=== PATIENT | male | born 1935 | race Caucasian/White ===

== ENCOUNTER 2017-05-31 08:48 | Inpatient (IN) | payer MEDICARE, OTHER ==
[~2017-05-31] VITALS: Ht 182.9 cm; Wt 112.0 kg
[~2017-05-31 08:48] MED LIST: /MOXI40TA; ACET500C OR; ALDA25TA PO; ALLEVE PO; ASPI81TA83; ASPI81TA83 OR; CARV12.5 OR; CARVEDILOL; COLA100C2; CORE6.25; FENT100D25; GLUC1000; GLUC1000 PO; IBUP-1114 PO; IBUP400T OR; LASI40TA PO; LEVO500T PO; LIDODERM; LISI-538 PO; MAGN64TASA PO; MILKSUS; NICO21DI5 TD; OCEA0.65; PERC5TAB8; PRED20TA; PRIN5TAB; SENN8.6T5; SIMV10TA2; SIMV80TA OR; TYLE325T5 PO; VISI0.054 OU; ZANT150T; ZOCO10TA PO; ZOCO40TA; [UNRECOGNIZED DRUG - OTHER]
[2017-05-31] MEDS ORDERED: ASPIRIN 81 MG CHEW TABLET PO ONE (09:45)
[2017-05-31] MEDS ORDERED: methylPREDNISolone INJ 125 MG/2 ML VIAL (J2930) IV ONE (10:00)
[2017-05-31] MEDS: IPRATROPIUM 0.5MG/ALBUTEROL 2.5MG INH SOL UD 3ML (DUONEB)(J7620) NEB PRN ×2 (10:15→10:27)
[2017-05-31 10:19] LABS: ABG BASE EXCESS 0.4 (-2.0-2.0); ABG HCO3 26.2 MEQ/L (22.0-26.0); ABG PARTIAL PRESSURE CO2 46.5 mmHg (35.0-45.0); ABG STANDARD HCO3 24.8 MEQ/L (22.0-26.0); ABG TOTAL CO2 27.6 MEQ/L (23.0-31.0); ABG pH (ARTERIAL) 7.368 UNITS (7.350-7.450)
--- NOTE | 2017-05-31 10:24 | REP ---
Portable chest, single AP view, patient sitting: Comparison is 04/27/2014. There is an infiltrate inferiorly in the left lung. The previous left pleural effusion has resolved. The right lung is clear. Cardiac size upper normal. Anaya, mediastinum, bony thorax unremarkable. Impression: Infiltrate inferiorly in the left lung. Signed by Kishan Holman MD 05/31/2017 10:16 A
[2017-05-31 10:26] LABS: BASO # 0.1 10^3/uL (0.0-0.2); BASO % 0.3 % (0.0-1.0); EOS # 0.1 10^3/uL (0.0-0.50); EOS % 0.3 % (0.0-3.0); IMMATURE GRANULOCYTE % 0.8 % (0-0); LYMPH # 0.9 10^3/uL (1.5-4.5); LYMPH % 4.7 % (24.0-44.0); MEAN CORPUSCULAR HEMOGLOBIN 30.2 pg (27.0-33.0); MEAN CORPUSCULAR HGB CONC 32.4 g/dl (32.0-36.5); MEAN CORPUSCULAR VOLUME 93.2 fl (80.0-96.0); MONO # 1.4 10^3/uL (0.0-0.8); MONO % 7.6 % (0.0-5.0); NEUTROPHILS # 15.7 10^3/uL (1.8-7.7); NEUTROPHILS % 86.3 % (36.0-66.0); PLATELET COUNT, AUTOMATED 220 10^3/uL (150-450); RED CELL DISTRIBUTION WIDTH 14.8 % (11.5-14.5); WHITE BLOOD COUNT 18.2 10^3/uL (4.0-10.0)
[2017-05-31 10:41] LABS: ANION GAP 8 MEQ/L (8-16); BLOOD UREA NITROGEN 12 MG/DL (7-18); CALCIUM LEVEL 8.8 MG/DL (8.8-10.2); CARBON DIOXIDE LEVEL 27 MEQ/L (21-32); CHLORIDE LEVEL 104 MEQ/L (98-107); CREATININE FOR GFR 0.86 MG/DL (0.70-1.30); GLOMERULAR FILTRATION RATE > 60.0 (>35); GLUCOSE, FASTING 100 MG/DL (83-110); POTASSIUM SERUM 3.8 MEQ/L (3.5-5.1); SODIUM LEVEL 139 MEQ/L (136-145)
[2017-05-31 10:48] LABS: ALBUMIN/GLOBULIN RATIO 0.7 (1.00-1.93); BILIRUBIN,DIRECT 0.2 MG/DL (0.0-0.2); BILIRUBIN,TOTAL 0.6 MG/DL (0.2-1.0); TOTAL PROTEIN 7.3 GM/DL (6.4-8.2)
[2017-05-31] MEDS ORDERED: LevoFLOXacin IV 750 MG in APPROPRIATE DILUENT 1 EA IV ONE (11:00)
[2017-05-31] MEDS ORDERED: ASPI325T28 PO (11:05)
[2017-05-31] MEDS ORDERED: ALEV220T26 PO (11:05)
[2017-05-31] MEDS ORDERED: SALI0.6523 (11:05)
[2017-05-31] MEDS ORDERED: ACETAMINOPHEN TAB 650MG DOSE (2X325MG) PO PRN (11:45)
--- NOTE | 2017-05-31 16:16 | HPEPDOC ---
General Date of Admission May 31, 2017 at 11:38 Chief Complaint The patient is a 82-year-old male Presented to the ER with complaints of SOB, productive cough and subjective fever / chills. History of Present Illness Patient is a 82 year old male with a PMHx of COPD (not on oxygen), HTN , DLP, Chronic LE edema, Hx of AAA Peptic ulcer disease - s/p partial gastrectomy, who presented to the ER with complaints of worsening SOB Patient noted he had SOB and productive cough with yellow / green sputum for 1 month duration. He noted that there was no blood in his sputum. He also noted associated chills, denied fevers. Patient has also noted that he has associate left lower chest pain. Rate the pain as a 3/10, sharp, non-radiating, intermittent, possibly worsening with coughing / position. He denied any nausea, vomiting, abdominal pain, diarrhea or dysuria. He did not constipation. He denied any change in his weight or appetite. He has noted that he follows with Dr. Den Abarca 1 year ago, but subsequently didnt follow up with them since then. Since then he has stopped all his medications and has only been on ASA and Alieve. Upon arrival in the ER he had wheezing on physical exam. Imaging was consistent with a left lower lobe pneumonia. He was given a dose of Levaquin 750 IV and Methylprednisolone 125mg. Home Medications Scheduled PRN (Saline Nasal Orwell) 0.65 % Spr, 1 SPRAY NA for NASAL DRYNESS, (Reported) Aspirin (Aspirin) 325 Mg Tab, 325 MG PO for PAIN, (Reported) Naproxen Sodium (Aleve) 220 Mg Tab, 220 MG PO for PAIN, (Reported) Allergies Coded Allergies: Penicillins (Verified Allergy, Intermediate, RASH, 11/08/12) Penicillins Cross Reactors (Verified Allergy, Intermediate, RASH, 11/08/12) Morphine (Verified Adverse Reaction, Mild, N/V, 11/08/12) Past Medical History Medical History COPD (not on oxygen), HTN, DLP, Chronic LE edema, Hx of AAA Peptic ulcer disease - s/p Partial gastrectomy Surgical History Peptic ulcer repair (1961) Cardiac catheterization (15 years prior) Hernia repair Cholecystectomy Family History - Non-contributory given advanced age Social History - Denies the use of illicit drugs; Smoker since life at 1 ppd, Social alcohol use - Denies recent travel or sick contacts - Lives alone - Occupation; Unemployed, worked on [employer] Review of Symptoms Other systems Negative otherwise stated in HPI Vital Signs - Vitals: BP 146/81, HR 86, RR 16, Sat 93%NC2L, Temp 98.1 - General: Lying in bed, No acute distress, Speaking in full sentences, AAOx3 - HEENT: NC, AT, PERRLA, EOMI - CVS: RRR, +S1S2 - Lungs: Fair air entry bilaterally Left lower lung with rhonchi - Abdomen: Soft, Non-distended, Non-tender - Extremities: 2+ pitting edema bilaterally, No calf tenderness - Neuro: No focal motor or sensory deficit - Skin: No visible rashes Laboratory Data Labs 24H Laboratory Tests 2 05/31/17 09:58: Immature Granulocyte % (Auto) 0.8H, White Blood Count 18.2H, Red Blood Count 4.44, Hemoglobin 13.4L, Hematocrit 41.4L, Mean Corpuscular Volume 93.2, Mean Corpuscular Hemoglobin 30.2, Mean Corpuscular Hemoglobin Concent 32.4, Red Cell Distribution Width 14.8H, Platelet Count 220, Neutrophils (%) (Auto) 86.3H, Lymphocytes (%) (Auto) 4.7L, Monocytes (%) (Auto) 7.6H, Eosinophils (%) (Auto) 0.3, Basophils (%) (Auto) 0.3, Neutrophils # (Auto) 15.7H, Lymphocytes # (Auto) 0.9L, Monocytes # (Auto) 1.4H, Eosinophils # (Auto) 0.1, Basophils # (Auto) 0.1 , Immature Granulocyte # (Auto) 0.2H, Nucleated Red Blood Cells % (auto) 0.0, Anion Gap 8, Glomerular Filtration Rate > 60.0, Estimated Mean Plasma Glucose 140H, Hemoglobin A1c 6.5H, Blood Urea Nitrogen 12, Creatinine 0.86, Sodium Level 139, Potassium Level 3.8, Chloride Level 104, Carbon Dioxide Level 27, Calcium Level 8.8, Total Creatine Kinase 162, Creatine Kinase MB 2.0, Creatine Kinase MB Relative Index 1.23, Troponin I < 0.02 05/31/17 09:59: Lactic Acid Level 0.8, Aspartate Amino Transf (AST/SGOT) 14L, Alanine Aminotransferase (ALT/SGPT) 14, Alkaline Phosphatase 87, Total Bilirubin 0.6, Direct Bilirubin 0.2, WF-Aug-W-Type Natriuretic Peptide 737H, Total Protein 7.3 , Albumin 3.0L, Albumin/Globulin Ratio 0.70L, Thyroid Stimulating Hormone (TSH) 3.270 05/31/17 10:02: Blood Gas Bicarbonate Standard 24.8, Arterial Blood pH 7.368, Arterial Blood Partial Pressure CO2 46.5H, Arterial Blood Partial Pressure O2 92.0, Arterial Blood Total CO2 27.6, Arterial Blood HCO3 26.2H, Arterial Blood Base Excess 0.4 , Arterial Blood Oxygen Saturation 97.0 05/31/17 15:48: CBC/BMP Laboratory Tests 05/31/17 09:58 Red Blood Count 4.44, Mean Corpuscular Volume 93.2, Mean Corpuscular Hemoglobin 30.2, Mean Corpuscular Hemoglobin Concent 32.4, Red Cell Distribution Width 14.8 H, Neutrophils (%) (Auto) 86.3 H, Lymphocytes (%) (Auto) 4.7 L, Monocytes ( %) (Auto) 7.6 H, Eosinophils (%) (Auto) 0.3, Basophils (%) (Auto) 0.3, Neutrophils # (Auto) 15.7 H, Lymphocytes # (Auto) 0.9 L, Monocytes # (Auto) 1.4 H, Eosinophils # (Auto) 0.1, Basophils # (Auto) 0.1, Calcium Level 8.8, Total Creatine Kinase 162 Microbiology Microbiology 05/31/17 Blood Culture, Received Pending 05/31/17 Blood Culture, Received Pending 05/31/17 Gram Stain - Final, Resulted 05/31/17 Sputum Culture, Resulted Pending Plan / VTE VTE Prophylaxis Ordered?: Yes Plan Plan SOB, Productive cough and Chills likely 2/2 Community acquired pneumonia - Presented with 1 month history of SOB, productive cough, and chills - Found to require supplemental oxygen - Physical with left lower rhonchi - Labs with leukocytosis at 18 - ABG reveals mild pCO2 retention without any change in pH - CXR 05/31: infiltrate inferiorly in the left lung - c/w Levaquin 750 Acute on Chronic LE edema - possibly 2/2 CHF exacerbation - Notes that he has been having worsening of LE edema in last 2 months - Denies history of CHF - Physical with 2+ pitting edema bilaterally - CXR without evidence of fluid overload - ECHO 03/2014: Diastolic dysfunction, EF of 60% - Will order 2D-ECHO - c/w Strict ins and outs, daily weights - Started Furosemide 40 mg IV q12h COPD - Physical currently did not reveal wheezing - s/p Solumedrol 125mg in ER - c/w Duoneb inhaled therapy HTN - BP remains well controlled - Has not been on any medications as outpatient DLP - Has not been on any medications as outpatient Hx of AAA - Will get US abdomen Peptic ulcer disease - s/p Partial gastrectomy / GERD - Notes he experiences heart burn - Has not been on any medications as outpatient - Will start Protonix DVT prophylaxis - Will start Lovenox TALIA VIDAL MD May 31, 2017 16:15
[2017-05-31 17:15] VITALS: BP 173/117
[2017-05-31] MEDS: SENOKOT S TAB PO SCH ×2 (17:58→20:47)
[2017-05-31] MEDS: FUROSEMIDE 40 MG/4 ML VIAL (J1940) IV SCH ×2 (17:58→18:30)
[2017-05-31 18:08] VITALS: BP 148/88
[2017-05-31] MEDS: ENOXAPARIN 40 MG/0.4 ML SYRINGE (J1650) SC SCH (18:30)
[2017-05-31] MEDS: PANTOPRAZOLE 40MG TAB (PROTONIX) PO SCH (18:31)
[2017-05-31 20:00] VITALS: BP 139/66
--- NOTE | 2017-05-31 21:10 | ECGEPIP ---
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
[2017-06-01] VITALS: BP 137/70
[2017-06-01] MEDS: BENZONATATE 100 MG CAP PO SCH ×4 (00:45→21:39)
[2017-06-01] MEDS ORDERED: SLF 3 ML SYR IV PRN (02:15)
[2017-06-01 04:00] VITALS: BP 128/60
[2017-06-01 05:47] LABS: BASO % 0.2 % (0.0-1.0); IMMATURE GRANULOCYTE % 1.2 % (0-0); LYMPH # 0.8 10^3/uL (1.5-4.5); LYMPH % 4.3 % (24.0-44.0); MEAN CORPUSCULAR HEMOGLOBIN 30.1 pg (27.0-33.0); MEAN CORPUSCULAR HGB CONC 32.6 g/dl (32.0-36.5); MEAN CORPUSCULAR VOLUME 92.3 fl (80.0-96.0); MONO # 0.9 10^3/uL (0.0-0.8); MONO % 5.3 % (0.0-5.0); NEUTROPHILS # 15.8 10^3/uL (1.8-7.7); PLATELET COUNT, AUTOMATED 232 10^3/uL (150-450); RED CELL DISTRIBUTION WIDTH 14.6 % (11.5-14.5); WHITE BLOOD COUNT 17.8 10^3/uL (4.0-10.0)
[2017-06-01 06:18] LABS: ALBUMIN 2.7 GM/DL (3.2-5.2); ALBUMIN/GLOBULIN RATIO 0.61 (1.00-1.93); ALKALINE PHOSPHATASE 84 U/L (45-117); ALT/SGPT 17 U/L (12-78); ANION GAP 7 MEQ/L (8-16); AST/SGOT 14 U/L (15-37); BILIRUBIN,TOTAL 0.2 MG/DL (0.2-1.0); BLOOD UREA NITROGEN 19 MG/DL (7-18); CALCIUM LEVEL 8.9 MG/DL (8.8-10.2); CARBON DIOXIDE LEVEL 29 MEQ/L (21-32); CHLORIDE LEVEL 103 MEQ/L (98-107); CREATININE FOR GFR 1.12 MG/DL (0.70-1.30); GLOMERULAR FILTRATION RATE > 60.0 (>35); GLUCOSE, FASTING 160 MG/DL (83-110); MAGNESIUM LEVEL 1.8 MG/DL (1.8-2.4); POTASSIUM SERUM 4.3 MEQ/L (3.5-5.1); SODIUM LEVEL 139 MEQ/L (136-145); TOTAL PROTEIN 7.1 GM/DL (6.4-8.2)
[2017-06-01] MEDS: SLF 3 ML SYR IV SCH ×3 (07:01→21:43)
[2017-06-01 08:00] VITALS: BP 132/76
[2017-06-01] MEDS: FUROSEMIDE 40 MG/4 ML VIAL (J1940) IV SCH ×2 (09:33→17:53)
[2017-06-01] MEDS: PANTOPRAZOLE 40MG TAB (PROTONIX) PO SCH (09:33)
[2017-06-01] MEDS: SENOKOT S TAB PO SCH ×2 (09:33→21:40)
[2017-06-01] MEDS: ENOXAPARIN 40 MG/0.4 ML SYRINGE (J1650) SC SCH (09:33)
--- NOTE | 2017-06-01 09:41 | IPNPDOC ---
Subjective Date Seen The patient was seen on 06/01/17. Subjective Chief Complaint/HPI The patient is a 82-year-old male admitted with a reason for visit of Left Lower Lobe Pneumonia. Events since last encounter Denies c/o today. s/p US for AAA eval. Planned echo today. Remains oxygen dependent. Constitutional: Denies: Chills, Fever, Night Sweats Pulmonary: Reports: Dyspnea, Cough Cardiovascular: Denies: Chest Pain, Palpitations, Orthopnea, Paroxysmal Noc. Dyspnea, Lt Headedness Gastrointestinal: Denies: Nausea, Vomiting, Abdominal Pain, Diarrhea, Constipation Psych: Reports: Mood Normal, Denies: Depression, Memory Issues Objective Physical Examination General Exam: Positive: Alert, No Acute Distress Eye Exam: Positive: PERRLA, Conjunctiva & lids normal, EOMI, Negative: Sclera icteric ENT Exam: Positive: Atraumatic, Mucous membr. moist/pink, Pharynx Normal Neck Exam: Positive: Supple, Negative: JVD, thyromegaly Chest Exam: Positive: Diminished (throughout) Heart Exam: Positive: Rate Normal, Regular Rhythm, Normal S1, Normal S2, Negative: Murmurs, Rubs Telemetry: Positive: No significant arrhythmia Extremity Exam: Positive: Edema (2+) Assessment /Plan Problems (1) CHF (congestive heart failure) Problem Text: 2 diastolic dysfx-03/2014 TTE LVEF 60% 06/01 -1100 cc on fur 40 IV BID 05/31/17 TTE P 05/31/17 BNP 737 (2) Left lower lobe pneumonia Status: Acute Problem Text: D2 levo 750 IV 06/01 afebrile, WBC down to 17.8, less dyspnea/cough Oxygen dependent with 2LNC 05/31/17 CXR c large LLL opacity repeat CT chest 08/01/14 CT chest LLL posterior basilar consolidation, increased c/w 2008- concern for possible malignancy-patient REFUSED any workup at that time 05/31/17 BCX NG 05/31/17 SCX P (3) COPD exacerbation Status: Acute Problem Text: Duonebs q 6 hrs. Received 1 time dose of Solumedrol in ED. (4) Diabetes Status: Chronic Response to Treatment: Stable Problem Text: Continue diet control hgba1c 6.5 (5) AAA (abdominal aortic aneurysm) Status: Chronic Problem Text: 05/2017 now 47 mm diameter c 77mm length-plan outpatient f/u c Raad 07/2014 max shelton [address] chest (6) Non-compliance Status: Acute Problem Text: has difficulty with transportation for f/u appts. PFS aware. Plan/VTE VTE Prophylaxis Ordered?: Yes VS, I&O, 24H, Fishbone Vital Signs/I&O Vital Signs Date Time Temp Pulse Resp B/P (MAP) Pulse Ox O2 Delivery O2 Flow Rate FiO2 06/01/17 08:00 97.8 72 20 132/76 (94) 94 Nasal Cannula 2.0 I&O- Last 24 Hours up to 6 AM 06/02/17 06:00 Intake Total 0 ml Output Total 0 ml Balance 0 ml Laboratory Data 24H LABS Laboratory Tests 2 05/31/17 09:58: Immature Granulocyte % (Auto) 0.8H, White Blood Count 18.2H, Red Blood Count 4.44, Hemoglobin 13.4L, Hematocrit 41.4L, Mean Corpuscular Volume 93.2, Mean Corpuscular Hemoglobin 30.2, Mean Corpuscular Hemoglobin Concent 32.4, Red Cell Distribution Width 14.8H, Platelet Count 220, Neutrophils (%) (Auto) 86.3H, Lymphocytes (%) (Auto) 4.7L, Monocytes (%) (Auto) 7.6H, Eosinophils (%) (Auto) 0.3, Basophils (%) (Auto) 0.3, Neutrophils # (Auto) 15.7H, Lymphocytes # (Auto) 0.9L, Monocytes # (Auto) 1.4H, Eosinophils # (Auto) 0.1, Basophils # (Auto) 0.1 , Immature Granulocyte # (Auto) 0.2H, Nucleated Red Blood Cells % (auto) 0.0, Anion Gap 8, Glomerular Filtration Rate > 60.0, Estimated Mean Plasma Glucose 140H, Hemoglobin A1c 6.5H, Blood Urea Nitrogen 12, Creatinine 0.86, Sodium Level 139, Potassium Level 3.8, Chloride Level 104, Carbon Dioxide Level 27, Calcium Level 8.8, Total Creatine Kinase 162, Creatine Kinase MB 2.0, Creatine Kinase MB Relative Index 1.23, Troponin I < 0.02 05/31/17 09:59: Lactic Acid Level 0.8, Aspartate Amino Transf (AST/SGOT) 14L, Alanine Aminotransferase (ALT/SGPT) 14, Alkaline Phosphatase 87, Total Bilirubin 0.6, Direct Bilirubin 0.2, FX-Vop-L-Type Natriuretic Peptide 737H, Total Protein 7.3 , Albumin 3.0L, Albumin/Globulin Ratio 0.70L, Thyroid Stimulating Hormone (TSH) 3.270 05/31/17 10:02: Blood Gas Bicarbonate Standard 24.8, Arterial Blood pH 7.368, Arterial Blood Partial Pressure CO2 46.5H, Arterial Blood Partial Pressure O2 92.0, Arterial Blood Total CO2 27.6, Arterial Blood HCO3 26.2H, Arterial Blood Base Excess 0.4 , Arterial Blood Oxygen Saturation 97.0 05/31/17 15:48: Total Creatine Kinase 164, Creatine Kinase MB 2.1, Creatine Kinase MB Relative Index 1.28, Troponin I < 0.02 05/31/17 22:06: Total Creatine Kinase 179, Creatine Kinase MB 2.0, Creatine Kinase MB Relative Index 1.11, Troponin I < 0.02 06/01/17 05:31: Immature Granulocyte % (Auto) 1.2H, White Blood Count 17.8H, Red Blood Count 4.29L, Hemoglobin 12.9L, Hematocrit 39.6L, Mean Corpuscular Volume 92.3, Mean Corpuscular Hemoglobin 30.1, Mean Corpuscular Hemoglobin Concent 32.6, Red Cell Distribution Width 14.6H, Platelet Count 232, Neutrophils (%) (Auto) 89.0H, Lymphocytes (%) (Auto) 4.3L, Monocytes (%) (Auto) 5.3H, Eosinophils (%) (Auto) 0.0, Basophils (%) (Auto) 0.2, Neutrophils # (Auto) 15.8H, Lymphocytes # (Auto) 0.8L, Monocytes # (Auto) 0.9H, Eosinophils # (Auto) 0.0, Basophils # (Auto) 0.0 , Immature Granulocyte # (Auto) 0.2H, Nucleated Red Blood Cells % (auto) 0.0, Anion Gap 7L, Glomerular Filtration Rate > 60.0, Blood Urea Nitrogen 19#H, Creatinine 1.12, Sodium Level 139, Potassium Level 4.3, Chloride Level 103, Carbon Dioxide Level 29, Calcium Level 8.9, Aspartate Amino Transf (AST/SGOT) 14L, Alanine Aminotransferase (ALT/SGPT) 17, Alkaline Phosphatase 84, Total Bilirubin 0.2#, Total Protein 7.1, Albumin 2.7L, Magnesium Level 1.8, Albumin/ Globulin Ratio 0.61L CBC/BMP Laboratory Tests 05/31/17 09:58 Red Blood Count 4.44, Mean Corpuscular Volume 93.2, Mean Corpuscular Hemoglobin 30.2, Mean Corpuscular Hemoglobin Concent 32.4, Red Cell Distribution Width 14.8 H, Neutrophils (%) (Auto) 86.3 H, Lymphocytes (%) (Auto) 4.7 L, Monocytes ( %) (Auto) 7.6 H, Eosinophils (%) (Auto) 0.3, Basophils (%) (Auto) 0.3, Neutrophils # (Auto) 15.7 H, Lymphocytes # (Auto) 0.9 L, Monocytes # (Auto) 1.4 H, Eosinophils # (Auto) 0.1, Basophils # (Auto) 0.1, Calcium Level 8.8, Total Creatine Kinase 162 06/01/17 05:31 Red Blood Count 4.29 L, Mean Corpuscular Volume 92.3, Mean Corpuscular Hemoglobin 30.1, Mean Corpuscular Hemoglobin Concent 32.6, Red Cell Distribution Width 14.6 H, Neutrophils (%) (Auto) 89.0 H, Lymphocytes (%) (Auto ) 4.3 L, Monocytes (%) (Auto) 5.3 H, Eosinophils (%) (Auto) 0.0, Basophils (%) ( Auto) 0.2, Neutrophils # (Auto) 15.8 H, Lymphocytes # (Auto) 0.8 L, Monocytes # (Auto) 0.9 H, Eosinophils # (Auto) 0.0, Basophils # (Auto) 0.0, Calcium Level 8.9, Aspartate Amino Transf (AST/SGOT) 14 L, Alanine Aminotransferase (ALT/SGPT ) 17, Alkaline Phosphatase 84, Total Bilirubin 0.2 #, Total Protein 7.1, Albumin 2.7 L Microbiology Microbiology 05/31/17 Blood Culture, Received Pending 05/31/17 Blood Culture, Received Pending 05/31/17 Gram Stain - Final, Resulted 05/31/17 Sputum Culture, Resulted Pending Rosaura Buck Jun 01, 2017 09:41 Den Abarca M.D. Jun 01, 2017 16:05
--- NOTE | 2017-06-01 10:00 | REP ---
Abdominal aorta ultrasound: Abdominal Aortic Measurements are as follows: Proximal 2.7 cm AP 2.5 cm TRV Renal Artery Level 2.6 cm AP 3.0 cm TRV Mid Aorta 4.7 cm AP 4.4 cm TRV Distal Aorta 4.6 cm AP 4.0 cm TRV R Iliac Artery 1.9 cm AP 1.7 cm TRV L Iliac Artery 1.8 cm AP 1.8 cm TRV The study is technically limited because of bowel gas and patient body habitus. There is a fusiform aneurysm in the mid and distal aorta measuring up to 4.7 cm diameter. The aneurysm spans a craniocaudad length of 7.7 cm. The right and left common iliac arteries are ectatic. Signed by Kishan Holman MD 06/01/2017 09:51 A
[2017-06-01] MEDS: LevoFLOXacin IV 750 MG in APPROPRIATE DILUENT 1 EA IV SCH (11:24)
[2017-06-01 12:00] VITALS: BP 149/70
[2017-06-01 16:00] VITALS: BP 146/95
[2017-06-01] MEDS ORDERED: ISOVUE-370 76% 100ML VIAL (Q9967) As Ordered ONE (17:08)
[2017-06-01 20:00] VITALS: BP 126/90
--- NOTE | 2017-06-01 20:07 | REP ---
CT CHEST WITH CONTRAST: 06/01/2017. Comparison: Portable chest 05/31/2017, CT chest 08/01/2014. Clinical history: Left lower lobe chest radiograph opacity. Technique: The patient received 75 mL of Isovue 370 with scanning through the chest with coronal and sagittal reconstructions. Findings. Lungs are well inflated. The lungs are without definite effusion on the right. Small loculated pleural effusion on the left. Chronic opacity in the left lower lobe. Curvilinear stranding towards the hilum, pleural-based and similar, but not identical appearance in size to the previous CT. There is cylindrical bronchiectatic change in the lower lobe on the left. Areas of patchy fibrotic change in the lingula are also noted and stable. Heart not grossly enlarged. There is no pericardial thickening or effusion. The aorta has calcifications at the root, arch and descending portion without aneurysm or dissection. Central pulmonary arteries are without filling defect. No pathologic sized mediastinal or hilar adenopathy is noted. There is no axillary or supraclavicular mass. Bone windows show the sternum, manubrium, medial clavicle heads, scapulae, small portions of the humeral heads without destructive lesion. There are degenerative changes at the glenohumeral joints. Marginal osteophytes are seen throughout the thoracic spine with vacuum phenomenon at L1-2 at the lower end of the field of view. No compression deformity or paraspinal hematomas. Visualized ribs and scapula intact. In the upper abdomen that portion of liver included was unremarkable. There was no splenic mass seen and the spleen is only seen in part. Gallbladder surgically absent. Visualized pancreas intact. Retained food in the stomach. No hiatal hernia. Impression: 1. Zone of chronic consolidative opacity posterior basal segment of the left lower lobe, stable to slightly smaller compared to 2009 with curvilinear markings extending towards the hilum. I suspect rounded atelectasis or chronic fibrosis. Small loculated pleural effusion again seen. 2. No gross cardiomegaly. 3. COPD. Some underlying fibrotic changes without other acute finding. Signed by Guanaco Bhatt MD 06/01/2017 08:30 P
[2017-06-02] VITALS: BP 162/79
[2017-06-02 04:00] VITALS: BP 132/69
[2017-06-02 05:44] LABS: BASO # 0.1 10^3/uL (0.0-0.2); BASO % 0.4 % (0.0-1.0); EOS # 0.1 10^3/uL (0.0-0.50); EOS % 0.4 % (0.0-3.0); IMMATURE GRANULOCYTE % 1.1 % (0-0); LYMPH # 1.3 10^3/uL (1.5-4.5); LYMPH % 7.9 % (24.0-44.0); MEAN CORPUSCULAR HGB CONC 32.2 g/dl (32.0-36.5); MONO # 1.3 10^3/uL (0.0-0.8); MONO % 8.2 % (0.0-5.0); PLATELET COUNT, AUTOMATED 243 10^3/uL (150-450); RED CELL DISTRIBUTION WIDTH 14.9 % (11.5-14.5); WHITE BLOOD COUNT 15.9 10^3/uL (4.0-10.0)
[2017-06-02 06:08] LABS: ALBUMIN 2.6 GM/DL (3.2-5.2); ALKALINE PHOSPHATASE 88 U/L (45-117); ALT/SGPT 17 U/L (12-78); ANION GAP 4 MEQ/L (8-16); AST/SGOT 15 U/L (15-37); BILIRUBIN,TOTAL 0.2 MG/DL (0.2-1.0); BLOOD UREA NITROGEN 25 MG/DL (7-18); CALCIUM LEVEL 8.5 MG/DL (8.8-10.2); CARBON DIOXIDE LEVEL 34 MEQ/L (21-32); CHLORIDE LEVEL 103 MEQ/L (98-107); CREATININE FOR GFR 1.19 MG/DL (0.70-1.30); GLOMERULAR FILTRATION RATE > 60.0 (>35); GLUCOSE, FASTING 125 MG/DL (83-110); MAGNESIUM LEVEL 1.9 MG/DL (1.8-2.4); POTASSIUM SERUM 3.9 MEQ/L (3.5-5.1); SODIUM LEVEL 141 MEQ/L (136-145); TOTAL PROTEIN 6.9 GM/DL (6.4-8.2)
[2017-06-02] MEDS: SLF 3 ML SYR IV SCH ×3 (06:14→20:07)
[2017-06-02 08:00] VITALS: BP 130/88
[2017-06-02] MEDS: BENZONATATE 100 MG CAP PO SCH ×3 (08:25→20:07)
[2017-06-02] MEDS: PANTOPRAZOLE 40MG TAB (PROTONIX) PO SCH (08:25)
[2017-06-02] MEDS: FUROSEMIDE 40 MG/4 ML VIAL (J1940) IV SCH ×2 (08:25→17:23)
[2017-06-02] MEDS: ENOXAPARIN 40 MG/0.4 ML SYRINGE (J1650) SC SCH (08:26)
[2017-06-02] MEDS: SENOKOT S TAB PO SCH ×2 (08:26→20:07)
--- NOTE | 2017-06-02 09:04 | IPNPDOC ---
Subjective Date Seen The patient was seen on 06/02/17. Subjective Chief Complaint/HPI The patient is a 82-year-old male admitted with a reason for visit of Left Lower Lobe Pneumonia. Events since last encounter Improving symptoms. Denies c/o today. Constitutional: Denies: Chills, Fever, Night Sweats Pulmonary: Reports: Dyspnea, Cough Cardiovascular: Denies: Chest Pain, Palpitations, Orthopnea Gastrointestinal: Denies: Nausea, Vomiting, Abdominal Pain, Diarrhea, Constipation Genitourinary: Denies: Dysuria, Frequency, Incontinence, Retention Objective Physical Examination General Exam: Positive: Alert, No Acute Distress Eye Exam: Positive: PERRLA, Conjunctiva & lids normal, EOMI, Negative: Sclera icteric ENT Exam: Positive: Atraumatic, Mucous membr. moist/pink, Pharynx Normal Neck Exam: Positive: Supple, Negative: JVD, thyromegaly Chest Exam: Positive: Wheezing, Diminished (throughout) Heart Exam: Positive: Rate Normal, Regular Rhythm, Normal S1, Normal S2, Negative: Murmurs, Rubs Telemetry: Positive: No significant arrhythmia Extremity Exam: Positive: Edema (2+) Assessment /Plan Problems (1) Diastolic CHF, acute on chronic Problem Text: 06/02/17: Echo ordered for this admission. H/o diastolic dysfunction: 03/2014 TTE LVEF 60% 06/01: Net -1100 cc on fur 40 IV BID 05/31/17 TTE P 05/31/17 BNP 737 (2) Left lower lobe pneumonia Status: Acute Problem Text: D3 levo 750 IV 06/02/17: add on Solumedrol for wheezing. remains oxygen dependent. may need to go home with oxygen. 06/01 afebrile, WBC down to 17.8, less dyspnea/cough; oxygen dependent with 2LNC Chest CT on 06/01: 1. Zone of chronic consolidative opacity posterior basal segment of the left lower lobe, stable to slightly smaller compared to 2008 with curvilinear markings extending towards the hilum. I suspect rounded atelectasis or chronic fibrosis. Small loculated pleural effusion again seen 05/31/17 CXR c large LLL opacity 08/01/14 CT chest LLL posterior basilar consolidation, increased c/w 2008- concern for possible malignancy-patient REFUSED any workup at that time 05/31/17 BCX NG 05/31/17 SCX P (3) COPD exacerbation Status: Acute Problem Text: 06/02/17: add on Solumedrol for wheezing. remains oxygen dependent. may need to go home with oxygen Duonebs q 6 hrs. Received 1 time dose of Solumedrol in ED. (4) Diabetes Status: Chronic Response to Treatment: Stable Problem Text: Continue diet control Hgb A1c 6.5 (5) AAA (abdominal aortic aneurysm) Status: Chronic Problem Text: 05/2017 now 47 mm diameter with 77mm length - plan outpatient f/ u with Dr. Shankar 07/2014 max diameter [address] chest (6) Non-compliance Status: Acute Problem Text: has difficulty with transportation for f/u appts. PFS aware. Plan/VTE VTE Prophylaxis Ordered?: Yes Plan Family Medicine Attending Note: I saw and examined Mr. Tamayo this afternoon; I discussed his care with RK Hutton and I agree with her note as documented. The patient states he is feeling better but has poor air movement is still requiring O2 - I agree that we may need to arrange for home O2. I discussed with him the importance of following up with Dr. Abarca and seeing vascular surgery; I advised him that his AAA could rupture and cause if not treated. He states he is willing to meet with the surgeon but he is not sure if he is willing to undergo surgery. (KES) VS, I&O, 24H, Fishbone Vital Signs/I&O Vital Signs Date Time Temp Pulse Resp B/P (MAP) Pulse Ox O2 Delivery O2 Flow Rate FiO2 06/02/17 08:28 Nasal Cannula 3.0 06/02/17 08:00 97.4 82 20 130/88 (102) 91 I&O- Last 24 Hours up to 6 AM 06/03/17 06:00 Output Total 100 ml Balance -100 ml Laboratory Data 24H LABS Laboratory Tests 2 06/01/17 21:42: Bedside Glucose (Misc Panel) 143H 06/02/17 05:25: Immature Granulocyte % (Auto) 1.1H, White Blood Count 15.9H, Red Blood Count 4.27L, Hemoglobin 12.8L, Hematocrit 39.7L, Mean Corpuscular Volume 93.0, Mean Corpuscular Hemoglobin 30.0, Mean Corpuscular Hemoglobin Concent 32.2, Red Cell Distribution Width 14.9H, Platelet Count 243, Neutrophils (%) (Auto) 82.0H, Lymphocytes (%) (Auto) 7.9L, Monocytes (%) (Auto) 8.2H, Eosinophils (%) (Auto) 0.4, Basophils (%) (Auto) 0.4, Neutrophils # (Auto) 13.0H, Lymphocytes # (Auto) 1.3L, Monocytes # (Auto) 1.3H, Eosinophils # (Auto) 0.1, Basophils # (Auto) 0.1 , Immature Granulocyte # (Auto) 0.2H, Nucleated Red Blood Cells % (auto) 0.0, Anion Gap 4L, Glomerular Filtration Rate > 60.0, Blood Urea Nitrogen 25H, Creatinine 1.19, Sodium Level 141, Potassium Level 3.9, Chloride Level 103, Carbon Dioxide Level 34H, Calcium Level 8.5L, Aspartate Amino Transf (AST/SGOT) 15, Alanine Aminotransferase (ALT/SGPT) 17, Alkaline Phosphatase 88, Total Bilirubin 0.2, Total Protein 6.9, Albumin 2.6L, Magnesium Level 1.9, Albumin/ Globulin Ratio 0.60L CBC/BMP Laboratory Tests 06/02/17 05:25 Red Blood Count 4.27 L, Mean Corpuscular Volume 93.0, Mean Corpuscular Hemoglobin 30.0, Mean Corpuscular Hemoglobin Concent 32.2, Red Cell Distribution Width 14.9 H, Neutrophils (%) (Auto) 82.0 H, Lymphocytes (%) (Auto ) 7.9 L, Monocytes (%) (Auto) 8.2 H, Eosinophils (%) (Auto) 0.4, Basophils (%) ( Auto) 0.4, Neutrophils # (Auto) 13.0 H, Lymphocytes # (Auto) 1.3 L, Monocytes # (Auto) 1.3 H, Eosinophils # (Auto) 0.1, Basophils # (Auto) 0.1, Calcium Level 8.5 L, Aspartate Amino Transf (AST/SGOT) 15, Alanine Aminotransferase (ALT/SGPT ) 17, Alkaline Phosphatase 88, Total Bilirubin 0.2, Total Protein 6.9, Albumin 2.6 L Microbiology Microbiology 05/31/17 Blood Culture - Preliminary, Resulted No growth after 24 hours . All specim... 05/31/17 Blood Culture - Preliminary, Resulted No growth after 24 hours . All specim... 05/31/17 Gram Stain - Final, Complete 05/31/17 Sputum Culture - Final, Complete Rosaura Buck Jun 02, 2017 09:04 CORIN SINGH MD Jun 02, 2017 14:32
[2017-06-02] MEDS ORDERED: methylPREDNISolone INJ 125 MG/2 ML VIAL (J2930) IV ONE (09:30)
[2017-06-02] MEDS: LevoFLOXacin IV 750 MG in APPROPRIATE DILUENT 1 EA IV SCH (11:37)
[2017-06-02] MEDS ORDERED: INFLUENZA VIRUS VACCINE HIGH DOSE 0.5 ML SYRINGE (90662) IM ONE (12:00)
[2017-06-02] MEDS ORDERED: PREVNAR 13 VACCINE SYRINGE (CPT CODE:90670) IM ONE (12:00)
[2017-06-02 13:50] VITALS: BP 140/81
[2017-06-02] MEDS: methylPREDNISolone INJ 125 MG/2 ML VIAL (J2930) IV SCH (17:23)
[2017-06-02 20:11] VITALS: BP 134/61
[2017-06-03] MEDS: methylPREDNISolone INJ 125 MG/2 ML VIAL (J2930) IV SCH ×2 (00:54→08:57)
[2017-06-03 02:00] VITALS: BP 128/70
[2017-06-03 06:00] VITALS: BP 119/55
[2017-06-03] MEDS: SLF 3 ML SYR IV SCH ×3 (06:09→21:00)
--- NOTE | 2017-06-03 06:27 | ECHO ---
DATE OF PROCEDURE: 06/01/2017 DATE OF : 1935 AGE: 82 GENDER: Male HEIGHT: 72 inches WEIGHT: 264 pounds BODY SURFACE AREA: 2.4 meters squared INPATIENT: PCU Room 3224 REFERRING PHYSICIAN: Dr. Abelardo Mueller INDICATIONS: Chest pain. Edema. MEASUREMENTS: 2-D Measurements: RV: 3.9 cm LV: 4.9 cm Septum: 1.2 cm Posterior wall: 1.2 cm Aortic root: 3.6 cm LA: 4.5 cm LVEF: 60-65% Doppler Measurements: AV: 1.2 m/s LVOT: 0.73 m/s LVOT diameter: 2.5 cm MV - E: 63 A 83 EA ratio: 0.8 Early mitral deceleration time: 148 ms E prime: 6 A prime: 10 E/E prime ratio: 10.4 PV: 0.7 m/s Pulmonary artery acceleration time: 88 ms PASP: 39 mmHg IVC: 1.8 cm COMMENTS: Normal sinus rhythm without intraventricular conduction disturbance. Technically difficult study in light of the patient's body habitus and pulmonary disease, but some diagnostically useful information was still obtained. Mildly dilated left atrium, but normal left ventricular size. Right heart chamber sizes were normal. LV wall thickness was upper limits of normal to slightly hypertrophied. On real-time imaging from the parasternal and projections wall motion was symmetrical and normal. Mild mitral annular thickening, but normal leaflet thickness and excursion with no posterior systolic buckling. Three equal size aortic cusps with mildly thickened cusp edges, but adequate cusp separation. Normal aortic root size. No apparent intracardiac mass. Minuscule posterior pericardial effusion without evidence of cardiac chamber compression. Color flow Doppler study taken from the parasternal and apical projection showed trace mitral, but no aortic or more than trace tricuspid insufficiency. Guided continuous wave Doppler of his aortic valve showed a normal peak systolic velocity against LV outflow tract obstruction. Pulsed and continuous wave Doppler of his LV inflow tract taken from the apical four-chamber projection showed normal diastolic filling velocities against mitral stenosis. It was more prominent late diastolic/atrial dependent filling pattern. A degree of LV diastolic dysfunction was confirmed using tissue Doppler of his mitral annulus, but current estimated mean left atrial pressure was normal. Pulsed and continuous wave Doppler of his pulmonary trunk showed a normal peak systolic velocity against RV outflow tract obstruction. His pulmonary artery acceleration time was abbreviated suggestive of least a mildly elevated pulmonary vascular resistance and mild pulmonary hypertension. We attempted to further estimate his right ventricular systolic pressure using guided continuous wave Doppler of his tricuspid valve, but could not get a clear spectral envelope. His inferior vena cava was of normal size with normal respiratory collapse against an elevated central venous pressure. CONCLUSIONS: Technically difficult study. Borderline concentric left ventricle hypertrophy with preserved systolic function. Mildly dilated left atrium with Doppler evidence of an impairment of LV diastolic function, but currently normal estimated mean left atrial pressure. Normal right heart chamber sizes and wall motion with Doppler evidence of mild pulmonary hypertension. Normal IVC size and collapse against an elevated central venous pressure. Degenerative changes of his mitral and aortic valvular apparatus without functional valvular abnormality. Minuscule posterior pericardial effusion (possibly physiologic) - clearly no signs of cardiac chamber compression.
[2017-06-03 06:49] LABS: BASO % 0.2 % (0.0-1.0); IMMATURE GRANULOCYTE % 1.9 % (0-0); LYMPH # 0.7 10^3/uL (1.5-4.5); LYMPH % 5.8 % (24.0-44.0); MEAN CORPUSCULAR HEMOGLOBIN 30.3 pg (27.0-33.0); MEAN CORPUSCULAR HGB CONC 32.9 g/dl (32.0-36.5); MEAN CORPUSCULAR VOLUME 92.1 fl (80.0-96.0); MONO # 0.3 10^3/uL (0.0-0.8); MONO % 2.3 % (0.0-5.0); NEUTROPHILS # 10.8 10^3/uL (1.8-7.7); NEUTROPHILS % 89.8 % (36.0-66.0); PLATELET COUNT, AUTOMATED 270 10^3/uL (150-450); RED CELL DISTRIBUTION WIDTH 14.8 % (11.5-14.5)
[2017-06-03 07:14] LABS: ALBUMIN 2.7 GM/DL (3.2-5.2); ALBUMIN/GLOBULIN RATIO 0.63 (1.00-1.93); ALKALINE PHOSPHATASE 85 U/L (45-117); ALT/SGPT 17 U/L (12-78); ANION GAP 4 MEQ/L (8-16); AST/SGOT 12 U/L (15-37); BILIRUBIN,TOTAL 0.2 MG/DL (0.2-1.0); BLOOD UREA NITROGEN 30 MG/DL (7-18); CALCIUM LEVEL 8.6 MG/DL (8.8-10.2); CARBON DIOXIDE LEVEL 34 MEQ/L (21-32); CHLORIDE LEVEL 100 MEQ/L (98-107); GLOMERULAR FILTRATION RATE > 60.0 (>35); GLUCOSE, FASTING 185 MG/DL (83-110); MAGNESIUM LEVEL 1.9 MG/DL (1.8-2.4); SODIUM LEVEL 138 MEQ/L (136-145)
[2017-06-03] MEDS: ENOXAPARIN 40 MG/0.4 ML SYRINGE (J1650) SC SCH (08:57)
[2017-06-03] MEDS: PANTOPRAZOLE 40MG TAB (PROTONIX) PO SCH (08:57)
[2017-06-03] MEDS: BENZONATATE 100 MG CAP PO SCH ×3 (08:57→20:47)
[2017-06-03] MEDS: FUROSEMIDE 40 MG/4 ML VIAL (J1940) IV SCH ×2 (08:57→16:53)
[2017-06-03] MEDS: SENOKOT S TAB PO SCH ×2 (09:04→20:47)
[2017-06-03 10:00] VITALS: BP 121/61
--- NOTE | 2017-06-03 10:26 | IPNPDOC ---
Subjective Date Seen The patient was seen on 06/03/17. Subjective Chief Complaint/HPI The patient is a 82-year-old male admitted with a reason for visit of Left Lower Lobe Pneumonia. Events since last encounter States breathing symptoms at baseline. Remains oxygen dependent. Does not want to go home with oxygen. Constitutional: Denies: Chills, Fever, Night Sweats Pulmonary: Reports: Dyspnea (baseline) Cardiovascular: Denies: Chest Pain, Palpitations, Orthopnea, Paroxysmal Noc. Dyspnea, Lt Headedness Gastrointestinal: Denies: Nausea, Vomiting, Abdominal Pain, Diarrhea, Constipation Objective Physical Examination General Exam: Positive: Alert, No Acute Distress Eye Exam: Positive: PERRLA, Conjunctiva & lids normal, EOMI, Negative: Sclera icteric ENT Exam: Positive: Atraumatic, Mucous membr. moist/pink, Pharynx Normal Neck Exam: Positive: Supple, Negative: JVD, thyromegaly Chest Exam: Positive: Diminished (throughout), Negative: Wheezing Heart Exam: Positive: Rate Normal, Regular Rhythm, Normal S1, Normal S2, Negative: Murmurs, Rubs Telemetry: Positive: No significant arrhythmia Extremity Exam: Positive: Edema (2+) Assessment /Plan Problems (1) Diastolic CHF, acute on chronic Problem Text: CONCLUSIONS: Technically difficult study. Borderline concentric left ventricle hypertrophy with preserved systolic function. Mildly dilated left atrium with Doppler evidence of an impairment of LV diastolic function, but currently normal estimated mean left atrial pressure. Normal right heart chamber sizes and wall motion with Doppler evidence of mild pulmonary hypertension. Normal IVC size and collapse against an elevated central venous pressure. Degenerative changes of his mitral and aortic valvular apparatus without functional valvular abnormality. Minuscule posterior pericardial effusion (possibly physiologic) - clearly no signs of cardiac chamber compression. 06/02/17: Echo ordered for this admission. H/o diastolic dysfunction: 03/2014 TTE LVEF 60% 06/01: Net -1100 cc on fur 40 IV BID 05/31/17 TTE P 05/31/17 BNP 737 (2) Left lower lobe pneumonia Status: Acute Problem Text: D4 levo 750 IV 06/02/17: add on Solumedrol for wheezing. remains oxygen dependent. may need to go home with oxygen. 06/01 afebrile, WBC down to 17.8, less dyspnea/cough; oxygen dependent with 2LNC Chest CT on 10/24: 1. Zone of chronic consolidative opacity posterior basal segment of the left lower lobe, stable to slightly smaller compared to 2008 with curvilinear markings extending towards the hilum. I suspect rounded atelectasis or chronic fibrosis. Small loculated pleural effusion again seen 05/31/17 CXR c large LLL opacity 08/01/14 CT chest LLL posterior basilar consolidation, increased c/w 2008- concern for possible malignancy-patient REFUSED any workup at that time 05/31/17 BCX NG 05/31/17 SCX P (3) COPD exacerbation Status: Acute Problem Text: 06/03/17: start prednisone 40 mg po daily. 06/02/17: add on Solumedrol for wheezing. remains oxygen dependent. may need to go home with oxygen Duonebs q 6 hrs. Received 1 time dose of Solumedrol in ED. (4) Diabetes Status: Chronic Response to Treatment: Stable Problem Text: Continue diet control Hgb A1c 6.5 (5) AAA (abdominal aortic aneurysm) Status: Chronic Problem Text: 05/2017 now 47 mm diameter with 77mm length - plan outpatient f/ u with Dr. Shankar 07/2014 max diameter [address] chest (6) Non-compliance Status: Acute Problem Text: has difficulty with transportation for f/u appts. PFS aware. Plan/VTE VTE Prophylaxis Ordered?: Yes Plan Family Medicine Attending Note: I saw and examined Mr. Tamayo this morning; I discussed his care with RK Hutton and I agree with her note as documented. Will trial patient on room air today to determine if he needs O2; he is likely a long-standing CO2 retainer, so goal O2 sat is 88-92%. We can likely discharge him home tomorrow, perhaps with home O2 if needed. (KES) VS, I&O, 24H, Fishbone Vital Signs/I&O Vital Signs Date Time Temp Pulse Resp B/P (MAP) Pulse Ox O2 Delivery O2 Flow Rate FiO2 06/03/17 06:00 98.2 72 18 119/55 (76) 91 Nasal Cannula 2.0 Laboratory Data 24H LABS Laboratory Tests 2 06/03/17 06:16: Immature Granulocyte % (Auto) 1.9H, White Blood Count 12.0H, Red Blood Count 4.29L, Hemoglobin 13.0L, Hematocrit 39.5L, Mean Corpuscular Volume 92.1, Mean Corpuscular Hemoglobin 30.3, Mean Corpuscular Hemoglobin Concent 32.9, Red Cell Distribution Width 14.8H, Platelet Count 270, Neutrophils (%) (Auto) 89.8H, Lymphocytes (%) (Auto) 5.8L, Monocytes (%) (Auto) 2.3, Eosinophils (%) (Auto) 0.0, Basophils (%) (Auto) 0.2, Neutrophils # (Auto) 10.8H, Lymphocytes # (Auto) 0.7L, Monocytes # (Auto) 0.3, Eosinophils # (Auto) 0.0, Basophils # (Auto) 0.0, Immature Granulocyte # (Auto) 0.2H, Nucleated Red Blood Cells % (auto) 0.0, Anion Gap 4L, Glomerular Filtration Rate > 60.0, Blood Urea Nitrogen 30H, Creatinine 1.20, Sodium Level 138, Potassium Level 4.0, Chloride Level 100, Carbon Dioxide Level 34H, Calcium Level 8.6L, Aspartate Amino Transf (AST/SGOT) 12L, Alanine Aminotransferase (ALT/SGPT) 17, Alkaline Phosphatase 85, Total Bilirubin 0.2, Total Protein 7.0, Albumin 2.7L, Magnesium Level 1.9, Albumin/ Globulin Ratio 0.63L CBC/BMP Laboratory Tests 06/03/17 06:16 Red Blood Count 4.29 L, Mean Corpuscular Volume 92.1, Mean Corpuscular Hemoglobin 30.3, Mean Corpuscular Hemoglobin Concent 32.9, Red Cell Distribution Width 14.8 H, Neutrophils (%) (Auto) 89.8 H, Lymphocytes (%) (Auto ) 5.8 L, Monocytes (%) (Auto) 2.3, Eosinophils (%) (Auto) 0.0, Basophils (%) ( Auto) 0.2, Neutrophils # (Auto) 10.8 H, Lymphocytes # (Auto) 0.7 L, Monocytes # (Auto) 0.3, Eosinophils # (Auto) 0.0, Basophils # (Auto) 0.0, Calcium Level 8.6 L, Aspartate Amino Transf (AST/SGOT) 12 L, Alanine Aminotransferase (ALT/SGPT) 17, Alkaline Phosphatase 85, Total Bilirubin 0.2, Total Protein 7.0, Albumin 2.7 L Microbiology Microbiology 05/31/17 Blood Culture - Preliminary, Resulted No Growth after 48 hours. All Specime... 05/31/17 Blood Culture - Preliminary, Resulted No Growth after 72 hours. All specime... 05/31/17 Gram Stain - Final, Complete 05/31/17 Sputum Culture - Final, Complete Rosaura Buck Jun 03, 2017 10:26 CORIN SINGH MD Jun 03, 2017 15:20
[2017-06-03] MEDS: predniSONE 20 MG TAB PO SCH (11:18)
[2017-06-03] MEDS: LevoFLOXacin IV 750 MG in APPROPRIATE DILUENT 1 EA IV SCH (11:18)
[2017-06-03 14:00] VITALS: BP 110/70
[2017-06-03 20:00] VITALS: BP 151/81
[2017-06-04] VITALS: BP 136/62
[2017-06-04 04:00] VITALS: BP 148/62
[2017-06-04] MEDS ORDERED: LevoFLOXacin 750 MG TABLET PO SCH (06:00)
[2017-06-04] MEDS: SLF 3 ML SYR IV SCH (06:00)
[2017-06-04 07:05] LABS: BASO # 0.1 10^3/uL (0.0-0.2); BASO % 0.4 % (0.0-1.0); IMMATURE GRANULOCYTE % 2.4 % (0-0); LYMPH # 1.6 10^3/uL (1.5-4.5); LYMPH % 10.3 % (24.0-44.0); MEAN CORPUSCULAR HEMOGLOBIN 30.3 pg (27.0-33.0); MEAN CORPUSCULAR HGB CONC 33.3 g/dl (32.0-36.5); MEAN CORPUSCULAR VOLUME 90.9 fl (80.0-96.0); MONO # 1.1 10^3/uL (0.0-0.8); MONO % 7.2 % (0.0-5.0); NEUTROPHILS # 12.4 10^3/uL (1.8-7.7); NEUTROPHILS % 79.7 % (36.0-66.0); PLATELET COUNT, AUTOMATED 289 10^3/uL (150-450); RED CELL DISTRIBUTION WIDTH 14.6 % (11.5-14.5); WHITE BLOOD COUNT 15.6 10^3/uL (4.0-10.0)
[2017-06-04 07:24] LABS: ALBUMIN 2.8 GM/DL (3.2-5.2); ALBUMIN/GLOBULIN RATIO 0.64 (1.00-1.93); BILIRUBIN,TOTAL 0.2 MG/DL (0.2-1.0); CALCIUM LEVEL 8.7 MG/DL (8.8-10.2); CREATININE FOR GFR 1.5 MG/DL (0.70-1.30); GLOMERULAR FILTRATION RATE 47.7 (>35); POTASSIUM SERUM 3.7 MEQ/L (3.5-5.1); TOTAL PROTEIN 7.2 GM/DL (6.4-8.2)
[2017-06-04] MEDS ORDERED: LEVA750T7 PO (08:43)
[2017-06-04] MEDS ORDERED: LASI20TA PO (08:43)
[2017-06-04] MEDS ORDERED: BENZ100C5 PO (08:43)
[2017-06-04] MEDS ORDERED: PRED20TA PO (08:43)
[2017-06-04] MEDS: FUROSEMIDE 40 MG/4 ML VIAL (J1940) IV SCH (09:00)
[2017-06-04] MEDS: predniSONE 20 MG TAB PO SCH (09:04)
[2017-06-04] MEDS: SENOKOT S TAB PO SCH (09:04)
[2017-06-04] MEDS: PANTOPRAZOLE 40MG TAB (PROTONIX) PO SCH (09:04)
[2017-06-04] MEDS: ENOXAPARIN 40 MG/0.4 ML SYRINGE (J1650) SC SCH (09:04)
[2017-06-04] MEDS: BENZONATATE 100 MG CAP PO SCH (09:04)
[2017-06-04 09:06] VITALS: BP 103/70
[2017-06-04 10:00] VITALS: BP 107/68
--- NOTE | 2017-06-07 16:01 | DSES ---
DATE OF ADMISSION: 05/31/2017 DATE OF DISCHARGE: 06/04/2017 PRIMARY CARE PROVIDER: Dr. Den Abarca ATTENDING PHYSICIAN: Dr. Essie Fragoso HISTORY: This is an 82-year-old male patient with chronic obstructive pulmonary disease (COPD), hypertension, history of abdominal aortic aneurysm (AAA), peptic ulcer disease, partial gastrectomy who presented to [facility] Emergency Room complaining of worsening shortness of breath as well as productive cough, generally not feeling well, denied any associated fever or chills. He had not been in to see Dr. Abarca in over a year. He was admitted to the hospital with left lower lobe pneumonia, acute on chronic diastolic congestive heart failure. He was started on IV Solu-Medrol and Levaquin. The IV Solu-Medrol has been transitioned to prednisone. We will send him home on oral Levaquin. He has been receiving IV Lasix during his hospitalization. We will change him to oral 20 mg daily. He will need close followup for dose adjustment. His pressures have remained stable. He did receive an echocardiogram during his hospitalization which was suggestive of impairment of left ventricular diastolic function with mildly dilated left atrium, borderline concentric left ventricular hypertrophy (LVH) with preserved systolic function, normal right heart chamber and wall motion, mild pulmonary hypertension. His abdominal ultrasound was performed with a mid and distal aorta measuring 4.7 cm in diameter. Cranial caudal length is 7.7 cm. DISCHARGE DIAGNOSES: Include: 1. Left lower lobe pneumonia. 2. Acute on chronic diastolic congestive heart failure. 3. Chronic obstructive pulmonary disease (COPD) exacerbation. 4. Diabetes mellitus type 2. 5. History of abdominal aortic aneurysm. 6. Medical noncompliance. DISCHARGE MEDICATIONS: Include: - benzonatate 100 mg by mouth three times a day - Lasix 20 mg daily - Levaquin 750 mg by mouth daily times seven days - prednisone 20 mg daily times three additional days and then he can discontinue - aspirin 325 mg daily - saline nasal spray as needed - naproxen 220 mg as needed for pain DISCHARGE PLAN: Will be to followup with Dr. Abarca in one week. Activity should be as tolerated. Diet should be no-added salt. He received a high-dose flu and Prevnar-13 on 06/02/2017.
== END 2017-06-04 12:20 | disposition home or self-care (01) | DRG 193 ==
LOC: M ED 08:48 → M ED INP 11:38 → M PCU 17:14 → M MS4PR 06-02 13:40
PROVIDERS: ADMIT Internal Medicine; ATTEND Family Medicine
DX: J18.9 Pneumonia, unspecified organism (principal); I50.33 Acute on chronic diastolic (congestive) heart failure; J44.1 Chronic obstructive pulmonary disease with (acute) exacerbation; I11.0 Hypertensive heart disease with heart failure; I71.4 Abdominal aortic aneurysm, without rupture; E11.9 Type 2 diabetes mellitus without complications; Z91.19 Patient's noncompliance with other medical treatment and regimen; Z79.82 Long term (current) use of aspirin; Z79.899 Other long term (current) drug therapy; Z88.0 Allergy status to penicillin; Z88.5 Allergy status to narcotic agent; F17.200 Nicotine dependence, unspecified, uncomplicated; K27.9 Peptic ulcer, site unspecified, unspecified as acute or chronic, without hemorrhage or perforation

== ENCOUNTER → 2017-06-09 | Outpatient (REF) | payer MEDICARE, OTHER ==
[~2017-06-09] MED LIST changes: +ALEV220T26 PO; +ASPI325T28 PO; +BENZ100C5 PO; +LASI20TA PO; +LEVA750T7 PO; +PRED20TA PO; +SALI0.6523
[2017-06-09 10:12] LABS: BASO % 0.3 % (0.0-1.0); EOS # 0.1 10^3/uL (0.0-0.50); EOS % 0.7 % (0.0-3.0); IMMATURE GRANULOCYTE % 1.9 % (0-0); LYMPH # 1.3 10^3/uL (1.5-4.5); LYMPH % 9.7 % (24.0-44.0); MEAN CORPUSCULAR HEMOGLOBIN 29.7 pg (27.0-33.0); MEAN CORPUSCULAR HGB CONC 32.9 g/dl (32.0-36.5); MEAN CORPUSCULAR VOLUME 90.2 fl (80.0-96.0); MONO # 1.2 10^3/uL (0.0-0.8); MONO % 9.7 % (0.0-5.0); NEUTROPHILS % 77.7 % (36.0-66.0); PLATELET COUNT, AUTOMATED 181 10^3/uL (150-450); RED CELL DISTRIBUTION WIDTH 14.8 % (11.5-14.5); WHITE BLOOD COUNT 12.8 10^3/uL (4.0-10.0)
[2017-06-09 10:26] LABS: ALBUMIN 2.8 GM/DL (3.2-5.2); ALBUMIN/GLOBULIN RATIO 0.88 (1.00-1.93); ALKALINE PHOSPHATASE 71 U/L (45-117); ALT/SGPT 20 U/L (12-78); ANION GAP 5 MEQ/L (8-16); AST/SGOT 15 U/L (7-37); BILIRUBIN,TOTAL 0.7 MG/DL (0.2-1.0); BLOOD UREA NITROGEN 22 MG/DL (7-18); CALCIUM LEVEL 8.5 MG/DL (8.8-10.2); CARBON DIOXIDE LEVEL 32 MEQ/L (21-32); CHLORIDE LEVEL 102 MEQ/L (98-107); CHOLESTEROL LEVEL 114 MG/DL (<200); CREATININE FOR GFR 1.02 MG/DL (0.70-1.30); FERRITIN 131 NG/ML (26-388); GLOMERULAR FILTRATION RATE > 60.0 (>35); GLUCOSE, FASTING 115 MG/DL (83-110); MAGNESIUM LEVEL 1.8 MG/DL (1.8-2.4); PERCENT SATURATION 47.9 % (19.7-50.0); POTASSIUM SERUM 4.2 MEQ/L (3.5-5.1); SODIUM LEVEL 139 MEQ/L (136-145); TOTAL IRON BINDING CAPACITY 236 UG/DL (250-450); TRIGLYCERIDES LEVEL 84 MG/DL (<150); VITAMIN B12 LEVEL 412 PG/ML (247-911)
[2017-06-11 11:33] LABS: PRETREATED FOLATE FOR RBCFOL 11.2 NG/ML
== END ==
LOC: M SFHCPLAZ 07:45
PROVIDERS: ATTEND Family Medicine
DX: D64.9 Anemia, unspecified (principal); E78.5 Hyperlipidemia, unspecified; I50.30 Unspecified diastolic (congestive) heart failure
CPT/HCPCS: 36415; 80053; 80061; 82607; 82728; 82747; 83550; 83735; 83880; 85025; G0103

== ENCOUNTER → 2017-07-26 | Outpatient (CLI) | payer MEDICARE, OTHER ==
--- NOTE | 2017-07-26 13:19 | REP ---
CT ABDOMEN AND PELVIS WITHOUT IV CONTRAST: CT abdomen and pelvis performed without oral or IV contrast with sagittal and coronal reconstruction images performed. Comparison made with prior CT of the chest 06/01/[address] of the abdomen 05/27/2007. In the visualized lung bases there is chronic consolidative opacity peripherally in the left base, unchanged since prior exams. Adjacent pleural fluid is also unchanged. Abdominal aorta demonstrates mild scattered atherosclerotic calcifications. There is fusiform aneurysmal dilatation of the distal abdominal aortic below the level of the renal arteries. Maximum AP diameter is 4.5 cm. No periaortic soft tissue abnormalities are seen. The liver is grossly unremarkable. Patient has had a cholecystectomy. Sliver of fluid is seen lateral to the spleen, unchanged since recent CT. Adrenals are somewhat thickened without evidence of mass. Pancreas is grossly unremarkable. Kidneys demonstrate no hydronephrosis. A tiny fidel like calcification is seen in the mid left renal pelvis. There is no hydroureter bilaterally. There is no adenopathy. There is no free air. There is anterior abdominal wall mesh superiorly. No pelvic mass is seen. Urinary bladder is mildly distended and grossly unremarkable. No bowel wall thickening is seen. There are degenerative changes of the spine. IMPRESSION: Fusiform aneurysmal dilatation of the distal abdominal aorta, maximum AP diameter is 4.5 cm. This is located between the level of the renal arteries and aortic bifurcation. Chronic consolidation left lung base with adjacent pleural fluid unchanged since prior studies. Tiny fidel like calcification in the left renal pelvis without hydronephrosis. No adenopathy. Status post cholecystectomy. Signed by Kishan Torres MD 07/26/2017 05:58 P
== END ==
LOC: M RAD 10:43
PROVIDERS: ATTEND Surgery Vascular Surgery
DX: I71.4 Abdominal aortic aneurysm, without rupture (principal)

== ENCOUNTER 2017-09-28 09:10 | Emergency (ER) | payer MEDICARE, OTHER ==
[2017-09-28] MEDS: NS 1,000 ML IV (09:41)
[2017-09-28] MEDS: fentaNYL 100 MCG/2 ML INJECTION (J3010) IV ×2 (09:45→15:14)
[2017-09-28] MEDS: GASTROGRAFIN SOLUTION 30ML PO ×2 (10:13→10:45)
[2017-09-28 10:15] LABS: BASO # 0.1 10^3/uL (0.0-0.2); BASO % 0.6 % (0.0-1.0); EOS # 0.1 10^3/uL (0.0-0.50); HEMATOCRIT 40.9 % (42.0-52.0); HEMOGLOBIN 13.7 g/dl (14.0-18.0); IMMATURE GRANULOCYTE % 0.5 % (0-3.0); LYMPH % 11.5 % (24.0-44.0); MEAN CORPUSCULAR HEMOGLOBIN 30.6 pg (27.0-33.0); MEAN CORPUSCULAR HGB CONC 33.5 g/dl (32.0-36.5); MEAN CORPUSCULAR VOLUME 91.3 fl (80.0-96.0); MONO # 0.4 10^3/uL (0.0-0.8); NEUTROPHILS % 81.4 % (36.0-66.0); PLATELET COUNT, AUTOMATED 211 10^3/uL (150-450); RED BLOOD COUNT 4.48 10^6/uL (4.30-6.10); RED CELL DISTRIBUTION WIDTH 15.1 % (11.5-14.5); WHITE BLOOD COUNT 8.6 10^3/uL (4.0-10.0)
[2017-09-28 10:34] LABS: ALBUMIN 3.5 GM/DL (3.2-5.2); ALBUMIN/GLOBULIN RATIO 1.03 (1.00-1.93); ALKALINE PHOSPHATASE 75 U/L (45-117); ALT/SGPT 13 U/L (12-78); ANION GAP 5 MEQ/L (8-16); AST/SGOT 15 U/L (7-37); BILIRUBIN,DIRECT 0.1 MG/DL (0.0-0.2); BILIRUBIN,TOTAL 0.5 MG/DL (0.2-1.0); BLOOD UREA NITROGEN 14 MG/DL (7-18); CALCIUM LEVEL 8.6 MG/DL (8.8-10.2); CARBON DIOXIDE LEVEL 27 MEQ/L (21-32); CHLORIDE LEVEL 110 MEQ/L (98-107); CREATININE FOR GFR 0.82 MG/DL (0.70-1.30); GLOMERULAR FILTRATION RATE > 60.0 (>35); GLUCOSE, FASTING 108 MG/DL (70-100); LIPASE 76 U/L (73-393); POTASSIUM SERUM 4.3 MEQ/L (3.5-5.1); SODIUM LEVEL 142 MEQ/L (136-145); TOTAL PROTEIN 6.9 GM/DL (6.4-8.2)
[2017-09-28] MEDS ORDERED: ISOVUE-370 76% 100ML VIAL (Q9967) As Ordered (11:34)
[2017-09-28 13:52] LABS: KETONE, URINE AUTO RFX NEGATIVE (NEGATIVE); LEUKOCYTE ESTERASE UR AUTO RFX NEGATIVE (NEGATIVE); MUCUS, URINE RFX SMALL (NEGATIVE); NITRITE, URINE AUTO RFX NEGATIVE (NEGATIVE); RBC, URINE AUTO RFX 2 /HPF (0-3); SPECIFIC GRAVITY UR AUTO RFX 1.053 (1.002-1.035); SQUAM EPITHELIAL CELL UR AURFX 0 /HPF (0-6); WBC, URINE AUTO RFX 0 /HPF (0-3)
== END 2017-09-28 16:07 | disposition home or self-care (01) ==
LOC: M ED 09:10
DX: R10.9 Unspecified abdominal pain (principal); K57.30 Diverticulosis of large intestine without perforation or abscess without bleeding; I10 Essential (primary) hypertension; J44.9 Chronic obstructive pulmonary disease, unspecified; E78.5 Hyperlipidemia, unspecified; R60.0 Localized edema; I73.9 Peripheral vascular disease, unspecified; I71.4 Abdominal aortic aneurysm, without rupture; Z98.61 Coronary angioplasty status; F17.200 Nicotine dependence, unspecified, uncomplicated; Z90.3 Acquired absence of stomach [part of]; Z79.82 Long term (current) use of aspirin; Z88.5 Allergy status to narcotic agent; Z88.0 Allergy status to penicillin
CPT/HCPCS: Q9963

== ENCOUNTER 2019-12-01 02:02 | Inpatient (IN) | payer MEDICARE, OTHER ==
[2019-12-01] VITALS (7 sets, daily range): BP systolic 86–145; BP diastolic 51–78
[~2019-12-01] VITALS: Ht 180.3 cm; Wt 98.1 kg
[~2019-12-01 02:02] MED LIST changes: -/MOXI40TA; -ALDA25TA PO; +ASPI-527 PO; -ASPI325T28 PO; +ASPI81TA26 PO; +AVEL1TAB2; +BENZ-18 PO; -BENZ100C5 PO; -LASI20TA PO; +LASI20TA3 PO; -LASI40TA PO; +LASI40TA9 PO; -NICO21DI5 TD; +NICO21DI6 TD; -SALI0.6523; +SALI0.6528; +SPIR1TAB34 PO
[2019-12-01] MEDS ORDERED: NS 1,000 ML IV ONE (02:15)
[2019-12-01 02:27] LABS: VENOUS BASE EXCESS -7.4 (-2.0-2.0); VENOUS HCO3 17.8 MEQ/L (23.0-27.0); VENOUS O2 SATURATION 82.2 % (60.0-80.0); VENOUS PARTIAL PRESSURE CO2 35.2 mmHg (38.0-50.0); VENOUS PARTIAL PRESSURE O2 53.3 mmHg (30.0-50.0); VENOUS PH 7.322 UNITS (7.330-7.430); VENOUS STANDARD HCO3 18.2 MEQ/L; VENOUS TOTAL CO2 18.9 MEQ/L (24.0-28.0)
[2019-12-01 02:28] LABS: HEMATOCRIT 34.2 % (42.0-52.0); HEMOGLOBIN 11.7 g/dl (13.5-17.5); MEAN CORPUSCULAR HEMOGLOBIN 30.5 pg (27.0-33.0); MEAN CORPUSCULAR HGB CONC 34.2 g/dl (32.0-36.5); MEAN CORPUSCULAR VOLUME 89.1 fl (80.0-96.0); RED BLOOD COUNT 3.84 10^6/uL (4.30-6.10); WHITE BLOOD COUNT 13.4 10^3/uL (4.0-10.0)
[2019-12-01] MEDS: COMBIVENT RESPIMAT 100-20MCG INHALER 4GM INH PRN ×3 (02:34→03:11)
[2019-12-01 02:39] LABS: PLATELET COUNT, AUTOMATED 80 10^3/uL (150-450)
[2019-12-01] MEDS ORDERED: NAPR220C PO (02:40)
[2019-12-01 02:44] LABS: BASOPHILS 1 % (0-1); LYMPHOCYTES 2 % (16-44); METAMYELOCYTES 1 % (0-0); NEUTROPHILS 91 % (28-66)
[2019-12-01 02:45] LABS: ANISOCYTOSIS 1+
[2019-12-01 02:46] LABS: DOHLE BODIES 1+; HYPOCHROMASIA 1+; PLATELET ESTIMATE NORMAL (NORMAL); TOXIC GRANULATION 1+; TOXIC VACUOLATION 1+
[2019-12-01 02:48] LABS: BURR CELLS 1+; TEAR DROP CELLS 1+
--- NOTE | 2019-12-01 02:55 | REP ---
Clinical: Cough and dyspnea. Comparison: 05/31/2017. Findings: Examination is limited by portable technique, underpenetration, and positioning. Acute versus chronic bibasilar fibroatelectatic changes (left greater than right) are suggested and require clinical/physical correlation and confirmation with auscultation. No definite effusion. No pneumothorax. The cardiac silhouette is within normal limits. The skeletal structures demonstrate stable age-related changes. Impression: Bibasilar acute versus chronic fibroatelectatic changes (left greater than right). Electronically Signed by Param Chakraborty MD 12/01/2019 02:46 A
[2019-12-01 02:56] LABS: BILIRUBIN,DIRECT 0.8 MG/DL (0.0-0.2); BILIRUBIN,TOTAL 1.3 MG/DL (0.2-1.0); CALCIUM LEVEL 7.8 MG/DL (8.8-10.2); CK-MB VALUE MASS 1.4 NG/ML (<3.6); CREATININE FOR GFR 1.39 MG/DL (0.70-1.30); GLOMERULAR FILTRATION RATE 51.8 (>35); MB/CK RELATIVE INDEX 0.66 (< OR =4); POTASSIUM SERUM 2.9 MEQ/L (3.5-5.1); TOTAL PROTEIN 5.7 GM/DL (6.4-8.2); TROPONIN I 0.13 NG/ML (< 0.10)
[2019-12-01] MEDS: NOREPINEPHRINE BITARTRATE 8 MG in D5W 492 ML IV SCH ×2 (03:00→03:29)
[2019-12-01] MEDS ORDERED: POTASSIUM CHLORIDE 10 MEQ SR TABLET PO ONE ×3 (03:00→14:15)
[2019-12-01] MEDS ORDERED: NS 1,010 ML in IV 1 EA IV ONE (03:00)
[2019-12-01] MEDS ORDERED: IMIPENEM/CILASTATIN 500 MG in D5W MINI-BAG PLUS 100 ML IV ONE (03:00)
[2019-12-01 03:17] LABS: MAGNESIUM LEVEL 1.2 MG/DL (1.8-2.4)
[2019-12-01] MEDS ORDERED: MAGNESIUM OXIDE 400 MG TAB (MAG-OX) PO ONE (03:30)
[2019-12-01] MEDS ORDERED: MAG SULF 1GM/100ML (MAG RUN) 1 GM in IV 1 EA IV ONE ×2 (03:30→08:15)
[2019-12-01] MEDS ORDERED: VANCOMYCIN HCL 750 MG, VIAL MATE ADAPTER 1 EACH in D5W 250 ML IV SCH (03:45)
[2019-12-01] MEDS ORDERED: MOM 30ML SUSPENSION UDC PO PRN (04:45)
[2019-12-01] MEDS ORDERED: KCL 40MEQ in NS 1000ML 1,000 ML IV SCH (04:45)
--- NOTE | 2019-12-01 05:05 | REPVR ---
PROCEDURE INFORMATION: Exam: CT Chest Without Contrast Exam date and time: 12/01/2019 4:28 AM Age: 84 years old Clinical indication: Condition or disease; Lung condition and disease; Respiratory failure; Status not specified; Additional info: Resp failure, septic TECHNIQUE: Imaging protocol: Computed tomography of the chest without contrast. Radiation optimization: All CT scans at this facility use at least one of these dose optimization techniques: automated exposure control; mA and/or kV adjustment per patient size (includes targeted exams where dose is matched to clinical indication); or iterative reconstruction. COMPARISON: CT Chest with contrast 06/01/2017 5:33 PM FINDINGS: Limitations: Examination is limited by motion artifact. Tracheobronchial tree: Bronchial mucous plugging in the left lower lobe. Lungs: Consolidations in the lingula and left lower lobe. Pleural space: Unremarkable. No pneumothorax. No pleural effusion. Heart: Unremarkable. No cardiomegaly. No pericardial effusion. Coronary arteries: Moderate coronary artery calcification. Aorta: Unremarkable. No aortic aneurysm. Lymph nodes: Unremarkable. No enlarged lymph nodes. Diaphragm: Elevated right hemidiaphragm. Intraperitoneal space: Moderate ascites. Bones/joints: Mild degenerative spine. No acute fracture. Soft tissues: Unremarkable. IMPRESSION: 1. Consolidations in the lingula and left lower lobe. Consistent with pneumonia. 2. Moderate ascites. See CT abdomen pelvis r the eport. Electronically signed by: Nakia Booth On 12/01/2019 05:04:35 AM
--- NOTE | 2019-12-01 05:21 | REPVR ---
PROCEDURE INFORMATION: Exam: CT Abdomen And Pelvis Without Contrast Exam date and time: 12/01/2019 4:28 AM Age: 84 years old Clinical indication: Sepsis; Additional info: Septic, HX aaa TECHNIQUE: Imaging protocol: Computed tomography of the abdomen and pelvis without contrast. Radiation optimization: All CT scans at this facility use at least one of these dose optimization techniques: automated exposure control; mA and/or kV adjustment per patient size (includes targeted exams where dose is matched to clinical indication); or iterative reconstruction. COMPARISON: CT ABD PELVIS W/O CONTRAST 07/26/2017 11:02 AM FINDINGS: Limitations: Examination is limited by motion artifact. Examination is limited without IV contrast. Lungs: See CT chest report. Liver: Normal. No mass. Gallbladder and bile ducts: Status post cholecystectomy. Status post cholecystectomy. No biliary ductal dilatation. Pancreas: Normal. No ductal dilation. Spleen: Normal. No splenomegaly. Adrenals: Normal. No mass. Kidneys and ureters: Punctate nonobstructive stone in the lower pole of left kidney. No hydronephrosis bilaterally. Stomach and bowel: Limited evaluation of the bowel. No abnormal bowel dilatation. Negative for colonic diverticulitis. Right colon appears thickened but evaluation is limited. Appendix: The appendix is not seen. However, there is no evidence of appendicitis. Intraperitoneal space: Moderate ascites. No free air. Vasculature: Fusiform infrarenal abdominal aortic aneurysm measuring 4.8 x 4.6 cm. Moderate calcified atherosclerotic disease. Lymph nodes: Unremarkable. No enlarged lymph nodes. Bladder: Unremarkable as visualized. Reproductive: Prostate is normal in size. Bones/joints: Degenerative changes in the hips. Severe degenerative spine. No acute fracture. Soft tissues: There is dependent subcutaneous edema. Status post ventral abdominal hernia repair with mesh. IMPRESSION: 1. Right colon appears thickened but evaluation is limited. Possible colitis. 2. Moderate ascites. Unknown etiology. 3. Fusiform infrarenal abdominal aortic aneurysm. No change from prior. Electronically signed by: Nakia Booth On 12/01/2019 05:21:25 AM
[2019-12-01] MEDS ORDERED: VANCOMYCIN HCL 1,000 MG, VIAL MATE ADAPTER 1 EACH in D5W 250 ML IV SCH ×2 (05:30→08:00)
[2019-12-01] MEDS ORDERED: VANCOMYCIN HCL 1,000 MG, VIAL MATE ADAPTER 1 EACH in D5W 250 ML IV ONE (05:45)
[2019-12-01] MEDS ORDERED: NOREPINEPHRINE BITARTRATE 8 MG in D5W 492 ML IV SCH (05:45)
[2019-12-01] MEDS ORDERED: PREVNAR 13 VACCINE SYRINGE (CPT CODE:90670) IM SCH (06:00)
[2019-12-01 06:27] LABS: HEMATOCRIT 32.6 % (42.0-52.0); HEMOGLOBIN 11.3 g/dl (13.5-17.5); MEAN CORPUSCULAR HEMOGLOBIN 30.9 pg (27.0-33.0); MEAN CORPUSCULAR HGB CONC 34.7 g/dl (32.0-36.5); MEAN CORPUSCULAR VOLUME 89.1 fl (80.0-96.0); RED BLOOD COUNT 3.66 10^6/uL (4.30-6.10)
[2019-12-01 06:33] LABS: PLATELET COUNT, AUTOMATED 89 10^3/uL (150-450)
[2019-12-01 06:49] LABS: LYMPHOCYTES 4 % (16-44); METAMYELOCYTES 2 % (0-0); MONOCYTES 1 % (0-5); NEUTROPHILS 79 % (28-66)
--- NOTE | 2019-12-01 06:49 | REPVR ---
PROCEDURE INFORMATION: Exam: US Duplex Lower Extremity Veins Exam date and time: 12/01/2019 6:33 AM Age: 84 years old Clinical indication: Edema, localized; Lower extremity, bilateral; Additional info: Edema, dyspnea TECHNIQUE: Imaging protocol: Real-time duplex ultrasound of the Lower Extremities with 2-D nicole scale, color Doppler flow and spectral waveform analysis with image documentation. Complete exam focused on the bilateral lower extremity veins. COMPARISON: No relevant prior studies available. FINDINGS: Right deep veins: Unremarkable. The common femoral, femoral, proximal profunda femoral and popliteal veins are patent without thrombus. Normal Doppler waveforms. Normal compressibility and/or augmentation response. Right superficial veins: Saphenofemoral junction is patent without thrombus. Left deep veins: Unremarkable. The common femoral, femoral, proximal profunda femoral and popliteal veins are patent without thrombus. Normal Doppler waveforms. Normal compressibility and/or augmentation response. Left superficial veins: Saphenofemoral junction is patent without thrombus. Soft tissues: Avascular popliteal cyst on the right measuring 1.7 x 1.2 x 1.6 cm. IMPRESSION: 1. No evidence of DVT. 2. Avascular popliteal cyst on the right. Electronically signed by: Nakia Booth On 12/01/2019 06:49:44 AM
[2019-12-01 06:50] LABS: ANISOCYTOSIS 1+; PLATELET ESTIMATE DECREASED (NORMAL)
--- NOTE | 2019-12-01 06:52 | HPEPDOC ---
General Date of Admission Dec 01, 2019 at 04:20 Date of Service: Dec 01, 2019 Attending Physician: DORA MUELLER MD Chief Complaint The patient is a 84-year-old male admitted with a reason for visit of Afib W Rvr/Sepsis. History of Present Illness HPI: This is a 84-year-old male limited historian due to poor medical insight & mild dementia, with extensive medical conditions per his chart, noncompliant with medical care & stopped all prescribed meds years ago, and has not seen a doctor in 2 years. He is now brought in by EMS due to gradually worsening shortness of breath with dry cough over the past 2 weeks. He endorses orthopnea, PND, inc reased lower extremity edema over this time as well. Also notes 15lb unintentional weight loss in past 1 year. He was brought in on a nonrebreather and hypotensive, requiring initiation of Levophed after not much improvement with 2L normal saline. He was ultimately weaned down on oxygen to 2 L nasal cannula. Was also found to be in what appears to be a new onset of A. fib in RVR with heart rate in the 140s to 50s. He was found to have a WBC of 13, platelets 80, metabolic acidosis on VBG, lactic acid 7.9, troponin 0.13, BNP 3223, potassium 2.9 and magnesium 1.2. He will be admitted directly to ICU for further workup of his sepsis. PMH: Pericardial effusion S/P pericardial window Cervical spinal stenosis, degenerative disc disease Chronic diastolic heart failure Hypertension DM2 with diabetic retinopathy Peptic ulcer disease COPD, not on supplemental oxygen Mild dementia CKD III baseline Cr 1.1-1.2 AAA without rupture Past Surgical Hx: Pericardial window with pericardiostomy with partial distal sternectomy with xiphoidectomy 2013 Partial gastric resection in 1962 for PUD Hernia repair Cholecystectomy Family Hx: Father at age 107 from natural cause Mother at 90 from CAD Social Hx: Prison active smoker 1ppd since age 12 Lives alone at home Worked on the [employer] ROS: Constitutional: Denies night sweats. Admits fevers & chills & unintentional wt loss over the year HEENT: Denies headache, dysphagia, visual/auditory disturbances Skin: Denies any rashes or lesions Pulmonary: Admits dyspnea at rest & exertion, dry cough. Denies hemoptysis Cardiac: Denies chest pain, palpitations. Admits orthopnea, PND, edema, lightheadedness GI: Denies nausea, vomiting, abdominal pain, diarrhea, constipation, melena, hematochezia MSK: Denies new pains or weakness or joint swelling Neurologic: Denies new numbness/tingling PHYSICAL: General exam: A&O x3, NAD, mild distress HEENT: NCAT, EOMI, neck supple, dry mucous membranes Cardiac: irregular rhythm, tachycardic, muffled heart sounds, difficult to assess further due to loud breathing & tachycardia. 2+ edema b/l LE Respiratory: bibasilar crackles, clear in upper vila, accessory muscle use with abdominal breathing, tachypnic, speaking in short full sentences, coughing intermittently through exam without any phlegm production Abdomen: irregular contour from prior surgeries, soft, NT, mildly distended, hypoactive bowel sounds, benign Extremity: 2+ radial pulses, no calf tenderness Skin: [place], warm, dry, no visible rash Msk: strength 5/5 x4, normal tone Neuro: normal speech, no focal deficits, poor medical insight, follows commands LABORATORY DATA, MICROBIOLOGY: Please see below. ASSESSMENT AND PLAN: This is a 84-year-old male brought in by EMS for respiratory failure requiring nonrebreather. On admission was found to be septic, requiring levophed after aggressive fluid hydration. Septic shock likely 2/2 LLL PNA - Lactate 7.9, WBC 13.4, tachypneic, tachycardic, hypotensive requiring 2L NS and Levophed started in ER - Patient reports worsening shortness of breath over the past 1 week with subjective fever and chills, cough, edema, PND, orthopnea, lower extremity edema - Likely multifactorial, remaining workup pending - Chest CT reveals consolidations in the lingula and left lower lobe consistent with pneumonia - CT abdomen and pelvis reveals thickening of right colon possible colitis - S/P imipenem/cilastatin X1 in ER - Will start on empiric Vanc and meropenem given his penicillin allergy; MRSA screen pending - Respiratory panel and COVID testing negative - Blood cultures and procal pending - Levophed was started in ER on a peripheral IV, if he continues to require pressors, will need central line placement - Although hypervolemic on exam and received 2 L IV fluids in ER, continue conservative standing fluids at 100cc/hr for sepsis treatment and goal of w eaning off pressors - Titrate off Levophed as tolerated, maintain MAP greater than 65. Closely josé miguel tor vol status - Pulm/Crit Dr. Zuñiga consulted, appreciate input Left lower lobe community-acquired pneumonia - See above Possible colitis - Patient has no abdominal or GI complaints - Malignancy remains on differential especially given patients noncompliance and clinical picture - Antibiotics as above Acute hypoxic respiratory failure - Came in on NRB, titrated down to 2 L nasal cannula - Likely multifactorial: Decompensated CHF, pneumonia, sepsis - Has a history of pericardial effusion s/p pericardial window. Muffled heart sounds currently on exam. Stat echo is pending - Also has multiple comorbidities increasing his risk of thromboembolic events. Unable to obtain CTA to rule out PE due to renal function. Stat Doppler of bilateral lower extremities ordered - Titrate off O2 as tolerated. No oxygen at baseline Troponin leak - No cardiac complaints or ST-T wave changes on EKG - Likely demand ischemia 2/2 is critically ill state with multiple acute active issues as noted - Trend cardiac markers and monitor telemetry Decompensated diastolic CHF - Saturating relatively well on NC2L - As per echo 05/2017 with EF 65% and mild pulmonary hypertension - 2+ bilateral lower extremity edema, JVD, bibasilar rales, BNP 3000+ orthopnea and PND per patient - Unable to diuresis given his hypotensive state - Strict Is and Os, daily weights, elevate head of bed, close vol status - Stat echo ordered as above New onset A. fib with RVR - No prior documented history of A. fib - Heart rate and in 140s to 150s on admission likely 2/2 acute septic state - Hold off anticoagulation currently for possible procedures during this hospitalization and platelets are 80 - Will hold off on heart rate control meds at this point given that his heart rate is already improving with sepsis treatment - Echo and A. fib workup pending Moderate ascites, possible new cirrhosis - Transaminitis with low albumin 2.0 & low platelets, moderate ascites noted on imaging - Source unclear. Hepatitis panel and alcohol/drug screen pending - PT/INR pending - Consider diagnostic paracentesis when stable. Cannot rule out malignancy GRACIELA site on CKD3 - Baseline creatinine 1.1-1.2, 1.39 on admission - Likely prerenal versus hypervolemic state - Hold nephrotoxins and monitor for improvement as blood pressure improves Hypomagnesemia, hypokalemia - Supplemented in ER, by mouth and IV - Continue IV fluids with supplementation Thrombocytopenia - Source unclear. Prior labs dating back from 1999 through 2017 reveal normal platelet count - May be dilutional. Monitor for bleed. Peripheral smear pending For the remainder of his chronic medical conditions as listed above, patient is not compliant with any medications. Will require medication regimen on discharge. DVT prophylaxis: mechanical CODE STATUS: discussed in depth with pt, requesting DNR/DNI. He would like son & nephew to make decisions on his behalf if needed. DISPOSITION: admit to ICU with remaining w/u pending. Central line placement if he continues to require pressors. Pulm/Crit consulted to be evaluated by Dr. Zuñiga. Home Medications Scheduled PRN Naproxen Sodium (Naproxen Sodium) 220 Mg Capsule, 220 MG PO BID PRN for PAIN, (Reported) Allergies Coded Allergies: Penicillins (Verified Allergy, Intermediate, RASH, 12/01/19) morphine (Verified Adverse Reaction, Mild, N/V, 12/01/19) A-FIB/CHADSVASC A-FIB History Current/History of A-Fib/PAF?: Yes Current PO Anticoag Therapy: No Age/Risk Factor Scoring CHADSVASC: CHADSVASC Response (Comments) Value Age Risk Factor Age >/= 75 years old 2 Gender Risk Factor Male 0 Hx of CHF Yes 1 Hx of HTN Yes 1 Hx of Stroke/TIA/or VTE No 0 Hx of Diabetes Yes 1 Hx of Vascular Disease No 0 Total 5 Treatment Treatment ordered: NONE Reason Anticoagulant not given: Other Other reason anticoagulant not: low platlets Vital Signs Vital Signs Date Time Temp Pulse Resp B/P (MAP) Pulse Ox O2 Delivery O2 Flow Rate FiO2 12/01/19 05:45 101/56 12/01/19 05:20 2.0 12/01/19 05:20 97.2 106 22 96 Nasal Cannula Laboratory Data Labs 24H Laboratory Tests 2 12/01/19 02:06: Neutrophils (%) (Auto) , Nucleated Red Blood Cells % (auto) 0.0, Neutrophils 91H, Band Neutrophils 5, Lymphocytes (Manual) 2L, Basophils (Manual) 1, Metamyelocytes 1H, Hypochromasia 1+, Anisocytosis 1+, Tear Drop Cells 1+, Toxic Granulation 1+, Dohle Bodies 1+, [place] Cells 1+, Toxic Vacuolation 1+, Platelet Estimate NORMAL, Immature Platelet Fraction 3.9, Blood Gas Bicarbonate Standard 18.2, Venous Blood pH 7.322L, Venous Blood Partial Pressure CO2 35.2L, Venous Blood Partial Pressure O2 53.3H, Venous Blood Total Carbon Dioxide 18.9L, Venous Blood HCO3 17.8L, Venous Blood Oxygen Saturation 82.2H, Venous Blood Base Excess -7.4L, Anion Gap 12, Glomerular Filtration Rate 51.8, Lactic Acid Level 7.9*H, Calcium Level 7.8L, Magnesium Level 1.2L, Total Bilirubin 1.3H, Direct Bilirubin 0.8H, Aspartate Amino Transf (AST/SGOT) 72H, Alanine Aminotransferase (ALT/SGPT) 35, Alkaline Phosphatase 187H, Total Creatine Kinase 212, Creatine Kinase MB 1.4, Creatine Kinase MB Relative Index 0.66, Troponin I 0.13H, UG-Ckc-Z-Type Natriuretic Peptide 3223H, Total Protein 5.7L, Albumin 2.0L, Albumin/Globulin Ratio 0.54L, Coronavirus (COVID-19)(PCR) NEGATIVE 12/01/19 06:07: Neutrophils (%) (Auto) , Nucleated Red Blood Cells % (auto) 0.0, Differential Slide Review Report, Peripheral Blood Smear Path Consult PERIPHERAL SMEAR CBC/BMP Laboratory Tests 12/01/19 02:06 12/01/19 06:07 Microbiology Microbiology 12/01/19 Respiratory Virus Panel (PCR) (COLE) - Final, Complete 12/01/19 Blood Culture, Received Pending 12/01/19 Blood Culture, Received Pending Plan / VTE VTE Prophylaxis Ordered?: Yes GME ATTESTATION GME ATTESTATION My faculty preceptor for this patient encounter was physically present during the encounter and was fully available. All aspects of the patient interview, examination, medical decision making process, and medical care plan development were reviewed and approved by the faculty preceptor. The faculty preceptor is aware and concurs with the plan as stated in the body of this note and will attest to such by his/her cosignature. ATTENDING NOTE I, Dora Mueller, have independently examined this patient and performed my own physical exam, as well as reviewed the documentation and edited where necessary. I have discussed in detail with the resident / student the findings and plan of treatment as documented by the resident / student and edited their note. I agree with their findings and treatment plan and have edited their documentation. I will continue to follow the patient during this hospital stay. RAMBO WATKINS DO Dec 01, 2019 06:52 DORA MUELLER MD Dec 02, 2019 04:58
[2019-12-01 06:54] LABS: ABG HCO3 16.2 MEQ/L (22.0-26.0); ABG O2 SATURATION 97.4 % (95.0-99.0); ABG PARTIAL PRESSURE CO2 29.5 mmHg (35.0-45.0); ABG PARTIAL PRESSURE O2 98.8 mmHg (75.0-100.0); ABG TOTAL CO2 17.1 MEQ/L (23.0-31.0); ABG pH (ARTERIAL) 7.358 UNITS (7.350-7.450)
[2019-12-01 07:25] LABS: INR 1.52
[2019-12-01 07:47] LABS: ALBUMIN 1.9 GM/DL (3.2-5.2); ALT/SGPT 49 U/L (12-78); BILIRUBIN,TOTAL 1.9 MG/DL (0.2-1.0); BLOOD UREA NITROGEN 15 MG/DL (7-18); CALCIUM LEVEL 7.4 MG/DL (8.8-10.2); CARBON DIOXIDE LEVEL 19 MEQ/L (21-32); CHLORIDE LEVEL 109 MEQ/L (98-107); CK-MB VALUE MASS 3.7 NG/ML (<3.6); CPK CREATINE PHOSPHOKINASE 344 U/L (39-308); CREATININE FOR GFR 1.45 MG/DL (0.70-1.30); ETHYL ALCOHOL (ETHANOL) < 0.003 % (0.000-0.010); GLOMERULAR FILTRATION RATE 49.4 (>35); GLUCOSE, FASTING 132 MG/DL (70-100); MAGNESIUM LEVEL 1.5 MG/DL (1.8-2.4); MB/CK RELATIVE INDEX 1.08 (< OR =4); POTASSIUM SERUM 2.8 MEQ/L (3.5-5.1); SODIUM LEVEL 141 MEQ/L (136-145); TOTAL PROTEIN 5.5 GM/DL (6.4-8.2); TROPONIN I 0.33 NG/ML (< 0.10)
[2019-12-01 08:28] LABS: PHOSPHORUS LEVEL 1.7 MG/DL (2.5-4.9)
[2019-12-01] MEDS: DOXYCYCLINE HYCLATE 100 MG in D5W MINI-BAG PLUS 100 ML IV SCH ×2 (08:34→21:27)
[2019-12-01] MEDS ORDERED: FUROSEMIDE 40MG/4ML VIAL (J1940) IV SCH (09:00)
[2019-12-01] MEDS ORDERED: LIDOCAINE 2% 5ML JELLY UROJET TOP ONE (09:00)
[2019-12-01] MEDS ORDERED: KCL 10MEQ/100ML SWI (KRUN) 10 MEQ in IV 1 EA IV SCH (09:00)
[2019-12-01] MEDS: THIAMINE 100 MG TAB PO SCH ×2 (09:15→21:37)
[2019-12-01] MEDS: MULTIVITAMINS/MINERALS THERAP 1 TAB PO SCH (09:16)
[2019-12-01] MEDS: FOLIC ACID 1 MG TAB PO SCH (09:16)
[2019-12-01] MEDS: KCL 10MEQ/100ML SWI (KRUN) 10 MEQ in IV 1 EA IV SCH ×2 (09:16→10:21)
[2019-12-01] MEDS: PANTOPRAZOLE 40MG VIAL (C9113 PER 1) IV SCH (09:40)
[2019-12-01] MEDS: MEROPENEM INJ 1 GM in IV 1 EA IV SCH ×2 (09:40→22:34)
[2019-12-01 10:17] LABS: AMPHETAMINES LEVEL URINE NEGATIVE (NEGATIVE); BARBITURATES URINE NEGATIVE (NEGATIVE); BENZODIAZEPINES URINE NEGATIVE (NEGATIVE); CANNABINOIDS URINE NEGATIVE (NEGATIVE); COCAINE METABOLITE URINE NEGATIVE (NEGATIVE); METHADONE URINE NEGATIVE (NEGATIVE); OPIATES URINE NEGATIVE (NEGATIVE); PHENCYCLIDINE URINE NEGATIVE (NEGATIVE)
[2019-12-01 10:56] LABS: HEPATITIS B SURFACE ANTIGEN NEGATIVE (NEGATIVE)
[2019-12-01 11:22] LABS: HEPATITIS C VIRUS ABY INDEX 0.1 INDEX (<0.8)
[2019-12-01 11:23] LABS: HEPATITIS B CORE ANTIBODY IGM NEGATIVE (NEGATIVE)
[2019-12-01 13:00] LABS: ALBUMIN 1.9 GM/DL (3.2-5.2); BILIRUBIN,TOTAL 1.3 MG/DL (0.2-1.0); CALCIUM LEVEL 7.5 MG/DL (8.8-10.2); CREATININE FOR GFR 1.49 MG/DL (0.70-1.30); GLOMERULAR FILTRATION RATE 47.8 (>35); POTASSIUM SERUM 3.3 MEQ/L (3.5-5.1); TOTAL PROTEIN 5.5 GM/DL (6.4-8.2)
[2019-12-01 13:03] LABS: CK-MB VALUE MASS 5.5 NG/ML (<3.6); MB/CK RELATIVE INDEX 1.56 (< OR =4); TROPONIN I 0.81 NG/ML (< 0.10)
[2019-12-01 13:22] LABS: MAGNESIUM LEVEL 1.9 MG/DL (1.8-2.4)
--- NOTE | 2019-12-01 13:55 | IPNPDOC ---
Text Note Date of Service The patient was seen on 12/01/19. NOTE Subjective: Patient continues to have shortness of breath and palpitations. P atient denies any pain. Objective: VITAL SIGNS: Please see below. GENERAL: Obese male HEENT: NCAT, anicteric sclera, LIDIA NECK: supple, plus JVD CARDIOVASCULAR EXAMINATION: NS1S2, irregularly irregular RESPIRATORY EXAMINATION: Diminished lung sounds bilaterally, rales at the base ABDOMINAL EXAMINATION: Moderately distended, nontender, no rebound EXTREMITIES: no cyanosis, clubbing, edema SKIN: warm, no rashes. NEUROLOGICAL EXAMINATION: AAO x 3, no motor/sensory deficits, follows commands Patient is 84 years old male with past medical history of diastolic CHF, hypertension, type 2 diabetes, COPD, dementia presented hospital with increased shortness of breath. Patient was found to have sepsis due to left lower lobe pneumonia. Also patient developed atrial fibrillation with rapid ventricular rate and acute on chronic CHF exacerbation. Septic shock Secondary to LLL pneumonia Patient had hypotension, leukocytosis, lactic acidosis on admission Patient received treatment with pressure support, blood pressure was stabilized Await blood culture Continue antibiotics meropenem and doxycycline DC vancomycin, patient is MRSA negative Left lobe pneumonia CT chest showed consolidations in the lingula and left lower lobe. Consistent with pneumonia. Incentive spirometry Continue antibiotics Acute hypoxemic respiratory failure Secondary to community acquired pneumonia superimposed with acute CHF Continue oxygen Doppler ultrasound of lower extremities negative Elevated troponin No acute ischemic changes on EKG, patient denied chest pain Most likely secondary to demand ischemia Acute diastolic CHF Patient has elevated BNP, plus JVD We will initiate diuresis on patient after stabilization of blood pressure Echo New-onset of atrial fibrillation with rapid ventricular rate Most likely secondary to CHF exacerbation and sepsis Heart rate is under control Patient is in the sinus rhythm I will start therapeutic dose of Lovenox Moderate ascites There is concern for cirrhosis, patient has transaminitis with thrombocytopenia Abdomen nontender on palpation We'll proceed with diagnostic paracentesis after initial stabilization Acute kidney injury Secondary to volume contraction secondary to sepsis Continue to monitor Electrolyte imbalance Replaced Thrombocytopenia Most likely secondary to cirrhosis or Trevino or underlying malignancy or infection Continue to monitor No any signs of bleeding VS,Fishbone, I+O VS, Fishbone, I+O Laboratory Tests 12/01/19 02:06 12/01/19 06:07 Vital Signs Date Time Temp Pulse Resp B/P (MAP) Pulse Ox O2 Delivery O2 Flow Rate FiO2 12/01/19 12:00 2.0 12/01/19 12:00 97.6 92 18 145/78 (100) 96 Room Air I&O- Last 24 Hours up to 6 AM 12/01/19 06:00 Intake Total 2110 ml Balance 2110 ml LISSY PADRON DO Dec 01, 2019 13:55
[2019-12-01] MEDS ORDERED: HEPARIN SOD (PORCINE) 5000UNITS/ML VIAL (J1644 PER 1000UNITS) SQ SCH (14:00)
--- NOTE | 2019-12-01 14:04 | ECGEPIP ---
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
[2019-12-01] MEDS ORDERED: E-Z-PAQUE 96% w/w SUSP 176GM BTL As Ordered ONE (16:00)
[2019-12-01] MEDS ORDERED: VARIBAR NECTAR 40% w/v 240ML SUSP BTL As Ordered ONE (16:00)
[2019-12-01] MEDS ORDERED: VARIBAR PUDDING 40% w/v 230ML TUBE As Ordered ONE (16:00)
[2019-12-01] MEDS: ENOXAPARIN 80MG/0.8ML SYRINGE (J1650 PER 10MG) SC SCH (17:03)
--- NOTE | 2019-12-01 17:07 | CR ---
DATE OF CONSULTATION: 12/01/2019 CRITICAL CARE CONSULTATION NOTE HISTORY OF PRESENT ILLNESS: Mr. Tamayo is an 84-year-old male with an extensive medical history, as well as medical noncompliance, who originally presented to the [facility] Emergency Department with a complaint of weakness and shortness of breath. He stated that he was at home and has been gradually developing shortness of breath and a dry cough for approximately 2 weeks, as well as difficulty lying flat and increased swelling in his lower extremities. He stated that yesterday he was walking about and got short of breath and weak. He was able to call emergency medical services (EMS), and at the time he was brought to the emergency room where he was found to be hypotensive and hypoxic. He was placed on a nonrebreather and received fluid resuscitation, including three liters sodium chloride. Due to persistent hypotension, the patient was started on norepinephrine peripherally. He was found to be in atrial fibrillation with rapid ventricular response (RVR). He was started on antibiotics empirically for possible sepsis. Additionally, he had received a chest x-ray, which demonstrated bibasilar and fibroatelectatic changes. Chest CT was performed as well, which demonstrated consolidation in the lingula of the left lower lobe consistent with possible pneumonia, as well as moderate ascites. This was followed up with an abdominal CT, which also demonstrated moderate ascites, as well as some possible colitis. The patient was transferred to the intensive care unit where he was continued on peripheral Levophed. Pulmonary critical care medicine was consulted due to the patient's persistent hypotension. PAST MEDICAL HISTORY: 1. History of pericardial effusion and status post pericardial window, and partial distal sternectomy and xiphoidectomy in 2013. 2. Cervical spinal stenosis and degenerative disc disease. 3. Chronic diastolic congestive heart failure. Last echo in 2017 with a left ventricular ejection fraction 65% and mild pulmonary hypertension. 4. Hypertension. 5. 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 6. History of peptic ulcer disease. 7. History of chronic obstructive pulmonary disease. 8. History of mild dementia. 9. Chronic kidney disease stage III with a baseline creatinine of 1.1 to 1.2. 10. History of abdominal aortic aneurysm without rupture. PAST SURGICAL HISTORY: 1. Pericardial window with pericardiostomy and partial distal sternectomy and xiphoidectomy in 2013. 2. Partial gastric resection in 1962 for peptic ulcer disease. 3. Hernia repair. 4. Cholecystectomy. FAMILY HISTORY: Patient's father had lived to be 107 and of natural causes. His mother at the age of 90 from coronary artery disease. He does not have any brothers or sisters. SOCIAL HISTORY: Patient is a long-term smoker. He smokes approximately one pack per day since he was 12 years old. 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 He is an alcoholic. He states that he was a heavy drinker; however, he states that he stopped drinking heavily about a week ago and now only drinks occasionally, however, this is unlikely to be the case. REVIEW OF SYSTEMS: CONSTITUTIONAL: Patient denies any night sweats. He does admit to some fevers and chills. He denies any unintentional weight loss or weight gain. HEENT: Patient denies any headache. He does admit to dysphagia and some choking with coughing when drinking his water. CARDIOVASCULAR: Patient denies any chest pain, palpitations or pressure. PULMONARY: Patient admits to shortness of breath at rest and with exertion. He admits to a dry cough; however, he states that recently he has had increased sputum production. He denies any hemoptysis. GASTROINTESTINAL: The patient denies any nausea, vomiting, abdominal pain, diarrhea, constipation. GENITOURINARY: Patient denies any dysuria. He denies any increased frequency or urgency. MUSCULOSKELETAL: Patient admits to overall feeling of weakness but denies any joint swelling or joint pain. NEUROLOGIC: Patient denies any changes in his gait from baseline. He denies any changes in speech. He denies any numbness or tingling. SKIN: Patient denies any rashes or lesions. PSYCHIATRIC: Patient denies any depression or anxiety. PHYSICAL EXAMINATION: Vital Signs: Temperature 97.6, pulse 92, respiratory rate 18, blood pressure 145/78, pulse oximetry 96% on room air. HEENT: Atraumatic, normocephalic. Eyes are not icteric. Trachea is midline. There is no palpable cervical, axillary or supraclavicular lymphadenopathy. His mucous membranes appear somewhat dry. CARDIOVASCULAR: Patient has an irregular rhythm with a normal rate. Somewhat distant heart sounds. RESPIRATORY: Patient has bibasilar crackles, otherwise good respiratory effort. Symmetric chest expansion. No conversational dyspnea. There is no wheezes or rhonchi. ABDOMEN: Patient has soft nondistended abdomen. There is a scar from his pericardial window and pericardiostomy. He has an incisional hernia present as well. There is no tenderness. No rebound tenderness or guarding. There are normoactive bowel sounds throughout. EXTREMITIES: Patient has 2+ pitting edema in bilateral lower extremities. There is full and equal pulses bilateral upper and lower extremities. There is no calf tenderness. SKIN: Patient's skin is warm, dry. No visual rashes present. NEUROLOGICAL: No focal neurological deficits. LABORATORY DATA: Hematology: White blood cells 28.0, hemoglobin 11.3, hematocrit 32.6, platelet count 89. Chemistries: Sodium 141, potassium 2.8, chloride 109, carbon dioxide 19, BUN 15, creatinine 1.45, glucose 132, lactic acid 5.6, calcium 7.4, phosphorus 1.7, magnesium 1.5, total bilirubin 1.9, AST 121, ALT 49, alkaline phosphatase 165, total creatinine kinase 344, troponin 0.33, C-reactive protein 15.9, total protein 5.5, albumin 1.9, TSH 1.940. Serology: Hepatitis B surface antigen negative. Hepatitis B core IgM antibody negative. Hepatitis C antibody negative. Strep pneumoniae antigen currently pending. Ethyl alcohol less than 0.003. Urine toxicology negative. Urine lytes: Urine random osmolality 518, urine random creatinine 278, urine random sodium 28, urine random urea 593. Coagulation: PT 18, INR 1.52. Arterial blood gas - pH 7.35, pCO2 of 29.5, pO2 of 98.8. Microbiology: Urine culture pending. Blood cultures times two pending. Respiratory panel negative. IMAGING: Chest x-ray demonstrating bibasilar acute versus chronic fibroatelectatic changes on the left greater than right. Chest CT demonstrating consolidation in the lingula and the left lower lobe consistent with pneumonia. Moderate ascites demonstrated. Abdominal/pelvis CT demonstrating right colon appearing thickened consistent with possible colitis. Moderate ascites, as stated previously. Fusiform infrarenal abdominal aortic aneurysm, not changed from prior examination. Vascular ultrasound demonstrating no evidence of deep vein thrombosis (DVT) and avascular popliteal cyst on the right. INPATIENT MEDICATIONS: - heparin 5000 units every 8 hours subcutaneous - meropenem 1 gram every 12 hours IV day 1 - doxycycline 100 mg every 12 hours IV day 1 - thiamine 100 mg twice a day by mouth - folic acid 1 mg daily by mouth - multivitamins one tablet daily by mouth - Protonix 40 mg daily IV - Tylenol 650 mg every 4 hours as needed by mouth - Milk of Magnesia 30 mL daily as needed by mouth ASSESSMENT AND PLAN: Mr. Tamayo is an 84-year-old male who presented to the [facility] Emergency department with hypotension, and was found to be in atrial fibrillation with rapid ventricular response (RVR), likely secondary to septic shock secondary to a left lower lobe pneumonia versus spontaneous bacterial peritonitis given his ascites. Patient is currently status post three liters of volume resuscitation and peripheral Levophed. 1. Septic shock secondary to left lower lobe pneumonia versus spontaneous bacterial peritonitis (SBP). Patient was previously on peripheral Levophed; this has been titrated down. He is currently off. He has received three liters of sodium chloride for volume resuscitation. Regarding his left lower lobe pneumonia, it appears that back in 2013, he had developed pericardial effusion and left pleural effusion around this same area that caused compressive atelectasis. Since that time, in 2013, he had a chest CT as well, which also demonstrated an area in the left lower lobe, which is likely round atelectasis. Today his imaging is somewhat consistent with his previous imaging demonstrating round atelectasis as well. Cannot completely rule out pneumonia; however, this region is likely chronic rather than acute. Currently he has responded well to fluids and pressors. His current blood pressure is 145/78 off of Levophed. His blood cultures are currently pending. His respiratory panel has been negative. He is continued on meropenem 1 gram IV every 12 hours as well as doxycycline. He received vancomycin in the emergency department (ED), as well as imipenem. Will continue his antibiotics currently and monitor for improvement. 2. Acute hypoxic respiratory failure. When patient presented to the emergency department, he was on a nonrebreather. His acute hypoxic respiratory failure is likely multifactorial. He has diastolic congestive heart failure. He may have been decompensated when he presented. He also has sepsis and possible pneumonia; however, he has presented with atrial fibrillation with RVR, which has likely contributed to his shortness of breath. STAT echo was obtained; the results are currently pending. The patient is currently on room air, and his acute hypoxic episode seems to have resolved. 3. Decompensated Diastolic Congestive Heart Failure vs Decompensated Liver Cirrhosis. Patients hypotension is likely multifactorial to a combination of sepsis, decompensated congestive heart failure and decompensated liver cirrhosis. There is no CT evidence of cirrhosis with exception to ascites. He will likely benefit from lasix however will hold off for now as the patient appear to be in septic shock and has just come off of pressors. 4. Elevated troponin. Patient presented with elevated troponin, which is likely secondary demand ischemia from his acute hypotensive episode. Will continue to trend. 5. Ascites and thrombocytopenia and transaminitis. Patient has transaminitis with thrombocytopenia as well as ascites. It is likely secondary to liver etiology. He is an alcoholic. His AST is elevated at 121, ALT is not elevated. Patient does endorse drinking. He has been started on a multivitamin, folate and thiamine. Will continue. Regarding his ascites, his sepsis could be secondary to SBP. A paracentesis was not performed when he arrived in the ER before antibiotics were started. He is currently on meropenem and doxycycline. Will continue for now. Once the patient's hypotensive episode resolves, he will likely benefit from diuresis, which will help his ascites. 6. New onset atrial fibrillation. Patient presented with atrial fibrillation and RVR. He is currently rate controlled, although still in atrial fibrillation. This likely contributed to his hypotension as well as has decreased his cardiac output even further. An echocardiogram is currently pending. 7. Acute kidney injury, likely secondary to hypotension. Patient had presented with acute kidney injury. He has chronic kidney disease with a baseline creatinine of about 1 to 1.1. Currently creatinine is 1.45. Urine electrolytes obtained demonstrating likely prerenal seen at 0.1%. At the current time, patient has received IV fluid hydration. Will continue to monitor. 8. Hypokalemia, hypomagnesemia. Patient has electrolyte abnormalities, potassium, possibly secondary to metabolic acidosis from his sepsis with elevated lactic acid of 5.6. However, he is also hypomagnesemic. He has received IV supplementation of magnesium. He has also received potassium supplementation as well. Repeat BMP from around noon today. Additionally the patient's phosphorus is low. Will supplement that. 9. Alcoholism. As stated previously, patient is an alcoholic. Will continue with multivitamin, folic acid and thiamine. 10. Gastroesophageal reflux disease. Patient states he has some acid reflux. He is currently on Protonix 40 mg IV. 11. Dysphagia. Patient has complained of some dysphagia. Stated that it has gone on for some time, and he has some difficulty when he drinks liquids. He states it makes him cough. He is surely at risk for aspiration. Given his pneumonia, he may have episodes of aspiration pneumonia as well. Speech therapy has been ordered for evaluation of his dysphagia. Gastrointestinal (GI) prophylaxis: Patient is currently on Protonix 40 mg IV. Deep vein thrombosis (DVT) prophylaxis: Patient is currently on heparin 5000 units every 8 hours subcutaneous. Will hold for platelet count of less than 50,000. Code status DNR/DNI Total critical care time spent not including procedures approx 1 hr and 55 mins IAiyana, conducted an independent examination and history of the patient and agree with the plan as detailed above by the resident and discussed during rounds. NAFISA
--- NOTE | 2019-12-01 19:33 | REP ---
COOKIE SWALLOW The procedure was performed under the direct supervision of Dr. Torres. The procedure was performed with Candida Cotter from speech pathology present. 5 ml aliquots of honey, pudding and nectar consistency barium was administered. With honey and nectar consistency barium there is laryngeal penetration. A detailed report of this examination will be provided by speech pathology. 0.8 minutes of fluoroscopy time was utilized for this procedure. Electronically Signed by ELIOT Le 12/01/2019 04:23 P Electronically Signed by Kishan Torres MD 12/01/2019 07:24 P
--- NOTE | 2019-12-01 22:14 | ECHO ---
DATE OF PROCEDURE: 12/01/2019 DATE OF : 1935 AGE: 84 PATIENT LOCATION: Room 2238 REFERRING PROVIDER: Dr. Dora Mueller REASON FOR THE STUDY: Shortness of breath. 2D MEASUREMENTS; IVS: 1.2 cm LV: 5.3 cm LVPW: 1.2 cm LA: 3.5 cm Aorta: 3.6 cm RV: 3.6 cm IVC: 2.1 cm DOPPLER MEASUREMENTS: Peak velocity across the aortic valve: 1.1 meters per second Peak velocity across the LVOT: 0.62 meters per second Mitral E: 0.85, Mitral A: 0.58 with a ratio of 1.5 2D COMMENTS: 1. Normal left ventricular size, wall thickness, but with a mildly depressed global left ventricular systolic function. There appears to be mild global hypokinesis in limited view with an estimated left ventricular ejection fraction (LVEF) of 40-45%. 2. Subjectively, the left atrium appeared to be mildly enlarged. The right atrium and the right ventricle also appeared to be mildly enlarged in limited views but right ventricular free wall seemed to be bc. 3. Normal aortic root. 4. A small pericardial effusion was noted, no evidence of cardiac tamponade. 5. Mildly calcified aortic valve with normal leaflet excursion. Mildly calcified mitral annulus with normal anterior mitral valve leaflet motion. Normal tricuspid valve. The pulmonic valve appeared to be normal in limited views. The proximal pulmonary artery branches were not well visualized. 6. The inferior vena cava was dilated, central venous pressure is probably elevated. DOPPLER: It detects trace aortic regurgitation, mild tricuspid regurgitation. The calculated pulmonary artery systolic pressure varies between 30-40 mmHg. The peak velocity across the tricuspid valve was 2.4 meters per second. Abnormal relaxation pattern was noted across the mitral valve annulus consistent with features of grade 2 left ventricular diastolic dysfunction. IMPRESSION: 1. Technically limited study due to poor acoustic window. 2. Probably mildly depressed global left ventricular systolic function with mild global hypokinesis. There are some features of grade 2 left ventricular diastolic dysfunction, left ventricular end-diastolic pressure might be elevated. 3. Aortic valve sclerosis without stenosis or aortic regurgitation. 4. Mitral annulus calcification with trace mitral regurgitation. Subjectively, the left atrium appeared to be enlarged. 5. Mild tricuspid regurgitation with probably mild pulmonary hypertension. 6. A small pericardial effusion was noted, no evidence of cardiac tamponade. [facility]
[2019-12-02] VITALS (7 sets, daily range): BP systolic 110–125; BP diastolic 56–89
[2019-12-02] MEDS: ENOXAPARIN 80MG/0.8ML SYRINGE (J1650 PER 10MG) SC SCH ×2 (03:57→15:29)
[2019-12-02 04:38] LABS: HEMATOCRIT 31.5 % (42.0-52.0); MEAN CORPUSCULAR HEMOGLOBIN 30.4 pg (27.0-33.0); MEAN CORPUSCULAR HGB CONC 34.9 g/dl (32.0-36.5); PLATELET COUNT, AUTOMATED 85 10^3/uL (150-450); RED BLOOD COUNT 3.62 10^6/uL (4.30-6.10)
[2019-12-02 04:50] LABS: INR 1.38; PROTHROMBIN TIME 16.7 SECONDS (11.8-14.0)
[2019-12-02] MEDS ORDERED: VANCOMYCIN HCL 1,000 MG, VIAL MATE ADAPTER 1 EACH in D5W 250 ML IV ONE (05:00)
[2019-12-02 05:10] LABS: ALBUMIN 1.8 GM/DL (3.2-5.2); BILIRUBIN,TOTAL 0.7 MG/DL (0.2-1.0); CALCIUM LEVEL 7.5 MG/DL (8.8-10.2); CREATININE FOR GFR 1.38 MG/DL (0.70-1.30); GLOMERULAR FILTRATION RATE 52.3 (>35); POTASSIUM SERUM 4.4 MEQ/L (3.5-5.1); TOTAL PROTEIN 5.5 GM/DL (6.4-8.2)
[2019-12-02 05:13] LABS: LYMPHOCYTES 4 % (16-44); MONOCYTES 7 % (0-5); NEUTROPHILS 89 % (28-66)
[2019-12-02 05:14] LABS: PLATELET ESTIMATE DECREASED (NORMAL)
[2019-12-02 05:16] LABS: ANISOCYTOSIS 1+; POIKILOCYTOSIS 1+
[2019-12-02 05:38] LABS: C REACTIVE PROTEIN QUANTITATIV 17.3 MG/DL (0.00-0.30)
[2019-12-02 05:59] LABS: ABG HCO3 21.1 MEQ/L (22.0-26.0); ABG O2 SATURATION 99.5 % (95.0-99.0); ABG PARTIAL PRESSURE CO2 38.6 mmHg (35.0-45.0); ABG PARTIAL PRESSURE O2 179.1 mmHg (75.0-100.0); ABG STANDARD HCO3 21.2 MEQ/L (22.0-26.0); ABG TOTAL CO2 22.3 MEQ/L (23.0-31.0); ABG pH (ARTERIAL) 7.356 UNITS (7.350-7.450)
[2019-12-02 06:07] LABS: CK-MB VALUE MASS 4.1 NG/ML (<3.6); MB/CK RELATIVE INDEX 1.94 (< OR =4); TROPONIN I 0.58 NG/ML (< 0.10)
[2019-12-02] MEDS ORDERED: FUROSEMIDE 40MG/4ML VIAL (J1940) IV ONE (06:30)
[2019-12-02] MEDS: guaiFENesin DM LIQ 10ML UD PO SCH ×3 (08:52→17:41)
[2019-12-02] MEDS: FUROSEMIDE 40MG/4ML VIAL (J1940) IV SCH ×2 (09:08→16:41)
[2019-12-02] MEDS: FOLIC ACID 1 MG TAB PO SCH (09:08)
[2019-12-02] MEDS: PANTOPRAZOLE 40MG VIAL (C9113 PER 1) IV SCH (09:08)
[2019-12-02] MEDS: DOXYCYCLINE HYCLATE 100 MG in D5W MINI-BAG PLUS 100 ML IV SCH ×2 (09:08→20:31)
[2019-12-02] MEDS: MULTIVITAMINS/MINERALS THERAP 1 TAB PO SCH (09:09)
[2019-12-02] MEDS: THIAMINE 100 MG TAB PO SCH ×2 (09:09→20:30)
--- NOTE | 2019-12-02 10:14 | REP ---
CHEST, SINGLE VIEW: Single view of the chest is performed. COMPARISON: 12/01/2019. Left basilar infiltrate is unchanged. Right lung remains clear. Heart and mediastinum are unchanged. IMPRESSION: Stable exam. Electronically Signed by Kishan Torres MD 12/02/2019 10:52 A
[2019-12-02] MEDS: MEROPENEM INJ 1 GM in IV 1 EA IV SCH ×2 (11:29→22:52)
[2019-12-02 12:23] LABS: BASO # 0.1 10^3/uL (0.0-0.2); BASO % 0.3 % (0.0-1.0); EOS % 0.1 % (0.0-3.0); HEMATOCRIT 34.8 % (42.0-52.0); HEMOGLOBIN 12.5 g/dl (13.5-17.5); LYMPH # 0.8 10^3/uL (1.5-5.0); LYMPH % 2.3 % (24.0-44.0); MEAN CORPUSCULAR HEMOGLOBIN 30.6 pg (27.0-33.0); MEAN CORPUSCULAR HGB CONC 35.9 g/dl (32.0-36.5); MEAN CORPUSCULAR VOLUME 85.3 fl (80.0-96.0); MONO # 2.2 10^3/uL (0.0-0.8); MONO % 6.3 % (0.0-5.0); NEUTROPHILS # 30.1 10^3/uL (1.5-8.5); NEUTROPHILS % 86.4 % (36.0-66.0); PLATELET COUNT, AUTOMATED 104 10^3/uL (150-450); RED BLOOD COUNT 4.08 10^6/uL (4.30-6.10)
[2019-12-02 12:25] LABS: WHITE BLOOD COUNT 34.8 10^3/uL (4.0-10.0)
[2019-12-02 13:03] LABS: BILIRUBIN,TOTAL 0.7 MG/DL (0.2-1.0); CALCIUM LEVEL 7.9 MG/DL (8.8-10.2); CREATININE FOR GFR 1.39 MG/DL (0.70-1.30); GLOMERULAR FILTRATION RATE 51.8 (>35); POTASSIUM SERUM 4.2 MEQ/L (3.5-5.1); TOTAL PROTEIN 5.9 GM/DL (6.4-8.2)
[2019-12-02 13:19] LABS: MAGNESIUM LEVEL 1.7 MG/DL (1.8-2.4)
--- NOTE | 2019-12-02 13:22 | ECGEPIP ---
[facility] Test Date: 2019-12-02 Pat Name: ERASTO BRO Department: Room: [place] [address] Gender: Male Carpenter Inspector: : 1935 Requested By: TALIA VIDAL Order Number: [id number] Reading MD: Neftali Watkins Measurements Intervals Bradley Rate: 75 P: 43 UT: 198 QRS: 123 QRSD: 97 T: 38 QT: 386 QTc: 433 Interpretive Statements SINUS RHYTHM INDETERMINATE AXIS LOW QRS VOLTAGE throughout ANTEROSEPTAL MYOCARDIAL INFARCTION, OF INDETERMINATE AGE Rate decreased and rhythm normalized from tracing done 12-01-19 Electronically Signed on 12-02-2019 13:22:24 EDT by Neftali Watkins
--- NOTE | 2019-12-02 13:40 | IPNPDOC ---
Text Note Date of Service The patient was seen on 12/02/19. NOTE Subjective: Patient complains of generalized weakness. No any acute events ov ernight. He had 1 large bowel movement in the morning Objective: VITAL SIGNS: Please see below. GENERAL: Obese male HEENT: NCAT, anicteric sclera, LIDIA NECK: supple, plus JVD CARDIOVASCULAR EXAMINATION: NS1S2, irregularly irregular RESPIRATORY EXAMINATION: Diminished lung sounds bilaterally, rales at the base ABDOMINAL EXAMINATION: Moderately distended, nontender, no rebound EXTREMITIES: no cyanosis, clubbing, edema SKIN: warm, no rashes. NEUROLOGICAL EXAMINATION: AAO x 3, no motor/sensory deficits, follows commands Patient is 84 years old male with past medical history of diastolic CHF, h ypertension, type 2 diabetes, COPD, dementia presented hospital with increased shortness of breath. Patient was found to have sepsis due to left lower lobe pneumonia. Also patient developed atrial fibrillation with rapid ventricular rate and acute on chronic CHF exacerbation. Septic shock Secondary to LLL pneumonia superimposed with possible aspiration. There is also concern for SBP, given moderate ascites however his abdomen soft, nontender on palpation Patient had hypotension, leukocytosis, lactic acidosis on admission Patient received treatment with pressure support, blood pressure was stabilized 2 sets of blood culture shows gram-positive rods Continue antibiotics meropenem and doxycycline. We added metronidazole IV DC vancomycin, patient is MRSA negative Left lobe pneumonia CT chest showed consolidations in the lingula and left lower lobe. Consistent with pneumonia. Incentive spirometry Continue antibiotics Acute hypoxemic respiratory failure Secondary to community acquired pneumonia superimposed with acute CHF Continue oxygen Doppler ultrasound of lower extremities negative Elevated troponin No acute ischemic changes on EKG, patient denied chest pain Most likely secondary to demand ischemia Acute diastolic CHF Patient has elevated BNP, plus JVD We initiated diuresis on patient, blood pressure stable Echo New-onset of atrial fibrillation with rapid ventricular rate Most likely secondary to CHF exacerbation and sepsis Heart rate is under control Patient is in the sinus rhythm I will start therapeutic dose of Lovenox Moderate ascites There is concern for cirrhosis, patient has transaminitis with thrombocytopenia Abdomen nontender on palpation We'll proceed with diagnostic paracentesis after initial stabilization Acute kidney injury Secondary to volume contraction secondary to sepsis Continue to monitor Electrolyte imbalance Replaced Thrombocytopenia Most likely secondary to cirrhosis or Trevino or underlying malignancy or infection Continue to monitor No any signs of bleeding VS,Fishbone, I+O VS, Fishbone, I+O Laboratory Tests 12/02/19 04:24 12/02/19 12:02 Vital Signs Date Time Temp Pulse Resp B/P (MAP) Pulse Ox O2 Delivery O2 Flow Rate FiO2 12/02/19 12:10 97.8 89 18 118/89 (99) 93 Room Air 12/02/19 04:10 2.0 I&O- Last 24 Hours up to 6 AM 12/02/19 06:00 Intake Total 1490 ml Output Total 340 ml Balance 1150 ml LISSY PADRON DO Dec 02, 2019 13:40
--- NOTE | 2019-12-02 13:47 | CCN ---
DATE: 12/02/2019 The patient was seen and examined this morning during bedside rounds. Overnight, the patient had episodes of increased shortness of breath and some respiratory distress. He was satting well on just nasal cannula oxygen supplementation. However given the respiratory distress, he was placed on a Venti mask for oxygenation. This morning, he does continue to report some shortness of breath as well as continued cough occasionally productive of mucus. He has not had any fevers or chills and he continues to have lower extremity edema. The patient did have a Morales catheter placed yesterday and initially did not have much urine output, however, this morning appears to have had some increased urine output in his Morales bag. He does continue have some occasional abdominal discomfort, but denies having any nausea or vomiting. He did have a bowel movement overnight which was not reported as diarrhea. The patient did also have a speech and swallow examination and was noted to have some evidence of aspiration and so he was changed to a pureed and nectar-thick diet. The patient's blood pressure has remained stable off of pressors. PHYSICAL EXAMINATION: Temperature 97.7, pulse 75, respirations 20, blood pressure 112/56, O2 sat 97% on 2 liters nasal cannula, 91-92% on room air. Ins 3.6 liters, out yesterday 230 mL, with an additional this morning noted 1 liter in the Morales bag. General: The patient is sitting in bed and appears to be in some slight respiratory distress, using some occasional accessory muscles for respiration. He is able to talk in short sentences, however. HEENT: Normocephalic, atraumatic. Moist mucous membranes. Neck is supple and trachea is midline. No palpable cervical adenopathy. Cardiovascular: Somewhat distant heart sounds with irregular rhythm and normal rate. Respiratory: There are decreased breath sounds at the left base with a few crackles at the bases. No significant wheezing or rhonchi noted. Abdomen is soft, mildly distended. There is some mild tenderness in the upper quadrants bilaterally. There is an incisional hernia present. There is a scar from previous pericardiostomy. Lower Extremities: There is +2 pitting edema in the bilateral lower extremities. There is no calf tenderness bilaterally. LABORATORY DATA: WBC 33, hemoglobin 11.0, platelets 85. Chemistry: Sodium is 139, potassium 4.4, chloride is 110, bicarb 21, BUN 22, creatinine is 1.38, glucose 119, lactic acid trended down to 1.4, AST 91, ALT 35, alkaline phosphatase 155. Troponin had peaked at 0.91, trending down to 0.58. Albumin 1.8. INR is 1.38. ABG: pH 7.356, pCO2 of 38.6 and pO2 of 179.1. IMAGING STUDIES: Chest x-ray showed persistent left lower lobe atelectasis/consolidation. MICROBIOLOGY: Blood cultures showed gram positive rods. ASSESSMENT AND PLAN: Mr. Tamayo is an 84-year-old male with a past medical history of diastolic congestive heart failure (CHF), hypertension, diabetes, peptic ulcer disease, chronic obstructive pulmonary disease (COPD), chronic kidney disease (CKD), abdominal aortic aneurysm, previous history of pericardial effusion and pericardial window, who has been noncompliant with medications and medical followup and who presented now with complaints of weakness, increased cough and shortness of breath. On admission, the patient was found to be hypotensive thought to be secondary to septic shock as he also had evidence of leukocytosis on admission. The patient's sepsis was thought to be secondary to possible pneumonia initially, although on review of his CT much of the finding in the left lower lobe is chronic appearing and likely due a component of some chronic rounded atelectasis. The patient also had ascites and increased lower extremity edema with concern for possible decompensated heart failure versus a component of some chronic liver disease given his history of alcoholism. The patient's sepsis may also have been due to subacute bacterial peritonitis (SBP) or also from possible colitis which was seen on his initial CT abdomen and pelvis. The patient was given IV fluid boluses and initially had required Levophed for his blood pressure. He was able to be quickly weaned off of the Levophed and his blood pressures have remained stable since yesterday morning without pressors. 1. Sepsis with septic shock possibly secondary to pneumonia versus SBP versus colitis. - The patient was started on broad-spectrum antibiotics with imipenem and vancomycin as well as doxycycline for atypical coverage. His methicillin-resistant Staphylococcus aureus (MRSA) screen was negative and his vancomycin was discontinued and he is continued on imipenem and doxycycline. - The patient has had increased leukocytosis today and his blood cultures preliminarily came back positive for gram-positive rods. This may potentially be a contaminant from skin marianela. However, will followup with his repeat blood cultures today. Clinically, although he did have increased leukocytosis, he appears improved in terms of his lactic acidosis and blood pressure. He has remained off of pressors since yesterday morning. - Given some evidence of colitis on his CT of abdomen, if the patient were to have diarrhea, would check for Clostridium difficile and start empiric treatment - The patient's procalcitonin was significantly elevated at 8 on admission. Will continue to trend procalcitonin to construction helper in de-escalation of his antibiotics. If his procalcitonin is increasing, then would indicate that he needs adjustment in terms of his antibiotic coverage. 2. Acute hypoxemic respiratory failure in the setting of his shock as well as possible decompensated CHF with new onset atrial fibrillation and rapid ventricular response (RVR). The patient also has a history of COPD and was currently smoking prior to his admission. He likely has a component of chronic mild hypoxia at baseline. He has been able to be weaned off of nasal cannula oxygen supplementation. He does intermittently desaturate however and so will continue with nasal cannula as needed to maintain an O2 sat above 90%. - Will start the patient on DuoNeb q.6 h given his history of COPD and smoking and also given his increased shortness of breath. 3. Decompensated CHF with echo showing evidence of mildly reduced ejection fraction (EF) as well as a dilated left atrium, right atrium and right ventricle (RV), with grade 2 diastolic dysfunction and a dilated inferior vena cava (IVC) indicative of elevated central venous pressures. His RV systolic pressure is also mildly elevated at 30-40 mmHg. There is a small pericardial effusion noted, but no evidence of pericardial tamponade. - As the patient's lactic acidosis and blood pressures have improved, will start him on diuretics with Lasix 40 mg IV twice a day and monitor his ins and outs. - The patient had a Morales placed yesterday to monitor his urine output and he appears to be having increased urine output. - The patient had some elevated troponins, likely secondary to demand ischemia which appear to trending down. - The patient also with new onset atrial fibrillation with RVR. He currently appears to be rate controlled. He has a history of noncompliance in the past and so anticoagulation would likely be difficult for him on an outpatient basis. 4. Ascites with evidence of some transaminitis and thrombocytopenia. The patient has thrombocytopenia which may be in the setting of his infection, but may also be chronic secondary to a potential liver etiology. The patient could have abnormal LFTs if he has a history of chronic right heart failure, although he does also have a significant alcohol abuse history and so some of this may also be due to chronic liver disease as well. The patient did not have a paracentesis performed when he arrived in the emergency department (ED) and he has already been on antibiotics. He may have had possible SBP initially contributing to his sepsis. The patient will need diuresis with Lasix and now possibly Aldactone as well given his ascites. 5. Acute kidney injury (GRACIELA), likely prerenal. The patient's urine electrolytes are consistent with a prerenal etiology. With IV fluid hydration and pressors, his renal function has improved. - Will continue with diuresis and will monitor his renal function. - Will monitor his electrolytes and replete as needed. He did have hypokalemia and hypomagnesemia on admission. - Given his history of alcohol abuse, will continue with multivitamin, folic acid and thiamine supplementation. 6. Gastroesophageal reflux disease with history of dysphagia. The patient's barium swallow did show evidence of aspiration. He was ordered for modified diet with pureed and nectar thickened liquids. Will continue with the proton pump inhibitor (PPI) as well for reflux. Deep vein thrombosis (DVT) prophylaxis. Heparin. Will hold if platelets count less than 50,000. CODE STATUS: DO NOT RESUSCITATE/DO NOT INTUBATE (DNR/DNI). Total critical care time spent not including procedures approximately 40 minutes. MTDD
[2019-12-02] MEDS: metroNIDAZOLE 500 MG in IV 1 EA IV SCH ×2 (13:55→22:03)
[2019-12-02] MEDS: IPRATROPIUM 0.5MG/ALBUTEROL 2.5MG INH SOL UD 3ML (DUONEB)(J7620) NEB SCH ×2 (14:07→19:41)
[2019-12-02] MEDS ORDERED: MAG SULF 1GM/100ML (MAG RUN) 1 GM in IV 1 EA IV ONE (15:00)
[2019-12-02] MEDS ORDERED: ONDANSETRON 4MG/2ML VIAL IV PRN (15:00)
[2019-12-02 16:20] LABS: CALCIUM LEVEL 8.2 MG/DL (8.8-10.2); CREATININE FOR GFR 1.4 MG/DL (0.70-1.30); GLOMERULAR FILTRATION RATE 51.4 (>35); POTASSIUM SERUM 4.3 MEQ/L (3.5-5.1)
[2019-12-03] VITALS (8 sets, daily range): BP systolic 98–143; BP diastolic 52–79
[2019-12-03] MEDS: guaiFENesin DM LIQ 10ML UD PO SCH ×5 (00:08→23:34)
[2019-12-03] MEDS: IPRATROPIUM 0.5MG/ALBUTEROL 2.5MG INH SOL UD 3ML (DUONEB)(J7620) NEB SCH ×4 (02:00→19:35)
[2019-12-03] MEDS: ENOXAPARIN 80MG/0.8ML SYRINGE (J1650 PER 10MG) SC SCH ×2 (03:54→14:37)
[2019-12-03 04:36] LABS: BASO # 0.1 10^3/uL (0.0-0.2); BASO % 0.3 % (0.0-1.0); EOS # 0.1 10^3/uL (0.0-0.5); EOS % 0.2 % (0.0-3.0); HEMATOCRIT 34.2 % (42.0-52.0); HEMOGLOBIN 12.2 g/dl (13.5-17.5); LYMPH # 1.1 10^3/uL (1.5-5.0); LYMPH % 4.2 % (24.0-44.0); MEAN CORPUSCULAR HEMOGLOBIN 31.3 pg (27.0-33.0); MEAN CORPUSCULAR HGB CONC 35.7 g/dl (32.0-36.5); MEAN CORPUSCULAR VOLUME 87.7 fl (80.0-96.0); MONO # 1.8 10^3/uL (0.0-0.8); MONO % 7.1 % (0.0-5.0); NEUTROPHILS # 22.4 10^3/uL (1.5-8.5); NEUTROPHILS % 86.4 % (36.0-66.0); PLATELET COUNT, AUTOMATED 101 10^3/uL (150-450); WHITE BLOOD COUNT 25.9 10^3/uL (4.0-10.0)
[2019-12-03 04:57] LABS: ALBUMIN 1.8 GM/DL (3.2-5.2); BILIRUBIN,TOTAL 0.7 MG/DL (0.2-1.0); C REACTIVE PROTEIN QUANTITATIV 10.9 MG/DL (0.00-0.30); CALCIUM LEVEL 8.1 MG/DL (8.8-10.2); CREATININE FOR GFR 1.3 MG/DL (0.70-1.30); MAGNESIUM LEVEL 1.8 MG/DL (1.8-2.4); POTASSIUM SERUM 3.6 MEQ/L (3.5-5.1); TOTAL PROTEIN 5.9 GM/DL (6.4-8.2)
[2019-12-03] MEDS: metroNIDAZOLE 500 MG in IV 1 EA IV SCH ×3 (06:22→22:28)
[2019-12-03] MEDS: DOXYCYCLINE HYCLATE 100 MG in D5W MINI-BAG PLUS 100 ML IV SCH ×2 (09:47→20:23)
[2019-12-03] MEDS: PANTOPRAZOLE 40MG VIAL (C9113 PER 1) IV SCH (09:47)
[2019-12-03] MEDS: FOLIC ACID 1 MG TAB PO SCH (09:48)
[2019-12-03] MEDS: FUROSEMIDE 20 MG TAB PO SCH (09:48)
[2019-12-03] MEDS: MULTIVITAMINS/MINERALS THERAP 1 TAB PO SCH (10:04)
[2019-12-03] MEDS: THIAMINE 100 MG TAB PO SCH ×2 (10:04→20:23)
--- NOTE | 2019-12-03 10:42 | IPNPDOC ---
Text Note Date of Service The patient was seen on 12/03/19. NOTE Subjective: No any acute events overnight. Patient denied to eat puree diet. He requested regular food. I explained to him all negative consequences of this decision but patient insisted that he wants a regular diet Objective: VITAL SIGNS: Please see below. GENERAL: Obese male HEENT: NCAT, anicteric sclera, LIDIA NECK: supple, plus JVD CARDIOVASCULAR EXAMINATION: NS1S2, irregularly irregular RESPIRATORY EXAMINATION: Diminished lung sounds bilaterally, rales at the base ABDOMINAL EXAMINATION: Moderately distended, nontender, no rebound EXTREMITIES: no cyanosis, clubbing, edema SKIN: warm, no rashes. NEUROLOGICAL EXAMINATION: AAO x 3, no motor/sensory deficits, follows commands Patient is 84 years old male with past medical history of diastolic CHF, hypertension, type 2 diabetes, COPD, dementia presented hospital with increased shortness of breath. Patient was found to have sepsis due to left lower lobe pneumonia. Also patient developed atrial fibrillation with rapid ventricular rate and acute on chronic CHF exacerbation. Septic shock Secondary to LLL pneumonia superimposed with possible aspiration. There is also concern for SBP, given moderate ascites however his abdomen soft, nontender on palpation Patient had hypotension, leukocytosis, lactic acidosis on admission Patient received treatment with pressure support, blood pressure was stabilized 2 sets of blood culture shows gram-positive rods Continue antibiotics meropenem and doxycycline. We added metronidazole IV. On 12/03/19 leukocytosis improved DC vancomycin, patient is MRSA negative Left lobe pneumonia CT chest showed consolidations in the lingula and left lower lobe. Consistent with pneumonia. Incentive spirometry Continue antibiotics Acute hypoxemic respiratory failure Secondary to community acquired pneumonia superimposed with acute CHF Continue oxygen Doppler ultrasound of lower extremities negative Elevated troponin Troponin trended down No acute ischemic changes on EKG, patient denied chest pain Most likely secondary to demand ischemia Acute diastolic CHF Patient has elevated BNP, plus JVD We initiated diuresis on patient, blood pressure stable Echo showed mildly depressed global left ventricular systolic function with mild global hypokinesis. There are some features of grade 2 left ventricular diastolic dysfunction, left ventricular end-diastolic pressure might be elevated. New-onset of atrial fibrillation with rapid ventricular rate Most likely secondary to CHF exacerbation and sepsis Heart rate is under control Patient is in the sinus rhythm I started therapeutic dose of Lovenox Moderate ascites There is concern for cirrhosis, patient has transaminitis with thrombocytopenia Abdomen nontender on palpation We'll proceed with diagnostic paracentesis after initial stabilization Lasix, Aldactone Acute kidney injury Secondary to volume contraction secondary to sepsis Continue to monitor Electrolyte imbalance Replaced Thrombocytopenia Most likely secondary to cirrhosis or Trevino or underlying malignancy or infection Continue to monitor No any signs of bleeding VS,Fishbone, I+O VS, Fishbone, I+O Laboratory Tests 12/02/19 12:02 12/02/19 15:27 12/03/19 04:19 Vital Signs Date Time Temp Pulse Resp B/P (MAP) Pulse Ox O2 Delivery O2 Flow Rate FiO2 12/03/19 08:31 76 113/65 12/03/19 08:31 20 93 Room Air 12/03/19 04:00 97.4 12/02/19 20:45 15.0 50 I&O- Last 24 Hours up to 6 AM 12/03/19 06:00 Intake Total 645 ml Output Total 4790 ml Balance -4145 ml LISSY PADRON DO Dec 03, 2019 10:42
[2019-12-03] MEDS: SPIRONOLACTONE 25 MG TAB PO SCH (11:03)
[2019-12-03] MEDS: MEROPENEM INJ 1 GM in IV 1 EA IV SCH ×2 (11:05→21:42)
--- NOTE | 2019-12-03 11:25 | CCN ---
DATE: 12/03/2019 The patient was seen, examined this morning during bedside rounds. This morning the patient appears to be more comfortable in terms of his breathing. He is on room air oxygen. He does continue to have some difficulty, he states, in taking a deep breath and he does continue to have occasional cough productive of mucus although he states it is improving slightly. He has not had any fevers or chills. He has had improvement in his lower extremity edema. The patient does continue to note when he drinks water that he starts coughing and choking and he states everything "starts coming up". He was recommended for pureed nectar- thick diet. However, the patient refuses the pureed diet and wants a regular diet. We did discuss that he has evidence of aspiration and there is concern for continued aspiration and possible aspiration pneumonia with a regular diet which he understands. The patient further has refused placement of feeding tube based on his goals of care. PHYSICAL EXAMINATION: Temperature 97.4, pulse 70, respirations 20, blood pressure 143/65, O2 sat 93% on room air. Input 645, output 4 liters, net negative 3.5 liters. GENERAL: Patient is sitting in bed and appears to be somewhat improved in terms of respiratory distress. He is able to speak in short sentences and does occasionally use some accessory muscles for respiration. HEENT: Normocephalic, atraumatic. Moist mucous membranes. NECK: Neck is supple. Trachea is midline. No palpable cervical adenopathy. CARDIOVASCULAR: Somewhat distant heart sounds with irregular rhythm. Normal rate. RESPIRATORY: There are decreased breath sounds at the left base with crackles at the bases. There is no significant wheezing or rhonchi noted. ABDOMEN: Abdomen is soft, mildly distended. There is some tenderness diffusely in the abdomen. There is an incisional hernia present and scar from previous pericardiostomy LOWER EXTREMITIES: There is improvement in the pitting edema in the bilateral lower extremities. There is trace edema present currently. There is no calf tenderness bilaterally. LABS: WBC 25.9, hemoglobin 12.2, platelets 101. Chemistry: Sodium is 137, potassium 3.6, chloride is 107, bicarb 25, BUN 24, creatinine 1.30, glucose is 130, mag is 1.8, CRP trending down to 10.9, albumin is 1.8. Microbiology: Repeat blood cultures are no growth to date. Blood cultures on admission: Prelim shows gram-positive rods. ASSESSMENT/PLAN: Mr. Tamayo is an 84 old male with a history of diastolic congestive heart failure (CHF), hypertension, diabetes, peptic ulcer disease, chronic obstructive pulmonary disease (COPD), chronic kidney disease (CKD), abdominal aortic aneurysm, previous history pericardial effusion status post window with a history of noncompliance with medications and medical followup who presented initially with complaints of weakness, increased shortness of breath and cough. The patient was hypotensive on admission thought to be secondary to septic shock as he also had evidence of significant leukocytosis. The patient's sepsis was thought to be secondary to possible pneumonia initially although on review of his CT imaging much of the findings in the left lower lobe is chronic appearing likely due to a component of some chronic rounded atelectasis. He did also have ascites and his sepsis may also have been due to spontaneous bacterial peritonitis (SBP). His CT also showed possible colitis and this may also been contributing to his sepsis. The patient was also found to have increased lower extremity edema and ascites consistent with decompensated heart failure. He does also have a history of alcoholism and so there may also be a component of some chronic liver disease as well. The patient was treated with broad-spectrum antibiotics and IV fluids. He was also initially on Levophed for blood pressure support however he was able to be quickly weaned off of Levophed and his blood pressures has since remained stable without pressors. 1. Sepsis with septic shock possibly secondary to pneumonia versus SBP versus colitis. - The patient was started initially on broad-spectrum antibiotics with imipenem and vancomycin as well as doxycycline. His vancomycin was discontinued as a methicillin resistant Staphylococcus aureus (MRSA) screen was negative and is continued on imipenem and doxycycline. The patient had increased leukocytosis yesterday and given the evidence of some colitis on the CT of his abdomen, he was started empirically on Flagyl. - The patient's leukocytosis has been improving. Will continue with imipenem, doxycycline and Flagyl for now and will follow up a repeat procalcitonin tomorrow to continued to trend and for de-escalation of antibiotics. - Will followup results of his initial blood cultures which showed gram positive rods. This may potentially be contaminant from skin marianela. His repeat blood cultures are negative. - The patient's blood pressure remained stable off of pressors and his lactic acid has normalized. 2. Acute hypoxemic respiratory failure in setting of shock as well as from decompensated CHF with new onset atrial fibrillation with rapid ventricular rate (RVR). The patient also has history of COPD and was smoking one pack a day prior to his admission. He likely has a component of some borderline hypoxia at baseline due to his smoking and history of COPD. - The patient has been weaned off nasal cannula oxygen. Will continue to monitor and continue nasal cannula as needed to maintain O2 sat above 90% - will continue DuoNebs every 6 hours. 3. Decompensated CHF with evidence of ascites and increased lower extremity edema. - The patient was started on Lasix 40 mg IV twice a day yesterday and had significant urine output noted. - His Lasix IV was discontinued and will change him to Lasix by mouth 60 mg daily and will add aldactone 25 mg. - Will continue Morales catheter for monitoring ins and outs. The patient can likely have a trial of void in the next few days. - The patient with new onset atrial fibrillation with RVR. He appears to currently be rate controlled. He has a history of noncompliance in the past and anticoagulation would likely be difficult for him on an outpatient basis. 4. Ascites with evidence of some transaminitis and thrombocytopenia. The patient's thrombocytopenia may have been in the setting of infection as well as some chronic component secondary to potential liver etiology. The patient's abnormal LFTs may also been due to chronic right heart failure although he does have significant alcohol abuse history and so some of it may also been due to chronic liver disease. His thrombocytopenia appears to be improving. - The patient does continue have some tenderness in the abdomen and he did have moderate ascites initially. He is on antibiotics already for potential SBP. - The patient will be continue with Lasix and aldactone for diuresis. If he continues to be symptomatic from his ascites, he may benefit from a paracentesis at some point. 5. Acute kidney injury (GRACIELA) likely prerenal improving. History of chronic kidney disease (CKD) - will continue to monitor his electrolytes and replete as needed - will continue monitor his renal function with diuresis. - Given his history of alcohol abuse, will continue multivitamin, folic acid, thiamine supplementation. 6. Gastroesophageal reflux disease with a history of dysphagia. - The patient was ordered for pureed and nectar thickened liquids given evidence of aspiration with a speech evaluation. The patient has refused the pureed diet however and is adamant on regular diet. We did discuss risk of aspiration with the patient as well as risk for recurrent aspiration pneumonia which he understands. Based on his goals of care, he would like to continue with a regular diet and he has also refused feeding tubes. - Continue proton pump inhibitor (PPI). Deep venous thrombosis (DVT) prophylax heparin. CODE STATUS: DO NOT RESUSCITATE /DO NOT INTUBATE. Total critical care time spent not including procedures approximately 45 minutes. NAFISA
[2019-12-03] MEDS ORDERED: METOCLOPRAMIDE INJ 10MG/2ML VIAL (J2765 PER 1) IV PRN (11:30)
[2019-12-03] MEDS ORDERED: POTASSIUM CHLORIDE 10 MEQ SR TABLET PO ONE (12:00)
[2019-12-03] MEDS ORDERED: KCL 10MEQ/100ML SWI (KRUN) 10 MEQ in IV 1 EA IV ONE (12:00)
[2019-12-04] VITALS (8 sets, daily range): BP systolic 100–146; BP diastolic 55–80
[2019-12-04] MEDS: IPRATROPIUM 0.5MG/ALBUTEROL 2.5MG INH SOL UD 3ML (DUONEB)(J7620) NEB SCH ×4 (01:37→19:06)
[2019-12-04] MEDS: guaiFENesin DM LIQ 10ML UD PO SCH ×4 (05:03→23:03)
[2019-12-04 05:14] LABS: BASO % 0.2 % (0.0-1.0); EOS # 0.1 10^3/uL (0.0-0.5); EOS % 0.3 % (0.0-3.0); HEMOGLOBIN 11.2 g/dl (13.5-17.5); LYMPH # 0.9 10^3/uL (1.5-5.0); LYMPH % 5.8 % (24.0-44.0); MEAN CORPUSCULAR HEMOGLOBIN 30.7 pg (27.0-33.0); MEAN CORPUSCULAR HGB CONC 36.1 g/dl (32.0-36.5); MEAN CORPUSCULAR VOLUME 84.9 fl (80.0-96.0); MONO # 1.5 10^3/uL (0.0-0.8); MONO % 9.5 % (0.0-5.0); NEUTROPHILS # 13.2 10^3/uL (1.5-8.5); NEUTROPHILS % 83.4 % (36.0-66.0); PLATELET COUNT, AUTOMATED 116 10^3/uL (150-450); RED BLOOD COUNT 3.65 10^6/uL (4.30-6.10); WHITE BLOOD COUNT 15.8 10^3/uL (4.0-10.0)
[2019-12-04 05:34] LABS: ALBUMIN 1.9 GM/DL (3.2-5.2); BILIRUBIN,TOTAL 0.7 MG/DL (0.2-1.0); CALCIUM LEVEL 7.7 MG/DL (8.8-10.2); CREATININE FOR GFR 1.28 MG/DL (0.70-1.30); MAGNESIUM LEVEL 1.9 MG/DL (1.8-2.4); POTASSIUM SERUM 3.7 MEQ/L (3.5-5.1); TOTAL PROTEIN 5.5 GM/DL (6.4-8.2)
[2019-12-04] MEDS: ENOXAPARIN 80MG/0.8ML SYRINGE (J1650 PER 10MG) SC SCH ×2 (05:41→15:00)
[2019-12-04] MEDS: metroNIDAZOLE 500 MG in IV 1 EA IV SCH ×3 (05:41→22:17)
[2019-12-04] MEDS: FOLIC ACID 1 MG TAB PO SCH (09:11)
[2019-12-04] MEDS: PANTOPRAZOLE 40MG VIAL (C9113 PER 1) IV SCH (09:11)
[2019-12-04] MEDS: MULTIVITAMINS/MINERALS THERAP 1 TAB PO SCH (09:11)
[2019-12-04] MEDS: DOXYCYCLINE HYCLATE 100 MG in D5W MINI-BAG PLUS 100 ML IV SCH ×2 (09:11→20:09)
[2019-12-04] MEDS: FUROSEMIDE 20 MG TAB PO SCH (09:11)
[2019-12-04] MEDS: SPIRONOLACTONE 25 MG TAB PO SCH (09:27)
--- NOTE | 2019-12-04 10:04 | IPNPDOC ---
Text Note Date of Service The patient was seen on 12/04/19. NOTE Subjective: No any acute events overnight. Patient complains of abdominal ful lness. Patient denied fever, chills, chest pain or palpitations, diarrhea Objective: VITAL SIGNS: Please see below. GENERAL: Obese male HEENT: NCAT, anicteric sclera, LIDIA NECK: supple, plus JVD CARDIOVASCULAR EXAMINATION: NS1S2, irregularly irregular RESPIRATORY EXAMINATION: Diminished lung sounds bilaterally, rales at the base ABDOMINAL EXAMINATION: Moderately distended, nontender, no rebound EXTREMITIES: no cyanosis, clubbing, edema SKIN: warm, no rashes. NEUROLOGICAL EXAMINATION: AAO x 3, no motor/sensory deficits, follows commands Patient is 84 years old male with past medical history of diastolic CHF, hypertension, type 2 diabetes, COPD, dementia presented hospital with increased shortness of breath. Patient was found to have sepsis due to left lower lobe pneumonia. Also patient developed atrial fibrillation with rapid ventricular rate and acute on chronic CHF exacerbation. Septic shock Secondary to LLL pneumonia superimposed with possible aspiration. There is also concern for SBP, given moderate ascites however his abdomen soft, nontender on palpation Patient had hypotension, leukocytosis, lactic acidosis on admission Patient received treatment with pressure support, blood pressure was stabilized 2 sets of blood culture shows gram-positive rods Continue antibiotics meropenem and doxycycline. We added metronidazole IV. On 12/03/19 leukocytosis improved DC vancomycin, patient is MRSA negative Left lobe pneumonia CT chest showed consolidations in the lingula and left lower lobe. Consistent with pneumonia. Incentive spirometry Continue antibiotics Acute hypoxemic respiratory failure Secondary to community acquired pneumonia superimposed with acute CHF Continue oxygen Doppler ultrasound of lower extremities negative Elevated troponin Troponin trended down No acute ischemic changes on EKG, patient denied chest pain Most likely secondary to demand ischemia Acute diastolic CHF Patient has elevated BNP, plus JVD We initiated diuresis on patient, blood pressure stable Echo showed mildly depressed global left ventricular systolic function with mild global hypokinesis. There are some features of grade 2 left ventricular diastolic dysfunction, left ventricular end-diastolic pressure might be elevated. New-onset of atrial fibrillation with rapid ventricular rate Most likely secondary to CHF exacerbation and sepsis Heart rate is under control Patient is in the sinus rhythm I started therapeutic dose of Lovenox Moderate ascites There is concern for cirrhosis, patient has transaminitis with thrombocytopenia Abdomen nontender on palpation We'll proceed with diagnostic and therapeutic paracentesis after initial stabilization Lasix, Aldactone Acute kidney injury Improved Secondary to volume contraction secondary to sepsis Continue to monitor Electrolyte imbalance Replaced Thrombocytopenia Improved Most likely secondary to cirrhosis or Trevino or underlying malignancy or infection Continue to monitor No any signs of bleeding PT/OT VS,Fishbone, I+O VS, Fishbone, I+O Laboratory Tests 12/04/19 04:57 Vital Signs Date Time Temp Pulse Resp B/P (MAP) Pulse Ox O2 Delivery O2 Flow Rate FiO2 12/04/19 08:00 97.9 85 18 118/56 (76) 96 Room Air 12/02/19 20:45 15.0 50 I&O- Last 24 Hours up to 6 AM 12/04/19 05:59 Intake Total 1040 ml Output Total 1035 ml Balance 5 ml LISSY PADRON DO Dec 04, 2019 10:04
[2019-12-04] MEDS: MEROPENEM INJ 1 GM in IV 1 EA IV SCH ×2 (10:20→21:32)
--- NOTE | 2019-12-04 13:18 | IPN ---
DATE OF SERVICE: 12/04/2019 SUBJECTIVE: Mr. Tamayo was seen this morning and examined. There have been no adverse events reported overnight. He has remained normotensive, afebrile with a maximum temperature (Tmax) of 97.8. Regarding his breathing, he has been on room air with oxygen saturations between 90% and 96%. He does complain of some pressure when taking a deep breath. He otherwise denies any chest pain or increased shortness of breath. He is currently continued on by mouth Lasix and Aldactone. OBJECTIVE: VITAL SIGNS: Temperature 97.9, pulse 85, respiratory rate 18, blood pressure 118/56, pulse oximetry 96% on room air. GENERAL: The patient is awake, alert, oriented. He does not appear in any acute distress. He is lying comfortably in bed. Currently receiving nebulized treatment. CARDIOVASCULAR: Normal S1, S2. Irregular rhythm with a normal rate. No clicks, rubs, or murmurs. PULMONARY: The patient has clear vesicular breath sounds with some bibasilar crackles. There are symmetric chest excursions, good respiratory effort. There are no wheezes or rhonchi. There is no accessory muscle use. ABDOMINAL: The patient's abdomen is soft. It is nondistended, nontender. He has a midline in incisional hernia. Normoactive bowel sounds throughout. EXTREMITIES: There is improvement in edema, approximately 1+ pitting edema in the bilateral lower extremities. There is no calf tenderness. He has full and equal pulses in bilateral upper and lower extremities. NEUROLOGIC: No focal neurological deficits. PSYCHIATRIC: Mood and affect appear appropriate. LABORATORY DATA: Hematology: White blood cell 15.8, hemoglobin 11.2, hematocrit 31.0, platelet count 116. Chemistries: Sodium 141, potassium 3.7, chloride 107, carbon dioxide 27, BUN 24, creatinine 1.28, fasting glucose 141, calcium 7.7, magnesium 1.9, total bilirubin 0.7, AST 33, ALT 31, alkaline phosphatase 136, total protein 5.5, albumin 1.9. Procalcitonin currently pending. MICROBIOLOGY: Blood cultures 12/02/2019 negative times two. Blood cultures from 12/01/2019 positive for gram-positive rods, final pending. INPATIENT MEDICATIONS: - Zofran 4 mg every 4 hours as needed - metoclopramide 10 mg every 6 hours as needed - Lasix 60 mg daily by mouth - Aldactone 25 mg daily by mouth - DuoNebs required every 6 hours - Flagyl 500 mg intravenous (IV) every 8 hours, day #3 - meropenem 1 gram IV every 12 hours, day #4 - doxycycline 100 mg every 12 hours IV, day #4 - guaifenesin 5 mL every 6 hours by mouth - Lovenox 80 mg every 12 hours subcutaneous - folic acid 1 mg daily by mouth - multivitamins one tablet daily by mouth - Protonix 40 mg daily IV - Prevnar 13 0.5 mL intramuscular (IM) - Tylenol 650 mg every 4 hours as needed - milk of magnesia 30 mL daily as needed by mouth ASSESSMENT AND PLAN: Mr. Tamayo is an 84-year-old male who presented to [facility] Emergency Department originally found to be in septic shock likely secondary to combination of pneumonia versus spontaneous bacterial peritonitis (SBP) versus colitis. Consequently, developed new-onset atrial fibrillation, likely decompensated congestive heart failure. The patient was transiently on Levophed in the intensive care unit. He has received broad-spectrum antibiotics. Currently remains on Flagyl, meropenem, and doxycycline. He has responded well. The patient is currently on diuretics, and diuresing well. 1. Status post septic shock secondary to pneumonia versus spontaneous bacterial peritonitis versus colitis. The patient is currently on broad-spectrum antibiotics, including meropenem, doxycycline, and Flagyl. He has remained afebrile. A white blood cell count continues to trend down. He has a procalcitonin, on presentation was 8. Repeat was ordered today and is currently pending. Blood cultures have remained negative. Blood culture preliminary from 12/01/2019 demonstrated gram-positive rods times two cultures. Currently awaiting identification and sensitivities. Follow-up procalcitonin, can trend to aid in de-escalation and discontinuing antibiotics. Will likely need 2 weeks given bacteremia. 2. Acute hypoxic respiratory failure likely secondary to combination of decompensated congestive heart failure and new-onset atrial fibrillation in the setting of septic shock. The patient is currently stable. He continues to be in atrial fibrillation. However, he is rate controlled. He is receiving anticoagulation via Lovenox. His shortness of breath relatively resolved. He is currently on room air. He states his only difficulty is that when he has some feeling of pressure when taking a deep breath. However, this likely is secondary to his ascites. Currently, the patient is continued on furosemide 60 mg daily by mouth and Aldactone with fluid restriction. 3. Decompensated congestive heart failure (CHF) with ascites. As stated previously, the patient likely had decompensated congestive heart failure. He does have ascites, as well. The ascites may be secondary to decompensated right heart failure. He is currently on by mouth lasix and Aldactone. Will continue for now. However, the patient's ascites may be secondary to liver etiology and may warrant a further workup. Although his transaminitis seems to be improving and was likely secondary to septic shock 4. New-onset atrial fibrillation. The patient had presented with new-onset atrial fibrillation likely contributing to decompensated congestive heart failure. He is currently on Lovenox for anticoagulation at therapeutic dosing. He is currently rate controlled. However, not on any rate-controlling medication. He will likely need to continue on anticoagulation and possible addition of a rate-controlling medication. However, the patient has a history of being fairly noncompliant with medication. 5. Ascites with transaminitis and thrombocytopenia. The patient does have ascites that was demonstrated on CT imaging of the abdomen and pelvis. Additionally, he had presented with transaminitis likely secondary and multifactorial to a combination of chronic alcohol use, as well as septic shock and hypotension. Currently, his AST has normalized with only mild elevation in alkaline phosphatase. This is possibly secondary to liver etiology, given the patient's current heavy feeling when taking a deep breath. This may be secondary to his ascites. He may benefit from a therapeutic paracentesis to drain some of the fluid off his abdomen. Either way, we will continue the patient's Lasix and Aldactone, which should help him improve. 6. Acute kidney injury. The patient presented with acute kidney injury. This appears to be prerenal from previous chemistry and likely secondary to his episodes of hypotension when he first presented. Currently, his creatinine is 1.28, which appears to be close to his baseline. Will continue to monitor. 7. Gastrointestinal (GI) prophylaxis. The patient is currently on Protonix daily IV. Will continue. 8. Dysphagia. The patient had presented with dysphagia and had stated that he sometimes coughs when eating or drinking. This likely contributes to aspiration and likely potentially cause recurrent aspiration pneumonitis. The patient has been seen by speech therapy with recommendations. However, the patient states that he does not want to follow a pureed diet and likely to be noncompliant with this upon discharge. 9. Deep venous thrombosis (DVT) prophylaxis. As stated previously, the patient is on therapeutic Lovenox for new-onset atrial fibrillation. Will continue while in the hospital. Code status DNR/DNI Total critical care time spent not including procedures approximately 40mins Please do not hesitate to call if any further questions or concerns. I, Aiyana Zuñiga, have conducted an independent history and examination of the patient and agree with the plan as detailed by resident above and discussed during rounds. NAFISA
--- NOTE | 2019-12-04 15:25 | IPNPDOC ---
Text Note Date of Service The patient was seen on 12/04/19. NOTE Paracentesis INDICATION: Ascites PROCEDURE AUTO SERVICE WRITER: Dr Padron, Transition Lead Dr. Goodman_ Ultrasound used to sally location: Y CONSENT: Consent was obtained from Roni Little prior to the procedure. Indications, risks, and benefits were explained at length. PROCEDURE SUMMARY: A time-out was performed. My hands were washed immediately prior to the procedure. I wore a surgical cap, mask with protective eyewear, sterile gown and sterile gloves throughout the procedure. The area was cleansed and draped in usual sterile fashion using chlorhexidine scrub. Anesthesia was achieved with 1% lidocaine. The skin of the abdomen was prepped and draped in a sterile fashion using chlorhexidine scrub. 1% lidocaine was used to numb the skin, soft tissue and peritoneum. The paracentesis catheter was inserted and advanced with negative pressure until yellow colored fluid was aspirated. Approximately 20 mL of ascitic fluid was collected and sent for laboratory analysis. The catheter was then connected to the vaccutainer and 1.7 liters of additional ascitic fluid were drained. The catheter was removed and no leaking was noted. A bandaid was placed over the puncture wound. The patient tolerated the procedure well without any immediate complications. Estimated blood loss was 5 ml VS,Joeybone, I+O VS, Fishbone, I+O Laboratory Tests 12/04/19 04:57 Vital Signs Date Time Temp Pulse Resp B/P (MAP) Pulse Ox O2 Delivery O2 Flow Rate FiO2 12/04/19 12:00 96.8 80 18 120/56 (77) 98 Room Air 12/02/19 20:45 15.0 50 I&O- Last 24 Hours up to 6 AM 12/04/19 06:00 Intake Total 1040 ml Output Total 1035 ml Balance 5 ml LISSY PADRON DO Dec 04, 2019 15:25
[2019-12-04 15:45] LABS: APPEARANCE, BODY FLUID CLEAR (CLEAR); ASCITES FL COLOR PALE YELLOW (COLORLESS); SOURCE, BODY FLUID ASCITES
[2019-12-04] MEDS: ONDANSETRON 4MG/2ML VIAL IV PRN (20:09)
[2019-12-05] VITALS: BP_SYST 136; BP_SYST 96; BP_DIAS 53; BP_DIAS 80
[2019-12-05 00:10] LABS: BODY FLUID CULTURE Not indicated. (.); LEGIONELLA ANTIGEN URINE Negative (Negative); ORGANISM ID Not indicated. (.); SPECIMEN SOURCE Urine (.); URINE STREP PNEUMONIAE ANTIGEN Negative (Negative)
[2019-12-05] MEDS: IPRATROPIUM 0.5MG/ALBUTEROL 2.5MG INH SOL UD 3ML (DUONEB)(J7620) NEB SCH ×4 (01:35→19:12)
[2019-12-05 04:00] VITALS: BP 135/84
[2019-12-05] MEDS: ONDANSETRON 4MG/2ML VIAL IV PRN ×2 (05:19→12:39)
[2019-12-05] MEDS: metroNIDAZOLE 500 MG in IV 1 EA IV SCH ×3 (05:19→20:49)
[2019-12-05] MEDS: guaiFENesin DM LIQ 10ML UD PO SCH ×2 (05:19→12:00)
[2019-12-05 06:13] LABS: BASO # 0.1 10^3/uL (0.0-0.2); BASO % 0.4 % (0.0-1.0); EOS # 0.1 10^3/uL (0.0-0.5); EOS % 0.6 % (0.0-3.0); HEMATOCRIT 30.9 % (42.0-52.0); HEMOGLOBIN 10.9 g/dl (13.5-17.5); LYMPH # 0.8 10^3/uL (1.5-5.0); LYMPH % 6.3 % (24.0-44.0); MEAN CORPUSCULAR HEMOGLOBIN 29.9 pg (27.0-33.0); MEAN CORPUSCULAR HGB CONC 35.3 g/dl (32.0-36.5); MEAN CORPUSCULAR VOLUME 84.9 fl (80.0-96.0); MONO # 1.6 10^3/uL (0.0-0.8); NEUTROPHILS # 9.6 10^3/uL (1.5-8.5); NEUTROPHILS % 78.2 % (36.0-66.0); PLATELET COUNT, AUTOMATED 117 10^3/uL (150-450); RED BLOOD COUNT 3.64 10^6/uL (4.30-6.10); WHITE BLOOD COUNT 12.3 10^3/uL (4.0-10.0)
[2019-12-05 06:30] LABS: ALBUMIN 1.9 GM/DL (3.2-5.2); BILIRUBIN,TOTAL 0.7 MG/DL (0.2-1.0); CALCIUM LEVEL 7.7 MG/DL (8.8-10.2); CREATININE FOR GFR 1.26 MG/DL (0.70-1.30); MAGNESIUM LEVEL 1.8 MG/DL (1.8-2.4); POTASSIUM SERUM 3.7 MEQ/L (3.5-5.1); TOTAL PROTEIN 5.3 GM/DL (6.4-8.2)
[2019-12-05 07:27] VITALS: BP 117/58
[2019-12-05] MEDS: cefTRIAXone SOD 2 GM in D5W MINI-BAG PLUS 50 ML IV SCH (08:08)
[2019-12-05] MEDS: PANTOPRAZOLE 40MG VIAL (C9113 PER 1) IV SCH (08:08)
[2019-12-05] MEDS: FOLIC ACID 1 MG TAB PO SCH (08:09)
[2019-12-05] MEDS: MULTIVITAMINS/MINERALS THERAP 1 TAB PO SCH (08:09)
[2019-12-05] MEDS: SPIRONOLACTONE 25 MG TAB PO SCH (08:09)
[2019-12-05] MEDS: FUROSEMIDE 20 MG TAB PO SCH (08:09)
--- NOTE | 2019-12-05 11:03 | IPNPDOC ---
Text Note Date of Service The patient was seen on 12/05/19. NOTE Subjective: Patient continues to have feeling of abdominal fullness. No any a cute events overnight. Objective: VITAL SIGNS: Please see below. GENERAL: Obese male HEENT: NCAT, anicteric sclera, LIDIA NECK: supple, plus JVD CARDIOVASCULAR EXAMINATION: NS1S2, irregularly irregular RESPIRATORY EXAMINATION: Diminished lung sounds bilaterally, rales at the base ABDOMINAL EXAMINATION: Mildly distended, nontender, no rebound EXTREMITIES: no cyanosis, clubbing, +1 mild edema SKIN: warm, no rashes. NEUROLOGICAL EXAMINATION: AAO x 3, no motor/sensory deficits, follows commands Patient is 84 years old male with past medical history of diastolic CHF, hypertension, type 2 diabetes, COPD, dementia presented hospital with increased shortness of breath. Patient was found to have sepsis due to left lower lobe pneumonia. Also patient developed atrial fibrillation with rapid ventricular rate and acute on chronic CHF exacerbation. Septic shock Resolved for now Secondary to LLL pneumonia superimposed with possible aspiration. There is also concern for SBP, given moderate ascites however his abdomen soft, nontender on palpation Patient had hypotension, leukocytosis, lactic acidosis on admission Patient received treatment with pressure support, blood pressure was stabilized 2 sets of blood culture shows Escherichia coli, pansensitive Patient received antibiotics meropenem and doxycycline. We added metronidazole IV. On 12/03/19 leukocytosis improved. On 12/04/19 paracentesis was done, ascitic fluid showed 1300 leukocytes. Await Gram stain. On 12/05/19 due to possible SBP we changed antibiotics to ceftriaxone 2 g in a day, continue metronidazole. 12/04/19 Procalcitonin of 5 DC vancomycin, patient is MRSA negative Left lobe pneumonia CT chest showed consolidations in the lingula and left lower lobe. Consistent with pneumonia. Incentive spirometry Continue antibiotics Acute hypoxemic respiratory failure Secondary to community acquired pneumonia superimposed with acute CHF Continue oxygen Doppler ultrasound of lower extremities negative Elevated troponin Troponin trended down No acute ischemic changes on EKG, patient denied chest pain Most likely secondary to demand ischemia Acute diastolic CHF Patient had elevated BNP, plus JVD We initiated diuresis on patient, blood pressure stable Echo showed mildly depressed global left ventricular systolic function with mild global hypokinesis. There are some features of grade 2 left ventricular diastolic dysfunction, left ventricular end-diastolic pressure might be elevated. Will check BNP pt developed good urine output New-onset of atrial fibrillation with rapid ventricular rate Most likely secondary to CHF exacerbation and sepsis Heart rate is under control Patient is in the sinus rhythm I started therapeutic dose of Lovenox Moderate ascites most likely 2/2 acute diastolic CHF superimposed with possible liver cirrhosis, patient had transaminitis with thrombocytopenia. However, CT abdomen showed normal liver. Abdomen nontender on palpation continue Lasix, Aldactone Acute kidney injury Improved Secondary to volume contraction secondary to sepsis Continue to monitor Electrolyte imbalance Replaced Thrombocytopenia Improved Most likely secondary to cirrhosis or Trevino or underlying malignancy or infection Continue to monitor No any signs of bleeding VS,Fishbone, I+O VS, Fishbone, I+O Laboratory Tests 12/05/19 05:41 Vital Signs Date Time Temp Pulse Resp B/P (MAP) Pulse Ox O2 Delivery O2 Flow Rate FiO2 12/05/19 07:27 97.1 83 20 117/58 (77) 90 Room Air 12/02/19 20:45 15.0 50 I&O- Last 24 Hours up to 6 AM 12/05/19 05:59 Intake Total 610 ml Output Total 2960 ml Balance -2350 ml LISSY PADRON DO Dec 05, 2019 11:03
[2019-12-05 12:00] VITALS: BP 119/76
[2019-12-05] MEDS: DOXYCYCLINE HYCLATE 100MG TABLET PO SCH ×2 (12:36→20:49)
[2019-12-05 14:07] LABS: CHLAMYDIA PNEUMONIAE IgM <1:10 (Neg:<1:10); MYCOPLASMA PNEUMONIAE IgG 745 U/mL (0-99); MYCOPLASMA PNEUMONIAE IgM <770 U/mL (0-769)
[2019-12-05 16:00] VITALS: BP 134/60
[2019-12-05] MEDS: NYSTATIN 500,000 U/5 ML SUSP UDC SS SCH ×2 (16:25→20:49)
[2019-12-05] MEDS: METOCLOPRAMIDE INJ 10MG/2ML VIAL (J2765 PER 1) IV SCH (16:25)
[2019-12-05] MEDS: RIVAROXABAN 20 MG TAB (XARELTO) PO SCH (17:41)
[2019-12-05 20:00] VITALS: BP 131/56
[2019-12-06] VITALS: BP 132/60
[2019-12-06] MEDS: METOCLOPRAMIDE INJ 10MG/2ML VIAL (J2765 PER 1) IV SCH ×4 (00:20→23:07)
[2019-12-06] MEDS: IPRATROPIUM 0.5MG/ALBUTEROL 2.5MG INH SOL UD 3ML (DUONEB)(J7620) NEB SCH ×4 (01:21→21:04)
[2019-12-06 04:00] VITALS: BP 122/57
[2019-12-06 04:56] LABS: HEMATOCRIT 34.4 % (42.0-52.0); HEMOGLOBIN 12.3 g/dl (13.5-17.5); MEAN CORPUSCULAR HEMOGLOBIN 30.5 pg (27.0-33.0); MEAN CORPUSCULAR HGB CONC 35.8 g/dl (32.0-36.5); MEAN CORPUSCULAR VOLUME 85.4 fl (80.0-96.0); PLATELET COUNT, AUTOMATED 146 10^3/uL (150-450); RED BLOOD COUNT 4.03 10^6/uL (4.30-6.10); WHITE BLOOD COUNT 13.4 10^3/uL (4.0-10.0)
[2019-12-06 05:18] LABS: CALCIUM LEVEL 7.8 MG/DL (8.8-10.2); CREATININE FOR GFR 1.29 MG/DL (0.70-1.30); GLOMERULAR FILTRATION RATE 56.5 (>35); MAGNESIUM LEVEL 1.6 MG/DL (1.8-2.4); POTASSIUM SERUM 3.9 MEQ/L (3.5-5.1)
[2019-12-06] MEDS: metroNIDAZOLE 500 MG in IV 1 EA IV SCH ×3 (05:45→21:45)
[2019-12-06] MEDS ORDERED: SLF 3 ML SYR IV PRN (05:45)
[2019-12-06] MEDS: SLF 3 ML SYR IV SCH ×3 (06:00→22:09)
[2019-12-06 07:54] VITALS: BP 112/61
[2019-12-06] MEDS ORDERED: MAG SULF 1GM/100ML (MAG RUN) 1 GM in IV 1 EA IV ONE (08:00)
[2019-12-06] MEDS: FUROSEMIDE 20 MG TAB PO SCH (09:00)
[2019-12-06] MEDS ORDERED: VENLAFAXINE **XR** 37.5 MG CAPSULE PO SCH (09:00)
[2019-12-06] MEDS: PANTOPRAZOLE 40MG VIAL (C9113 PER 1) IV SCH (09:01)
[2019-12-06] MEDS: SPIRONOLACTONE 25 MG TAB PO SCH (09:01)
[2019-12-06] MEDS: MULTIVITAMINS/MINERALS THERAP 1 TAB PO SCH (09:01)
[2019-12-06] MEDS: NYSTATIN 500,000 U/5 ML SUSP UDC SS SCH ×3 (09:01→21:45)
[2019-12-06] MEDS: cefTRIAXone SOD 2 GM in D5W MINI-BAG PLUS 50 ML IV SCH (09:01)
[2019-12-06] MEDS: FOLIC ACID 1 MG TAB PO SCH (09:01)
[2019-12-06] MEDS: DOXYCYCLINE HYCLATE 100MG TABLET PO SCH ×2 (09:01→21:45)
[2019-12-06 11:58] VITALS: BP 118/61
--- NOTE | 2019-12-06 13:57 | IPNPDOC ---
Text Note Date of Service The patient was seen on 12/06/19. NOTE 0Subjective: Patient complains of low energy, sad mood, he stated that most of the time he is upset and he lost interest in daily activities. Objective: VITAL SIGNS: Please see below. GENERAL: Obese male HEENT: NCAT, anicteric sclera, LIDIA NECK: supple, plus JVD CARDIOVASCULAR EXAMINATION: NS1S2, irregularly irregular RESPIRATORY EXAMINATION: Diminished lung sounds bilaterally, rales at the base ABDOMINAL EXAMINATION: Mildly distended, nontender, no rebound EXTREMITIES: no cyanosis, clubbing, +1 mild edema SKIN: warm, no rashes. NEUROLOGICAL EXAMINATION: AAO x 3, no motor/sensory deficits, follows commands Patient is 84 years old male with past medical history of diastolic CHF, hypertension, type 2 diabetes, COPD, dementia presented hospital with increased shortness of breath. Patient was found to have sepsis due to left lower lobe pneumonia. Also patient developed atrial fibrillation with rapid ventricular rate and acute on chronic CHF exacerbation. During hospital stay patient was found to have SBP after paracentesis. Patient received treatment with broad- spectrum antibiotics. Blood culture positive for Escherichia coli. Septic shock Resolved for now Secondary to LLL pneumonia superimposed with possible aspiration. There is also concern for SBP, given moderate ascites however his abdomen soft, nontender on palpation Patient had hypotension, leukocytosis, lactic acidosis on admission Patient received treatment with pressure support, blood pressure was stabilized 2 sets of blood culture shows Escherichia coli, pansensitive Patient received antibiotics meropenem and doxycycline. We added metronidazole IV. On 12/03/19 leukocytosis improved. On 12/04/19 paracentesis was done, ascitic fluid showed 1300 leukocytes. Gram stain negative. On 12/05/19 due to possible SBP we changed antibiotics to ceftriaxone 2 g in a day, continue metronidazole. 12/04/19 Procalcitonin of 5 DC vancomycin, patient is MRSA negative Left lobe pneumonia CT chest showed consolidations in the lingula and left lower lobe. Consistent with pneumonia. Incentive spirometry Continue antibiotics Acute hypoxemic respiratory failure Secondary to community acquired pneumonia superimposed with acute CHF Continue oxygen Doppler ultrasound of lower extremities negative Elevated troponin Troponin trended down No acute ischemic changes on EKG, patient denied chest pain Most likely secondary to demand ischemia Acute diastolic CHF Patient had elevated BNP, plus JVD We initiated diuresis on patient, blood pressure stable Echo showed mildly depressed global left ventricular systolic function with mild global hypokinesis. There are some features of grade 2 left ventricular diastolic dysfunction, left ventricular end-diastolic pressure might be elevated. Will check BNP pt developed good urine output New-onset of atrial fibrillation with rapid ventricular rate Most likely secondary to CHF exacerbation and sepsis Heart rate is under control Patient is in the sinus rhythm Xarelto Moderate ascites most likely 2/2 acute diastolic CHF superimposed with possible liver cirrhosis, patient had transaminitis with thrombocytopenia. However, CT abdomen showed normal liver. Abdomen nontender on palpation continue Lasix, Aldactone Acute kidney injury Improved Secondary to volume contraction secondary to sepsis Continue to monitor Electrolyte imbalance Replaced Thrombocytopenia Improved Continue to monitor No any signs of bleeding Depression I will start Venlafaxine VS,Fishbone, I+O VS, Fishbone, I+O Laboratory Tests 12/06/19 04:40 Vital Signs Date Time Temp Pulse Resp B/P (MAP) Pulse Ox O2 Delivery O2 Flow Rate FiO2 12/06/19 11:58 97.7 61 18 118/61 (80) 91 Room Air 12/02/19 20:45 15.0 50 I&O- Last 24 Hours up to 6 AM 12/06/19 06:00 Intake Total 950 ml Output Total 775 ml Balance 175 ml LISSY PADRON DO Dec 06, 2019 13:57
[2019-12-06] MEDS: MAGNESIUM GLUCONATE 500 MG TAB PO SCH (14:56)
[2019-12-06 15:56] VITALS: BP 142/67
[2019-12-06] MEDS: METOPROLOL TART 12.5 MG PER 1/2 TAB PO SCH (16:44)
[2019-12-06 17:12] LABS: BLOOD UREA NITROGEN 23 MG/DL (7-18); CALCIUM LEVEL 8.3 MG/DL (8.8-10.2); CARBON DIOXIDE LEVEL 26 MEQ/L (21-32); CHLORIDE LEVEL 106 MEQ/L (98-107); CK-MB VALUE MASS < 1.0 NG/ML (<3.6); CPK CREATINE PHOSPHOKINASE 37 U/L (39-308); CREATININE FOR GFR 1.37 MG/DL (0.70-1.30); GLOMERULAR FILTRATION RATE 52.7 (>35); GLUCOSE, FASTING 169 MG/DL (70-100); POTASSIUM SERUM 3.6 MEQ/L (3.5-5.1); SODIUM LEVEL 138 MEQ/L (136-145); TROPONIN I 0.02 NG/ML (< 0.10)
[2019-12-06] MEDS: RIVAROXABAN 20 MG TAB (XARELTO) PO SCH (17:48)
[2019-12-06 20:00] VITALS: BP 108/67
[2019-12-07] VITALS: BP 116/60
[2019-12-07] MEDS: IPRATROPIUM 0.5MG/ALBUTEROL 2.5MG INH SOL UD 3ML (DUONEB)(J7620) NEB SCH ×4 (01:35→20:10)
[2019-12-07 04:00] VITALS: BP 109/55
[2019-12-07] MEDS: SLF 3 ML SYR IV SCH ×3 (06:11→21:01)
[2019-12-07] MEDS: metroNIDAZOLE 500 MG in IV 1 EA IV SCH (06:11)
[2019-12-07 06:35] LABS: HEMATOCRIT 31.1 % (42.0-52.0); HEMOGLOBIN 11.1 g/dl (13.5-17.5); MEAN CORPUSCULAR HGB CONC 35.7 g/dl (32.0-36.5); MEAN CORPUSCULAR VOLUME 84.1 fl (80.0-96.0); PLATELET COUNT, AUTOMATED 164 10^3/uL (150-450); WHITE BLOOD COUNT 11.6 10^3/uL (4.0-10.0)
[2019-12-07 06:59] LABS: CALCIUM LEVEL 8.2 MG/DL (8.8-10.2); CREATININE FOR GFR 1.27 MG/DL (0.70-1.30); GLOMERULAR FILTRATION RATE 57.5 (>35); MAGNESIUM LEVEL 1.6 MG/DL (1.8-2.4); POTASSIUM SERUM 3.7 MEQ/L (3.5-5.1)
[2019-12-07 07:39] VITALS: BP 112/58
[2019-12-07] MEDS ORDERED: POTASSIUM CHLORIDE 10 MEQ SR TABLET PO ONE (08:00)
[2019-12-07] MEDS ORDERED: MAG SULF 1GM/100ML (MAG RUN) 1 GM in IV 1 EA IV ONE (08:00)
[2019-12-07] MEDS: PANTOPRAZOLE 40MG VIAL (C9113 PER 1) IV SCH (08:58)
[2019-12-07] MEDS: SPIRONOLACTONE 25 MG TAB PO SCH (08:58)
[2019-12-07] MEDS: FOLIC ACID 1 MG TAB PO SCH (08:58)
[2019-12-07] MEDS: MULTIVITAMINS/MINERALS THERAP 1 TAB PO SCH (08:59)
[2019-12-07] MEDS: METOPROLOL TART 12.5 MG PER 1/2 TAB PO SCH ×2 (08:59→21:01)
[2019-12-07] MEDS: MAGNESIUM GLUCONATE 500 MG TAB PO SCH (08:59)
[2019-12-07] MEDS: METOCLOPRAMIDE INJ 10MG/2ML VIAL (J2765 PER 1) IV SCH ×2 (09:00→15:53)
[2019-12-07] MEDS: cefTRIAXone SOD 2 GM in D5W MINI-BAG PLUS 50 ML IV SCH (09:00)
[2019-12-07] MEDS: FUROSEMIDE 40MG/4ML VIAL (J1940) IV SCH ×2 (09:00→15:53)
[2019-12-07] MEDS: DOXYCYCLINE HYCLATE 100MG TABLET PO SCH ×2 (09:00→21:01)
[2019-12-07] MEDS: NYSTATIN 500,000 U/5 ML SUSP UDC SS SCH ×3 (09:00→20:14)
[2019-12-07 11:49] VITALS: BP 131/67
--- NOTE | 2019-12-07 14:12 | IPNPDOC ---
Text Note Date of Service The patient was seen on 12/07/19. NOTE Subjective: Patient stated that he is doing better today. No any acute events overnight. Patient denies any fever or abdominal pain Objective: VITAL SIGNS: Please see below. GENERAL: Obese male HEENT: NCAT, anicteric sclera, LIDIA NECK: supple, plus JVD CARDIOVASCULAR EXAMINATION: NS1S2, irregularly irregular RESPIRATORY EXAMINATION: Diminished lung sounds bilaterally, rales at the base ABDOMINAL EXAMINATION: Mildly distended, nontender, no rebound EXTREMITIES: no cyanosis, clubbing, +1 mild edema SKIN: warm, no rashes. NEUROLOGICAL EXAMINATION: AAO x 3, no motor/sensory deficits, follows commands Patient is 84 years old male with past medical history of diastolic CHF, hypertension, type 2 diabetes, COPD, dementia presented hospital with increased shortness of breath. Patient was found to have sepsis due to left lower lobe pneumonia. Also patient developed atrial fibrillation with rapid ventricular rate and acute on chronic CHF exacerbation. During hospital stay patient was found to have SBP after paracentesis. Blood culture positive for Escherichia coli. Patient received treatment with broad-spectrum antibiotics with positive dynamics. Await for physical therapy clearance. Discharge home with ciprofloxacin as prophylaxis for SBP. Septic shock Resolved for now Secondary to LLL pneumonia superimposed with possible aspiration. There is also concern for SBP, given moderate ascites however his abdomen soft, nontender on palpation Patient had hypotension, leukocytosis, lactic acidosis on admission Patient received treatment with pressure support, blood pressure was stabilized 2 sets of blood culture shows Escherichia coli, pansensitive Patient received antibiotics meropenem and doxycycline. We added metronidazole IV. On 12/03/19 leukocytosis improved. On 12/04/19 paracentesis was done, ascitic fluid showed 1300 leukocytes. Gram stain negative. On 12/05/19 due to possible SBP we changed antibiotics to ceftriaxone 2 g in a day, on 12/06 DC metronidazole. 12/04/19 Procalcitonin of 5 DC vancomycin, patient is MRSA negative Left lobe pneumonia CT chest showed consolidations in the lingula and left lower lobe. Consistent with pneumonia. Incentive spirometry Continue antibiotics doxycycline and ceftriaxone to complete 10 days course Acute hypoxemic respiratory failure Resolved Secondary to community acquired pneumonia superimposed with acute CHF Continue oxygen Doppler ultrasound of lower extremities negative Elevated troponin Troponin trended down No acute ischemic changes on EKG, patient denied chest pain Most likely secondary to demand ischemia Acute diastolic CHF Patient had elevated BNP, plus JVD We initiated diuresis on patient, blood pressure stable Echo showed mildly depressed global left ventricular systolic function with mild global hypokinesis. There are some features of grade 2 left ventricular diastolic dysfunction, left ventricular end-diastolic pressure might be elevated. pt developed good urine output Continue IV Lasix New-onset of atrial fibrillation with rapid ventricular rate Most likely secondary to CHF exacerbation and sepsis Heart rate is under control Patient is in the sinus rhythm Xarelto Moderate ascites most likely 2/2 acute diastolic CHF superimposed with possible liver cirrhosis, patient had transaminitis with thrombocytopenia. However, CT abdomen showed normal liver. Abdomen nontender on palpation continue Lasix, Aldactone Will be discharged on ciprofloxacin for prophylaxis Acute kidney injury Improved Secondary to volume contraction secondary to sepsis Continue to monitor Electrolyte imbalance Replaced Thrombocytopenia Improved Continue to monitor No any signs of bleeding Depression Sertraline VS,Fishbone, I+O VS, Fishbone, I+O Laboratory Tests 12/06/19 16:40 12/07/19 06:00 Vital Signs Date Time Temp Pulse Resp B/P (MAP) Pulse Ox O2 Delivery O2 Flow Rate FiO2 12/07/19 11:49 97.1 82 18 131/67 (88) 91 Room Air 12/02/19 20:45 15.0 50 I&O- Last 24 Hours up to 6 AM 12/07/19 06:00 Intake Total 1260 ml Output Total 525 ml Balance 735 ml LISSY PADRON DO Dec 07, 2019 14:12
[2019-12-07] MEDS: SERTRALINE HCL 25 MG TABLET PO SCH (15:53)
[2019-12-07 15:57] VITALS: BP 116/72
[2019-12-07] MEDS: RIVAROXABAN 20 MG TAB (XARELTO) PO SCH (17:30)
--- NOTE | 2019-12-07 19:29 | ECGEPIP ---
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
[2019-12-07 20:00] VITALS: BP 123/58
[2019-12-08] VITALS: BP 116/55
[2019-12-08] MEDS: FUROSEMIDE 40MG/4ML VIAL (J1940) IV SCH
[2019-12-08] MEDS: IPRATROPIUM 0.5MG/ALBUTEROL 2.5MG INH SOL UD 3ML (DUONEB)(J7620) NEB SCH ×4 (02:00→20:08)
[2019-12-08 04:00] VITALS: BP 113/63
[2019-12-08 05:20] LABS: HEMATOCRIT 33.6 % (42.0-52.0); MEAN CORPUSCULAR HEMOGLOBIN 30.3 pg (27.0-33.0); MEAN CORPUSCULAR HGB CONC 35.7 g/dl (32.0-36.5); MEAN CORPUSCULAR VOLUME 84.8 fl (80.0-96.0); PLATELET COUNT, AUTOMATED 214 10^3/uL (150-450); RED BLOOD COUNT 3.96 10^6/uL (4.30-6.10); WHITE BLOOD COUNT 15.2 10^3/uL (4.0-10.0)
[2019-12-08] MEDS: SLF 3 ML SYR IV SCH ×3 (05:29→21:59)
[2019-12-08 05:46] LABS: CALCIUM LEVEL 8.3 MG/DL (8.8-10.2); CREATININE FOR GFR 1.49 MG/DL (0.70-1.30); GLOMERULAR FILTRATION RATE 47.8 (>35); MAGNESIUM LEVEL 1.8 MG/DL (1.8-2.4); POTASSIUM SERUM 3.8 MEQ/L (3.5-5.1)
[2019-12-08 08:00] VITALS: BP 104/67
[2019-12-08] MEDS: PANTOPRAZOLE 40MG VIAL (C9113 PER 1) IV SCH (08:31)
[2019-12-08] MEDS: METOCLOPRAMIDE INJ 10MG/2ML VIAL (J2765 PER 1) IV SCH ×3 (08:31→15:57)
[2019-12-08] MEDS: cefTRIAXone SOD 2 GM in D5W MINI-BAG PLUS 50 ML IV SCH (08:31)
[2019-12-08] MEDS: SERTRALINE HCL 25 MG TABLET PO SCH (08:32)
[2019-12-08] MEDS: MULTIVITAMINS/MINERALS THERAP 1 TAB PO SCH (08:32)
[2019-12-08] MEDS: METOPROLOL TART 12.5 MG PER 1/2 TAB PO SCH ×2 (08:32→21:59)
[2019-12-08] MEDS: MAGNESIUM GLUCONATE 500 MG TAB PO SCH (08:32)
[2019-12-08] MEDS: DOXYCYCLINE HYCLATE 100MG TABLET PO SCH ×2 (08:33→21:59)
[2019-12-08] MEDS: NYSTATIN 500,000 U/5 ML SUSP UDC SS SCH ×3 (08:33→21:00)
[2019-12-08] MEDS: FOLIC ACID 1 MG TAB PO SCH (08:33)
[2019-12-08] MEDS ORDERED: FUROSEMIDE 40 MG TAB PO SCH (09:00)
--- NOTE | 2019-12-08 10:03 | REP ---
REASON: Dyspnea. COMPARISON: Multiple, the latest 12/02/2019. The technique utilized in obtaining the radiograph has magnified the cardiac silhouette and accentuated the interstitial markings. Patchy left basilar opacity status quo. Elevation of the diaphragmatic surface of the right lung status quo. Cardiomegaly accentuated by technique, status quo. No change in the osseous structures. IMPRESSION: No significant change. Electronically Signed by Joe Velasquez DO 12/08/2019 10:16 A
[2019-12-08 11:59] VITALS: BP 128/64
[2019-12-08] MEDS: RIVAROXABAN 20 MG TAB (XARELTO) PO SCH (18:19)
[2019-12-08 18:47] LABS: CLOSTRIDIUM DIFFICILE PCR NEGATIVE (NEGATIVE)
[2019-12-08 20:00] VITALS: BP 132/68
[2019-12-09] MEDS: METOCLOPRAMIDE INJ 10MG/2ML VIAL (J2765 PER 1) IV SCH ×3 (00:21→15:21)
[2019-12-09] MEDS: IPRATROPIUM 0.5MG/ALBUTEROL 2.5MG INH SOL UD 3ML (DUONEB)(J7620) NEB SCH ×4 (00:51→20:07)
[2019-12-09 05:49] LABS: HEMATOCRIT 30.5 % (42.0-52.0); MEAN CORPUSCULAR HEMOGLOBIN 30.1 pg (27.0-33.0); MEAN CORPUSCULAR HGB CONC 36.1 g/dl (32.0-36.5); MEAN CORPUSCULAR VOLUME 83.6 fl (80.0-96.0); PLATELET COUNT, AUTOMATED 201 10^3/uL (150-450); RED BLOOD COUNT 3.65 10^6/uL (4.30-6.10); WHITE BLOOD COUNT 17.6 10^3/uL (4.0-10.0)
[2019-12-09 06:00] VITALS: BP 118/54
[2019-12-09 06:05] LABS: CALCIUM LEVEL 8.3 MG/DL (8.8-10.2); CREATININE FOR GFR 1.31 MG/DL (0.70-1.30); GLOMERULAR FILTRATION RATE 55.5 (>35); MAGNESIUM LEVEL 1.7 MG/DL (1.8-2.4); POTASSIUM SERUM 3.9 MEQ/L (3.5-5.1)
[2019-12-09] MEDS: SLF 3 ML SYR IV SCH ×3 (06:39→21:26)
[2019-12-09] MEDS: GASTROGRAFIN SOLUTION 30ML PO SCH ×2 (08:48→08:59)
[2019-12-09] MEDS: METOPROLOL TART 12.5 MG PER 1/2 TAB PO SCH ×2 (08:49→21:26)
[2019-12-09] MEDS: MEROPENEM INJ 1 GM in IV 1 EA IV SCH ×2 (08:50→15:21)
[2019-12-09] MEDS: SERTRALINE HCL 25 MG TABLET PO SCH (08:50)
[2019-12-09] MEDS: MAGNESIUM GLUCONATE 500 MG TAB PO SCH (08:50)
[2019-12-09] MEDS: MULTIVITAMINS/MINERALS THERAP 1 TAB PO SCH (08:50)
[2019-12-09] MEDS: DOXYCYCLINE HYCLATE 100MG TABLET PO SCH ×2 (08:50→21:25)
[2019-12-09] MEDS: FOLIC ACID 1 MG TAB PO SCH (08:50)
[2019-12-09] MEDS: NYSTATIN 500,000 U/5 ML SUSP UDC SS SCH ×3 (08:51→21:00)
[2019-12-09] MEDS: PANTOPRAZOLE 40MG VIAL (C9113 PER 1) IV SCH (08:51)
[2019-12-09] MEDS ORDERED: MAG SULF 1GM/100ML (MAG RUN) 1 GM in IV 1 EA IV ONE (09:00)
--- NOTE | 2019-12-09 10:07 | IPN ---
DATE: 12/08/2019 Patient denies any palpitations, lightheadedness, dizziness, shortness of breath, chest pain, pressure, tightness. Patient's atrial fibrillation has been irregular, currently 81. Afebrile with no complaints of chills, but complains of abdominal discomfort with some nausea. No vomiting. Decreased oral intake. Patient has no diarrhea. Afebrile, temperature 97.7. Pulse 81, respiratory rate 20, blood pressure 128/64, 88% on room air. Lungs: Diminished breath sounds. Crackles at the left base. Heart: S1, S2, sinus rhythm. Abdomen is obese, soft. Slightly tender in bilateral lower quadrants. No rebound or guarding. Extremities: No cyanosis or clubbing. Patient has 1+ pitting edema bilaterally. LABORATORY DATA: White count 15, hemoglobin 12, hematocrit 33, platelet count 214. Sodium 140, potassium 3.8, chloride 103, bicarbonate 30, BUN 23, creatinine 1.49, glucose 129, magnesium of 1.8. Blood culture: Clostridium perfringens, Escherichia (E) coli. CT abdomen and pelvis 12/01/2019: Fusiform infrarenal abdominal aortic aneurysm. Moderate ascites right colon with possible colitis. Chest x-ray: No significant change. Left basal opacity. Cardiomegaly. No change in osseous structure. Elevation in diaphragmatic surface of the right lung, status quo. HOSPITAL MEDICATIONS: - Lasix- sertraline- metoprolol- magnesium gluconate- Xarelto- nystatin- Reglan- doxycycline- ceftriaxone DuoNebs- folic acid- multivitamin- Protonix- Tylenol milk of magnesia ASSESSMENT AND PLAN: 84-year-old admitted on 12/01/2019 due to worsening shortness of breath, dry cough for 2 weeks, found to be in atrial fibrillation with rapid ventricular response (RVR) with rate of 140-150, white count of 13,000, chest x-ray showing left lower lobe pneumonia. Chest CT shows consolidation in the lingula left lower lobe. CT abdomen and pelvis showed right colonic colitis. Patient was empirically started on vancomycin, meropenem due to penicillin allergy. COVID testing was negative. Patient was initially hypovolemic on exam, received 2 liters of intravenous (IV) fluids, and was initially placed on Levophed drip in the emergency room (ER). Improved and had been titrated off Levophed. Patient had acute hypoxic respiratory failure, requiring supplemental oxygen. Patient then developed fluid overload and was started on IV Lasix with admission weight of 100.3 kg and current weight of 99.8 kg. Echocardiogram on 12/01/2019 shows ejection fraction (EF) of 40-45%, small pericardial effusion, mild tricuspid regurgitation, mild pulmonary hypertension, trace mitral regurgitation (MR). CURRENT ACTIVE ISSUES ARE FOLLOWS: 1. Left lower lobe pneumonia, status post septic shock, requiring Levophed drip on admission. Improved on IV fluids. Then developed fluid overload and heart failure. Two sets of blood cultures showed E. coli as well as Clostridium perfringens. Initially on IV vancomycin, meropenem. Changed to meropenem, doxycycline. Added IV Flagyl. Currently on IV ceftriaxone and doxycycline. 2. Acute hypoxemic respiratory failure secondary to pneumonia and congestive heart failure (CHF). Due to acute kidney injury, patient's Lasix has been discontinued. He is improving from his pneumonia and has been on antibiotics to complete a 10-day course on doxycycline and ceftriaxone. 3. Acute diastolic heart failure exacerbation. Patient has ejection fraction of 40-45% with depressed/low ejection fracture. Currently on IV Lasix but discontinued due to acute kidney injury. 4. New onset atrial fibrillation with rapid ventricular response. Rate controlled on Xarelto currently. 5. Moderate ascites, most likely secondary to congestive heart failure with congestive liver. Will resume patient's Lasix in the morning once creatinine has improved back to baseline. MTDD
--- NOTE | 2019-12-09 10:42 | REP ---
Clinical: Abdominal pain and distension. Technique: Axial noncontrast images from the lung bases to the pubic symphysis with coronal and sagittal re-formations. Comparison: 12/01/2019 Findings: Lung bases demonstrate left lower lobe and lingular consolidations/atelectasis with small pleural effusion as well as subtle infiltrate involving the basilar right upper lobe. There is a large somewhat vague hypodense area containing gas possibly involving the left lobe of the liver extending to/from the region of the annamaria hepatis (images 41 - 60). This is suspicious for a large hepatic abscess. 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 As such, the stomach appears to empty into small bowel which remains along the anterior left mid abdomen and a normal distal stomach/duodenum are not definitively identifiable. There is no evidence for bowel obstruction. A moderate amount of ascites is again noted. Spleen, pancreas, bilateral adrenal glands and kidneys are relatively normal / stable. 2 mm nonobstructing left renal calculus incidentally noted. Evidence of prior cholecystectomy as well as ventral hernia repair and gastric / enteric surgery noted. Pelvis demonstrates normal bladder and prostatomegaly. Infrarenal abdominal aortic aneurysm remains stable along with extensive atherosclerotic disease. Musculoskeletal structures demonstrate age-related degenerative changes. Impression: 1. Findings are highly suspicious for hepatic abscess involving the left hepatic lobe. Perihepatic and moderate ascites noted along with inflammatory stranding through the upper abdomen. No free air or bowel obstruction. 2. Evidence for prior gastric/enteric surgery, cholecystectomy, ventral hernia repair. 3. Stable infrarenal aortic aneurysm. 4. Further chronic findings as above. Electronically Signed by Param Chakraborty MD 12/09/2019 10:33 A
--- NOTE | 2019-12-09 13:51 | IPN ---
DATE: 12/09/2019 Patient complains of right lower quadrant abdominal discomfort, described as achy, rated at 4/10. He has decreased appetite this morning, did not want to eat any of his solid food, was drinking fine with orange juice and coffee. He says that he has been urinating more frequently today, but is having a lot of generalized weakness when walking from the bedroom to the bathroom and wanted some assistance, but is concerned that he is urinating all over his gown onto the floor before he reaches the bathroom with help. He is not wanting to use the urinal, he does not want a bedside commode, he wants assistance immediately when he has to go urinate, but nursing staff may be a little bit busy and unable to get to him quickly. Patient feels frustrated this morning, says that he still does not feel well, very fatigued but sleeping well. No fever or chills overnight. Patient's white count is still increased to 17,000 despite ceftriaxone, which covers both Clostridium and Escherichia (E) coli on cultures. Repeat urinalysis on 12/01/2019 showed no growth with complaints of dysuria. Patient's UA is to be checked today. PHYSICAL EXAM: Temperature 98.4, pulse 74, respiratory rate 20, blood pressure 118/54, 92% on room air. Generally, patient is awake, alert, oriented to person and place, answering questions appropriately. No respiratory distress. Able to speak in full sentences. No conversational dyspnea. No jugular venous distention (JVD), no thyromegaly. Lungs are diminished but clear to auscultation. No wheezing, rales, or rhonchi. Heart: S1, S2, sinus rhythm. Abdomen is soft, tender in the right lower quadrant. No rebound, guarding. Positive bowel sounds. No hepatosplenomegaly. Extremities: Trace edema. White count 17, hemoglobin 11, hematocrit 30, platelet count 201. Sodium 137, potassium 3.9, chloride 104, bicarbonate 27, BUN 25, creatinine 1.3, glucose of 134, magnesium of 1.7. Microbiology has been reviewed. Blood culture negative. Body fluid, abdominal fluid reviewed. Chest x-ray 12/08/2019: No significant change. Left basilar opacity. ASSESSMENT AND PLAN: This is an 84-year-old male who was admitted on 12/01/2019 with complaints of worsening shortness of breath and dry cough for about 2 weeks. Patient was found to have a left lower lobe pneumonia with sepsis requiring Levophed drip, which was weaned off after fluid hydration, status post imipenem, cilastatin. Patient was continued on ceftriaxone, was found to have blood culture positive for Clostridium perfringens and Escherichia (E) coli. IMPRESSION: Colitis. Currently on ceftriaxone. Left lower lobe community-acquired pneumonia. Patient was on ceftriaxone with worsening white count; therefore, he has been changed to meropenem, renal dosing. Acute kidney injury secondary to sepsis from pneumonia and colitis, decreased oral intake, status post intravenous (IV) fluids. Acute hypoxic respiratory failure, improved. Initially due to pneumonia and diastolic heart failure, which has been corrected with Lasix. However, the patient developed acute kidney injury and Lasix had to be discontinued and patient had a trial of IV fluids with improved creatinine. Troponin leak secondary to demand-mediated ischemia from colitis, pneumonia, respiratory failure. Diastolic heart failure, currently euvolemic. Strict intake and output, daily weighs, and monitor for respiratory distress. Atrial fibrillation with rapid ventricular response (RVR), currently rate controlled, on metoprolol 12.5 mg twice a day and Xarelto for anticoagulation. Deconditioning. Physical therapy (PT), occupational therapy (OT). Obesity. Body mass index (BMI) of 31.3, complicating care. MTDD
[2019-12-09 14:00] VITALS: BP 104/67
[2019-12-09] MEDS: RIVAROXABAN 20 MG TAB (XARELTO) PO SCH (17:34)
[2019-12-09] MEDS: ACETAMINOPHEN TAB 650MG DOSE (2X325MG) PO PRN (21:26)
[2019-12-09 22:00] VITALS: BP 103/69
[2019-12-10] MEDS: METOCLOPRAMIDE INJ 10MG/2ML VIAL (J2765 PER 1) IV SCH ×4 (00:23→23:55)
[2019-12-10] MEDS: MEROPENEM INJ 1 GM in IV 1 EA IV SCH ×4 (00:23→23:55)
[2019-12-10] MEDS: IPRATROPIUM 0.5MG/ALBUTEROL 2.5MG INH SOL UD 3ML (DUONEB)(J7620) NEB SCH ×4 (01:58→19:50)
[2019-12-10] MEDS: SLF 3 ML SYR IV SCH ×3 (05:09→21:23)
[2019-12-10 05:54] LABS: HEMATOCRIT 29.5 % (42.0-52.0); HEMOGLOBIN 10.7 g/dl (13.5-17.5); MEAN CORPUSCULAR HEMOGLOBIN 30.1 pg (27.0-33.0); MEAN CORPUSCULAR HGB CONC 36.3 g/dl (32.0-36.5); MEAN CORPUSCULAR VOLUME 83.1 fl (80.0-96.0); PLATELET COUNT, AUTOMATED 222 10^3/uL (150-450); RED BLOOD COUNT 3.55 10^6/uL (4.30-6.10); WHITE BLOOD COUNT 17.4 10^3/uL (4.0-10.0)
[2019-12-10 06:00] VITALS: BP 110/58
[2019-12-10 06:21] LABS: CALCIUM LEVEL 8.2 MG/DL (8.8-10.2); CREATININE FOR GFR 1.24 MG/DL (0.70-1.30); GLOMERULAR FILTRATION RATE 59.1 (>35); MAGNESIUM LEVEL 1.9 MG/DL (1.8-2.4); POTASSIUM SERUM 4.1 MEQ/L (3.5-5.1)
[2019-12-10] MEDS: FOLIC ACID 1 MG TAB PO SCH (08:06)
[2019-12-10] MEDS: DOXYCYCLINE HYCLATE 100MG TABLET PO SCH (08:06)
[2019-12-10] MEDS: MULTIVITAMINS/MINERALS THERAP 1 TAB PO SCH (08:06)
[2019-12-10] MEDS: SERTRALINE HCL 25 MG TABLET PO SCH (08:06)
[2019-12-10] MEDS: METOPROLOL TART 12.5 MG PER 1/2 TAB PO SCH ×2 (08:07→21:00)
[2019-12-10] MEDS: MAGNESIUM GLUCONATE 500 MG TAB PO SCH (08:07)
[2019-12-10] MEDS: PANTOPRAZOLE 40MG VIAL (C9113 PER 1) IV SCH (08:07)
[2019-12-10] MEDS: NYSTATIN 500,000 U/5 ML SUSP UDC SS SCH ×3 (08:08→21:00)
[2019-12-10 14:00] VITALS: BP 109/55
[2019-12-10] MEDS: ACETAMINOPHEN TAB 650MG DOSE (2X325MG) PO PRN ×2 (14:08→21:24)
[2019-12-10] MEDS: D5W/0.45% SODIUM CHLORIDE 1,000 ML IV SCH (15:56)
[2019-12-10 22:00] VITALS: BP_SYST 106; BP_SYST 96; BP_DIAS 42
[2019-12-11] MEDS: IPRATROPIUM 0.5MG/ALBUTEROL 2.5MG INH SOL UD 3ML (DUONEB)(J7620) NEB SCH ×4 (02:00→20:17)
[2019-12-11] MEDS: SLF 3 ML SYR IV SCH ×2 (04:19→14:00)
[2019-12-11] MEDS: D5W/0.45% SODIUM CHLORIDE 1,000 ML IV SCH ×2 (04:20→18:40)
[2019-12-11 06:00] VITALS: BP_SYST 110; BP_SYST 96; BP_DIAS 41; BP_DIAS 52
[2019-12-11 06:30] LABS: CALCIUM LEVEL 7.5 MG/DL (8.8-10.2); CREATININE FOR GFR 1.33 MG/DL (0.70-1.30); GLOMERULAR FILTRATION RATE 54.5 (>35); MAGNESIUM LEVEL 1.9 MG/DL (1.8-2.4); POTASSIUM SERUM 4.1 MEQ/L (3.5-5.1)
[2019-12-11 06:32] LABS: INR 1.77; PROTHROMBIN TIME 20.4 SECONDS (11.8-14.0)
[2019-12-11 06:33] LABS: PARTIAL THROMBOPLASTIN TIME 36.9 SECONDS (25.0-38.4)
[2019-12-11 06:35] LABS: HEMATOCRIT 28.2 % (42.0-52.0); HEMOGLOBIN 10.2 g/dl (13.5-17.5); MEAN CORPUSCULAR HGB CONC 36.2 g/dl (32.0-36.5); MEAN CORPUSCULAR VOLUME 82.9 fl (80.0-96.0); PLATELET COUNT, AUTOMATED 191 10^3/uL (150-450); WHITE BLOOD COUNT 11.9 10^3/uL (4.0-10.0)
[2019-12-11] MEDS: PANTOPRAZOLE 40MG VIAL (C9113 PER 1) IV SCH (08:07)
[2019-12-11] MEDS: MEROPENEM INJ 1 GM in IV 1 EA IV SCH ×3 (08:07→23:28)
[2019-12-11] MEDS: MULTIVITAMINS/MINERALS THERAP 1 TAB PO SCH (08:08)
[2019-12-11] MEDS: FOLIC ACID 1 MG TAB PO SCH (08:08)
[2019-12-11] MEDS: METOPROLOL TART 12.5 MG PER 1/2 TAB PO SCH ×2 (08:08→20:49)
[2019-12-11] MEDS: SERTRALINE HCL 25 MG TABLET PO SCH (08:08)
[2019-12-11] MEDS: MAGNESIUM GLUCONATE 500 MG TAB PO SCH (08:08)
[2019-12-11] MEDS: METOCLOPRAMIDE INJ 10MG/2ML VIAL (J2765 PER 1) IV SCH (08:08)
[2019-12-11] MEDS: NYSTATIN 500,000 U/5 ML SUSP UDC SS SCH ×3 (08:09→20:49)
--- NOTE | 2019-12-11 13:53 | IPN ---
DATE OF SERVICE: 12/10/2019 The patient was febrile at 100.1 at [address] abdomen and pelvis shows a large liver abscess. The patient is not giving consent to proceed with CT-guided drainage as recommended by general surgeon certified nurse practitioner, Dr. Guerrero, and would like to think about it further. The patient complains of abdominal pain, right upper quadrant. No nausea or vomiting. "I don't feel good." No fever. No chills. Current temperature 98.4, pulse 77, respiratory rate 20, blood pressure 110/58, 91% on room air. Generally, the patient is awake, alert, oriented to person and place and time, answering questions appropriately. No jugular venous distention (JVD), no thyromegaly, no pallor. Lungs are clear to auscultation. No wheezing or rales. Heart: S1, S2, sinus rhythm. Abdomen is soft, tender in the right lower quadrant. No rebound, guarding. Obese. Extremities: Chronic trace edema. White count 17.4, hemoglobin 10, hematocrit 29, platelet count 222. Sodium 138, potassium 4, chloride 105, bicarbonate 26, BUN 27, creatinine 1.24, glucose of 131. Repeat blood cultures times two, no growth after [address] abdomen and pelvis: Large hyperdense area containing gas, possibly involving left lobe of the liver extending to the annamaria hepatis, suspicious for a large hepatic abscess. Prior Lindsey-en-Y procedure with gastric bypass. Moderate amount of ascites is again noted, 2 mm nonobstructing left renal calculus, prior cholecystectomy. Intraabdominal aortic aneurysm is stable, along with extensive atherosclerotic disease. ASSESSMENT AND PLAN: This is an 84-year-old male admitted on 12/01/2019 with complaints of 2 weeks of a dry cough, paroxysmal nocturnal dyspnea (PND) orthopnea, lower extremity edema, a 15-pound unintentional weight loss. He was found to have new-onset atrial fibrillation (AFib) with rapid ventricular response (RVR) 140-150, white count of 13, lactic acid of 7.9 and was admitted to intensive care unit (ICU) for sepsis secondary to left lower lobe pneumonia. The patient initially was started on vancomycin, meropenem, given his PENICILLIN allergy. Blood cultures were obtained. He was given Levophed in the emergency room (ER); and after 2 liters of intravenous (IV) fluids responded, and Levophed was discontinued. Due to abdominal complaints, diagnostic paracentesis was obtained. He was continued on antibiotics with ceftriaxone after growing Clostridium perfringens and Escherichia (E) coli on blood culture on 12/01/2019. Repeat blood cultures remain negative, but white count continued to increase to 17.6. Sputum culture on 12/08/2019 showed no organisms. The patient continued to complain of abdominal pain, and repeat CT shows a possible liver abscess. IMPRESSION: 1. Septic shock, resolved, secondary to left lower lobe pneumonia. The patient was given intravenous (IV) ceftriaxone. Had E. coli and Clostridium perfringens on two sets of blood cultures. He did receive meropenem and doxycycline and IV Flagyl previously. Due to worsening white count, he was transitioned to meropenem on 12/09/2019 with new findings of a possible liver abscess. 2. Left lower lobe pneumonia. Completed antibiotics, meropenem, doxycycline, and Flagyl. Then, subsequently IV ceftriaxone. Currently, now on meropenem for a liver abscess. 3. Acute hypoxic respiratory failure. Back to baseline. Secondary to community-acquired pneumonia and heart failure. Euvolemic and developed acute kidney injury with diuresis. 4. Acute kidney injury, resolved with IV fluids and discontinuation of diuretics. 5. Acute diastolic heart failure. Previously diuresed but developed acute kidney injury. Currently, euvolemic and off diuretics. 6. New-onset of atrial fibrillation with rapid ventricular response. Most likely secondary to pneumonia and congestive heart failure (CHF) exacerbation. Currently, back to sinus rhythm. Not requiring any rate-control medications. He was on Xarelto but held due to need for CT-guided drainage of a liver abscess. On metoprolol 12.5 mg twice a day. Rate controlled with holding parameters. 7. Depression. On sertraline. 8. Obesity. Body mass index (BMI) of 31.8, complicating his care. 9. Questionable large liver abscess with worsening white count. Blood culture with Clostridium perfringens and E. coli on blood cultures. Currently, still contemplating whether he should proceed with CT-guided drainage. Currently, on broad-spectrum antibiotics.c disposition: pt's son has been contacted to convince the patient to be treated. Due to worsening white count, low grade fever, pt needs to have liver abscess drained. held AC and scheduled for Ct-guided liver drainage, but can be cancelled if pt cannot be swayed to be treated for a cureable condition. continue IV merrem. await defervescenced, and improved wbc.2-3 days. MTDD
[2019-12-11] MEDS ORDERED: LIDOCAINE 1% MDV 20ML VIAL As Ordered ONE (16:31)
[2019-12-11] MEDS ORDERED: fentaNYL 100 MCG/2 ML INJECTION (J3010) As Ordered ONE (16:33)
[2019-12-11] MEDS ORDERED: MIDAZOLAM INJ 2MG/2ML VIAL (J2250 PER 1MG) As Ordered ONE (16:33)
[2019-12-11] MEDS ORDERED: diphenhydrAMINE 50MG/ML VIAL (J1200) As Ordered ONE (16:33)
--- NOTE | 2019-12-11 17:34 | POST-OPPD ---
Postoperative Procedure Note Date Of Procedure: December 11, 2019 Time Of Procedure: 17:31 PREOPERATIVE DIAGNOSIS: liver abscess POSTOPERATIVE DIAGNOSIS: same FINDINGS: same PROCEDURE: 10 F drain placed. sample sent. flush drain daily with 10 ml sterile saline. Patient needs to go home with saline syringes to flush drain. Follow up in IR clinic in 6 weeks. SURGEON: анна ANESTHESIA: mod sed SPECIMENS: sent ESTIMATED BLOOD LOSS: < 5 ml COMPLICATIONS: none POSTOPERATIVE CONDITION: stable RHODA ARRIAGA MD December 11, 2019 17:34
--- NOTE | 2019-12-11 20:30 | IPN ---
DATE: 12/11/2019 Sidney is seen on [facility] [place]. He is on the hospitalist service, patient of Dr. Abarca. Complicated hospitalization. Found to have Escherichia (E) coli and Clostridium bacteremia that has grown out extended-spectrum beta lactamase (ESBL) klebsiella from his sputum. He now has what appears to be a liver abscess on CT of the abdomen and pelvis, scheduled for drainage today. Denies any fevers, chills. Abdominal pain seems to be better. His pressures have been soft, in 90-100 range. He is currently on meropenem 1 gram every 8 hours. His last dose of Xarelto was about 36 hours ago. PHYSICAL EXAMINATION: 103//52, pulse 80, 98.4 degrees. GENERAL APPEARANCE: Looks chronically ill. Lying in bed. Alert, conversant. LUNGS: Clear. HEART: Regular rate and rhythm. ABDOMEN: Soft, slight tender, right side. No costovertebral angle (CVA) tenderness. No peripheral edema. LABORATORY DATA: Sodium 140, potassium 4.1, BUN 28, creatinine 1.3, glucose 156. White count 11.9, hemoglobin 10.2, platelets 192. Sputum grew out ESBL klebsiella pneumonia. IMPRESSION: 1. Liver abscess, scheduled for CT-guided drainage of this today. Spoke to Dr. Kline informally. She indicates this will be performed by the staff radiologist. Order has already been placed for needle placement. 2. Klebsiella (ESBL) pneumonia. Is on meropenem for this, which is his second full day of this. 3. Acute kidney injury superimposed on chronic kidney disease. Renal function is back to baseline. GFR is in the 50s. 4. Acute hypoxic respiratory failure, improved with diuresis. 5. Atrial fibrillation. His rate is controlled on metoprolol. Xarelto is on hold pending liver biopsy. Patient was seen without benefit of yesterday's rounding note, which has not been transcribed.
[2019-12-11 22:00] VITALS: BP 118/62
[2019-12-12] MEDS: IPRATROPIUM 0.5MG/ALBUTEROL 2.5MG INH SOL UD 3ML (DUONEB)(J7620) NEB SCH ×4 (02:09→19:12)
[2019-12-12 05:39] VITALS: BP 114/65
[2019-12-12 06:40] LABS: CALCIUM LEVEL 7.7 MG/DL (8.8-10.2); CREATININE FOR GFR 1.23 MG/DL (0.70-1.30); GLOMERULAR FILTRATION RATE 59.7 (>35)
[2019-12-12 06:55] LABS: HEMATOCRIT 28.8 % (42.0-52.0); HEMOGLOBIN 10.4 g/dl (13.5-17.5); MEAN CORPUSCULAR HEMOGLOBIN 29.9 pg (27.0-33.0); MEAN CORPUSCULAR HGB CONC 36.1 g/dl (32.0-36.5); MEAN CORPUSCULAR VOLUME 82.8 fl (80.0-96.0); PLATELET COUNT, AUTOMATED 193 10^3/uL (150-450); RED BLOOD COUNT 3.48 10^6/uL (4.30-6.10)
[2019-12-12] MEDS: PANTOPRAZOLE 40MG VIAL (C9113 PER 1) IV SCH (08:59)
[2019-12-12] MEDS: SERTRALINE HCL 25 MG TABLET PO SCH (08:59)
[2019-12-12] MEDS: NYSTATIN 500,000 U/5 ML SUSP UDC SS SCH ×4 (08:59→20:55)
[2019-12-12] MEDS: MULTIVITAMINS/MINERALS THERAP 1 TAB PO SCH (08:59)
[2019-12-12] MEDS: FOLIC ACID 1 MG TAB PO SCH (08:59)
[2019-12-12] MEDS: MAGNESIUM GLUCONATE 500 MG TAB PO SCH (08:59)
[2019-12-12] MEDS: METOPROLOL TART 12.5 MG PER 1/2 TAB PO SCH ×2 (09:00→20:54)
[2019-12-12] MEDS: MEROPENEM INJ 1 GM in IV 1 EA IV SCH ×2 (09:00→16:30)
--- NOTE | 2019-12-12 12:11 | IPNPDOC ---
Date Seen The patient was seen on 12/12/19. Progress Note Pt is an 84yM with PMH of AMyles solo with RVR, DM 2 with diabetic retinopathy, PUD, COPD not dependent on oxygen, mild dementia, CK D stage III, AAA without rupture, history of pericardial effusion status post pericardial window, chronic diastolic heart failure, spinal stenosis with DJD, HTN , presenting with encephalopathy secondary to Escherichia (E) coli and Clostridium bacteremia and PNA growning extended-spectrum beta lactamase (ESBL) klebsiella from his sputum. CT imaging was performed and he was found to have liver abscess, s/p 10cc abscess drainage 12/10/19 POD#1. No overnight events, discussed with patient in regards to rehabilitation, PT eval does recommend rehabilitation. PHYSICAL EXAMINATION: VITAL SIGNS: Please see below. GENERAL: No distress HEENT: Normocephalic, atraumatic, moist mucous membranes NECK: Supple CARDIOVASCULAR EXAMINATION: S1, S2 RESPIRATORY EXAMINATION: CTAB ABDOMINAL EXAMINATION: Soft, slight tenderness on RUQ, drainage of bilious fluid, nondistended, positive bowel sounds EXTREMITIES: trace edema SKIN: No rash NEUROLOGICAL EXAMINATION: Awake PSYCHIATRIC EXAMINATION: Calm and cooperative, flat affect Pt is an 84yM with PMH of A. germania with RVR, DM 2 with diabetic retinopathy, PUD, COPD not dependent on oxygen, mild dementia, CK D stage III, AAA without rupture, history of pericardial effusion status post pericardial window, chronic diastolic heart failure, spinal stenosis with DJD, HTN , presenting with encephalopathy secondary to Escherichia (E) coli and Clostridium bacteremia and PNA growning extended-spectrum beta lactamase (ESBL) klebsiella from his sputum. CT imaging was performed and he was found to have liver abscess, s/p 10cc abscess drainage 12/10/19 POD#1. #Liver abscess POD#1 s/p liver drainage, doing well, continue meropenem at this time, PT eval for deconditioning with recommendations for rehabilitation #Klebsiella (ESBL) pneumonia, leukocytosis, improving, On Day 4 of meropenem, consult ID for recommendations for antibiotic on discharge #Acute kidney injury superimposed on chronic kidney disease 3, resolved #Acute hypoxic respiratory failure, improved with diuresis, stable #Atrial fibrillation. His rate is controlled on metoprolol, will need to verify home NOAC, Xarelto was on hold for liver biopsy, CHADSVASC >2. #Anemia: stable, continue to monitor H&H DVT ppx: SCD, plan to resume home NOAC DNR/DNI Disposition: rehab 12/13/19, f/u with PCP and ID for Abx for dc 32 minutes were spent in care coordination VS, I&O, 24H, Fishbone Vital Signs/I&O Vital Signs Date Time Temp Pulse Resp B/P (MAP) Pulse Ox O2 Delivery O2 Flow Rate FiO2 12/12/19 09:00 79 114/65 12/12/19 05:39 97.8 18 89 Room Air 12/11/19 17:15 2 I&O- Last 24 Hours up to 6 AM 12/12/19 06:00 Intake Total 1400 ml Output Total 880 ml Balance 520 ml Laboratory Data 24H LABS Laboratory Tests 2 12/12/19 06:06: Nucleated Red Blood Cells % (auto) 0.0, Anion Gap 6L, Glomerular Filtration Rate 59.7, Calcium Level 7.7L, Magnesium Level 2.0 CBC/BMP Laboratory Tests 12/12/19 06:06 Microbiology Microbiology 12/11/19 Gram Stain - Final, Resulted 12/11/19 Abscess Culture, Resulted Pending 12/09/19 Blood Culture - Preliminary, Resulted No Growth after 72 hours. All specime... 12/09/19 Blood Culture - Preliminary, Resulted No Growth after 72 hours. All specime... 12/08/19 Gram Stain - Final, Complete 12/08/19 Sputum Culture - Final, Complete Klebsiella Pneumoniae Esbl 12/04/19 Gram Stain - Final, Complete 12/04/19 Body Fluid Culture - Final, Complete 12/02/19 Blood Culture - Final, Complete NO GROWTH AFTER 5 DAYS 12/02/19 Blood Culture - Final, Complete NO GROWTH AFTER 5 DAYS AGATHA LARA MD December 12, 2019 12:11
[2019-12-12 14:00] VITALS: BP 107/58
[2019-12-12] MEDS: MICAFUNGIN SODIUM 100 MG in D5W MINI-BAG PLUS 100 ML IV SCH (18:55)
[2019-12-12 22:00] VITALS: BP 101/48
[2019-12-13] MEDS: MEROPENEM INJ 1 GM in IV 1 EA IV SCH ×4 (00:40→23:07)
[2019-12-13] MEDS: IPRATROPIUM 0.5MG/ALBUTEROL 2.5MG INH SOL UD 3ML (DUONEB)(J7620) NEB SCH ×4 (01:35→19:22)
[2019-12-13 06:00] VITALS: BP 117/68
[2019-12-13 06:12] LABS: HEMATOCRIT 30.5 % (42.0-52.0); MEAN CORPUSCULAR HEMOGLOBIN 29.6 pg (27.0-33.0); MEAN CORPUSCULAR HGB CONC 36.1 g/dl (32.0-36.5); MEAN CORPUSCULAR VOLUME 82.2 fl (80.0-96.0); PLATELET COUNT, AUTOMATED 213 10^3/uL (150-450); RED BLOOD COUNT 3.71 10^6/uL (4.30-6.10); WHITE BLOOD COUNT 8.1 10^3/uL (4.0-10.0)
[2019-12-13 06:30] LABS: BLOOD UREA NITROGEN 28 MG/DL (7-18); CALCIUM LEVEL 7.8 MG/DL (8.8-10.2); CARBON DIOXIDE LEVEL 28 MEQ/L (21-32); CHLORIDE LEVEL 108 MEQ/L (98-107); CREATININE FOR GFR 1.16 MG/DL (0.70-1.30); GLOMERULAR FILTRATION RATE > 60.0 (>35); GLUCOSE, FASTING 121 MG/DL (70-100); POTASSIUM SERUM 4.1 MEQ/L (3.5-5.1); SODIUM LEVEL 140 MEQ/L (136-145)
[2019-12-13] MEDS: FOLIC ACID 1 MG TAB PO SCH (08:13)
[2019-12-13] MEDS: SERTRALINE HCL 25 MG TABLET PO SCH (08:13)
[2019-12-13] MEDS: MAGNESIUM GLUCONATE 500 MG TAB PO SCH (08:14)
[2019-12-13] MEDS: MULTIVITAMINS/MINERALS THERAP 1 TAB PO SCH (08:14)
[2019-12-13] MEDS: METOPROLOL TART 12.5 MG PER 1/2 TAB PO SCH ×2 (08:20→20:10)
[2019-12-13] MEDS: PANTOPRAZOLE 40MG VIAL (C9113 PER 1) IV SCH (08:20)
[2019-12-13] MEDS: NYSTATIN 500,000 U/5 ML SUSP UDC SS SCH ×2 (08:20→16:00)
[2019-12-13] MEDS ORDERED: LIDOCAINE 1% MDV 20ML VIAL As Ordered ONE (11:49)
[2019-12-13] MEDS ORDERED: SODIUM CHLORIDE 0.9% INJ 10 ML SYR IV PRN (13:30)
--- NOTE | 2019-12-13 13:30 | REP ---
IR Liver abscess drain placement using CT guidance. IR Moderate sedation. Clinical information: Left hepatic lobe abscess. Pain. Physician: Dr. Kline. Procedure: The patient was advised of the benefits, risks and alternatives of the procedure and informed consent was obtained. The time-out was performed with verification of the patient's name, MRN, site of procedure and type of procedure to be performed. Moderate sedation was performed by the physician including the presence of an independent trained observer that assisted in monitoring the patient's level of consciousness and physiologic status. Following the administration of Versed and Fentanyl, the physician spent 45 minutes of continuous face to face time with the patient. The patient was placed in the supine position on the CT gantry and a scan was performed through the region of interest. This demonstrates a left hepatic lobe collection containing fluid and air. After marking the overlying skin, the patient was prepped and draped in the usual sterile fashion. The soft tissues overlying the puncture site were anesthetized with lidocaine. Through this anesthetized region, an 18 gauge Chiba needle was advanced into the collection under intermittent CT guidance. Brown fluid was aspirated. An Amplatz wire was advanced into the fluid collection over which a 10-Portuguese APDL was advanced. A fluid specimen was aspirated. Subsequent localized CT scanning was performed to confirm catheter location. The catheter was then locked, sutured in position and placed to gravity drainage. The specimen was labeled with the patient's name, medical record number and sent to the lab for further analysis. The patient tolerated the procedure well and was returned to PRU in stable condition. EBL: Less than 5 ml. Complications: None. Conclusion: 1. CT demonstrates left hepatic lobe abscess. 2. Successful CT guided liver abscess drain placement. Catheter requires flushing with 10 ml sterile saline every day. Patient to follow up in IR in 6 weeks for ongoing drain management. Thank you this referral. Electronically Signed by Shawanda Kline MD 12/13/2019 01:29 P
[2019-12-13 14:00] VITALS: BP 110/62
--- NOTE | 2019-12-13 14:05 | CR ---
INFECTIOUS DISEASE CONSULTATION NOTE DATE OF CONSULTATION: 12/12/2019 ATTENDING PHYSICIAN: Moisés Brown MD REASON FOR CONSULTATION: Extended-spectrum beta-lactamase (ESBL) Klebsiella pneumoniae and liver abscess. HISTORY OF PRESENT ILLNESS: The patient is an 84-year-old male who presented to the hospital on 12/01/2019 after standing up and passing out. The patient was found to be atrial fibrillation with rapid ventricular response and was found to be septic with cause thought to be either pneumonia or colitis. The patient initially had blood cultures drawn on 12/01/2019, which both grew out Clostridium perfringens and Escherichia (E) coli. The patient was started on intravenous (IV) meropenem, as well as IV doxycycline. The patient was on IV meropenem and doxycycline from 12/01/2019 to 12/04/2019 when the patient was switched to IV ceftriaxone and by mouth doxycycline until 12/07/2019. On 12/08/2019, the patient had a sputum culture that came back positive for extended-spectrum beta-lactamase positive Klebsiella pneumoniae, and the patient was started back on IV meropenem which he remains on at this time. The patient was improving until about 12/07/2019 when the patient's white count began to spike back up. The patient had imaging of his abdomen on 12/09/2019 which showed a liver abscess which was drained on 12/11/[address] Kline. The cultures of that are still pending at this time. The patient says he feels better today except for being nauseous. He has not really been able to get up and move around since his hospitalization, although today he was able to stand up and walk to and from the bathroom with limited difficulty. PAST MEDICAL HISTORY: Pericardial effusion, status post pericardial window. Cervical spinal stenosis with degenerative disc disease. Chronic diastolic heart failure. Hypertension. Type 2 diabetes with diabetic retinopathy. Peptic ulcer disease. Chronic obstructive pulmonary disease. Mild dementia. Chronic kidney disease stage III with a baseline creatinine of 1.1 to 1.2. Abdominal aortic aneurysm without rupture. PAST SURGICAL HISTORY: Pericardial window with pericardiostomy and partial distal sternectomy with xiphoidectomy in 2013. Partial gastric resection in 1962 for peptic ulcer disease. Hernia repair. Open cholecystectomy. SOCIAL HISTORY: The patient is a long-time active smoker. He smokes one pack a day since age 12, and he lives at home. The patient also drinks alcohol but denies any drug use. 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 FAMILY HISTORY: The patient's father at the age of 107 from natural causes, and mother in her 90s from coronary artery disease. CURRENT INPATIENT MEDICATIONS: - sertraline 25 mg daily - metoprolol 12.5 mg twice a day - magnesium 250 mg daily - Zofran 4 mg every 4 hours as needed - Reglan 10 mg every 6 hours as needed - DuoNebs every 6 hours respiratory times - folic acid 1 mg daily - multivitamin one tablet daily - Protonix 40 mg IV daily - as-needed bowel care and pain control REVIEW OF SYSTEMS: General: The patient denies any fevers, chills, night sweats, or weight loss. HEENT: The patient denies any headache, acute changes in vision, or sore throat. Cardiovascular: The patient denies any chest pain or palpitations. Respiratory: The patient denies any shortness of breath or cough. Gastrointestinal (GI): The patient denies any abdominal pain but does endorse nausea without vomiting. The patient denies any diarrhea. Genitourinary (): The patient denies any pain or difficulty with urination. Skin: The patient denies any rashes or lesions on his skin. Lymphatics: The patient denies any lumps or bumps in his neck, axilla, or groin. Neurological: The patient denies any numbness or tingling. Extremities: The patient denies any pain or swelling in his extremities. Hematologic: The patient any easy bruising. PHYSICAL EXAMINATION: Vital signs: Temperature 97.9 degrees Fahrenheit, pulse 78, respiratory rate 17, blood pressure 107/58, pulse oximetry 96% on room air. General: The patient is an alert and oriented ill-appearing male patient who is laying in the hospital bed when we walked into the room. The patient did not appear to be in any acute distress. HEENT: Normocephalic, atraumatic with anicteric sclerae. The patient did have moist mucous membranes. Neck: Was supple with no lymphadenopathy. Cardiovascular: Was a regular rate and rhythm with no murmurs, rubs, or gallops. Respiratory: Was clear to auscultation bilaterally. Abdomen: Was soft but slightly distended with dullness to percussion. There was no tenderness. There was a drain in place in the central upper part of the abdomen that was draining a brown fluid. Extremities: Did show some trace pitting edema in the bilateral lower extremities. Skin: Did not show any evidence or rash or lesions. LABORATORY: White blood cells 7.0, hemoglobin 10.4, hematocrit 28.8, platelet count 193. Sodium 142,potassium 4.0, chloride 108, bicarbonate 28, BUN 30, creatinine 1.23, glucose 123. MICROBIOLOGY: The patient's initial blood cultures times two on 12/01/2019 grew Clostridium perfringens and Escherichia (E) coli. Urine culture was negative. Respiratory panel was negative on the same date. Blood cultures on 12/02/2019 times two were negative. A culture of ascites also was negative. A sputum culture on 12/08/2019 showed extended-spectrum beta-lactamase positive Klebsiella pneumoniae. Blood cultures from 12/09/2019 times two are negative times 24 hours. Gram stain for liver abscess shows no cells or organisms seen. Cultures are still pending. However, calling up to the laboratory, they did say that a gram-negative marlon and a yeastlike organism are growing on the culture plate with no identification yet at this time. IMAGING: The patient had a CT of the abdomen and pelvis on 12/09/2019 which was reported to show findings are highly suspicious for hepatic abscess involving the left hepatic lobe. Perihepatic and moderate ascites noted along with inflammatory stranding through the upper abdomen. No free air or bowel obstruction. Evidence for prior gastric/enteric surgery, cholecystectomy, ventral hernia repair. Stable infrarenal aortic aneurysm. ASSESSMENT AND PLAN: The patient is an 84-year-old male who presented to the hospital on 12/01/2019 after passing out who was diagnosed with atrial fibrillation with rapid ventricular response, as well as sepsis which was thought to be possibly from spontaneous bacterial peritonitis, pneumonia, and/or colitis, who was found to have a liver abscess that was drained yesterday. 1. Liver abscess. As of right now, the patient's culture are not back yet. However, they are growing a gram-negative marlon, as well as a yeastlike organism. The patient is currently on meropenem three times a day. We will continue this antibiotic, as this will cover for the gram-negative rods, as well as most anaerobic bacteria that could be growing in the culture. The patient will be placed on micafungin IV every 24 hours for the yeastlike organism until the yeastlike organism is identified. The patient will most likely need 4-6 weeks of IV antibiotics in order to treat the liver abscess. We will know more once we are able to have identifications of the organisms that are growing. 2. Bacteremia has resolved. The patient is on meropenem which will cover for both Clostridium perfringens and Escherichia (E) coli that grew in his blood cultures when he initially presented. This was most likely from bowel or liver origin as well 3. Klebsiella pneumoniae ESBL in sputum Cx possibly from pneumonia . The patient has received meropenem for 4 days prior to being switched to Rocephin. Klebsiella pneumoniae is sensitive to meropenem, which will be continued. PLAN: The plan is continue with the treatment of IV meropenem and IV micafungin at this time. We will continue to await culture results for the liver abscess. The patient will most likely need 4-6 weeks of IV antibiotics, although the patient may be able to be transitioned to oral levofloxacin after a few weeks of IV antibiotics but will need to further identify the organisms growing in the liver abscess culture. This was most likely the cause of the patient's leukocytosis; and in talking with radiology, in retrospect, the liver abscess may be present on the CT of the abdomen and pelvis that was performed on admission on 12/01/2019, although because the patient did have a bleeding gastric ulcer which required partial gastrectomy, the anatomy is difficult to see and interpret. NAFISA
--- NOTE | 2019-12-13 16:14 | REP ---
Procedure: PICC line insertion with Cierra The procedure was performed under the direct supervision of Dr. Torres. The risks and benefits of the procedure were explained to the patient and informed consent was obtained. The right basilic vein was localized using ultrasound guidance. The skin was prepped and draped in a sterile fashion. 2% lidocaine was used as a local anesthetic. Using ultrasound guidance the basilic vein was cannulated and a 0.018 guidewire was inserted and advanced to the SVC using fluoroscopic guidance. The needle was removed and a 4.5 [place] dilator and peel-away sheath was inserted over the guide wire. A 4.5 [place] single lumen catheter was cut to length of 46 cm. The dilator was removed and the catheter was inserted over the guide wire with the tip ending in the SVC. The peel-away sheath was removed and the catheter was flushed with heparinized saline as per Hospital protocol. The catheter was affixed to the skin and a sterile dressing was applied. The patient tolerated the procedure well and there were no immediate complications. 0.3 minutes of fluoro time was utilized for this procedure. Electronically Signed by ELIOT Le 12/13/2019 03:50 P Electronically Signed by Kishan Torres MD 12/13/2019 04:04 P
--- NOTE | 2019-12-13 18:18 | IPNPDOC ---
Date Seen The patient was seen on 12/13/19. Progress Note SUBJECTIVE: Pt is an 84yM with PMH of A. fib with RVR, DM 2 with diabetic retinopathy, PUD, COPD not dependent on oxygen, mild dementia, CK D stage III, AAA without rupture, history of pericardial effusion status post pericardial window, chronic diastolic heart failure, spinal stenosis with DJD, HTN , presenting with encephalopathy secondary to Escherichia (E) coli and Clostridium bacteremia and PNA growning extended-spectrum beta lactamase (ESBL) klebsiella from his sputum. CT imaging was performed and he was found to have liver abscess, s/p 10cc abscess drainage 12/10/19 POD#2. No overnight events, discussed with patient in regards to rehabilitation, PT eval does recommend rehabilitation. Pt reports feeling worse, VSS. PHYSICAL EXAMINATION: VITAL SIGNS: Please see below. GENERAL: No distress HEENT: Normocephalic, atraumatic, moist mucous membranes NECK: Supple CARDIOVASCULAR EXAMINATION: S1, S2 RESPIRATORY EXAMINATION: CTAB ABDOMINAL EXAMINATION: Soft, slight tenderness on RUQ, drainage of bilious fluid, nondistended, positive bowel sounds EXTREMITIES: trace edema SKIN: No rash NEUROLOGICAL EXAMINATION: Awake PSYCHIATRIC EXAMINATION: Calm and cooperative, flat affect Pt is an 84yM with PMH of A. fib with RVR, DM 2 with diabetic retinopathy, PUD, COPD not dependent on oxygen, mild dementia, CK D stage III, AAA without rupture, history of pericardial effusion status post pericardial window, chronic diastolic heart failure, spinal stenosis with DJD, HTN , presenting with encephalopathy secondary to Escherichia (E) coli and Clostridium bacteremia and PNA growning extended-spectrum beta lactamase (ESBL) klebsiella from his sputum. CT imaging was performed and he was found to have liver abscess, s/p 10cc abscess drainage 12/10/19 POD#2. #Liver abscess POD#2 s/p liver drainage, ID consulted with recommendations for IV Abx on discharge x6 weeks, PT eval for deconditioning with recommendations for rehabilitation #Klebsiella (ESBL) pneumonia, leukocytosis, improving, On Day 5 of meropenem, f/u ID recs #Acute kidney injury superimposed on chronic kidney disease 3, resolved #Acute hypoxic respiratory failure, improved with diuresis, stable #Atrial fibrillation. His rate is controlled on metoprolol, continue home NOAC, Xarelto was on hold for liver biopsy, CHADSVASC >2. #Anemia: stable, continue to monitor H&H DVT ppx: SCD, plan to resume home NOAC DNR/DNI Disposition: rehab 12/14/19 vs 12/15/19, f/u with PCP and ID for Abx for dc VS, I&O, 24H, Fishbone Vital Signs/I&O Vital Signs Date Time Temp Pulse Resp B/P (MAP) Pulse Ox O2 Delivery O2 Flow Rate FiO2 12/13/19 14:00 98.2 72 18 110/62 (78) 93 Room Air 12/11/19 17:15 2 I&O- Last 24 Hours up to 6 AM 12/13/19 06:00 Intake Total 1190 ml Output Total 805 ml Balance 385 ml Laboratory Data 24H LABS Laboratory Tests 2 12/13/19 05:57: Nucleated Red Blood Cells % (auto) 0.0, Anion Gap 4L, Glomerular Filtration Rate > 60.0, Calcium Level 7.8L CBC/BMP Laboratory Tests 12/13/19 05:57 Microbiology Microbiology 12/11/19 Gram Stain - Final, Resulted 12/11/19 Abscess Culture, Resulted Pending 12/09/19 Blood Culture - Preliminary, Resulted No Growth after 72 hours. All specime... 12/09/19 Blood Culture - Preliminary, Resulted No Growth after 72 hours. All specime... 12/08/19 Gram Stain - Final, Complete 12/08/19 Sputum Culture - Final, Complete Klebsiella Pneumoniae Esbl 12/04/19 Gram Stain - Final, Complete 12/04/19 Body Fluid Culture - Final, Complete AGATHA LARA MD December 13, 2019 18:18
[2019-12-13] MEDS: RIVAROXABAN 20 MG TAB (XARELTO) PO SCH (18:24)
[2019-12-13] MEDS: MICAFUNGIN SODIUM 100 MG in D5W MINI-BAG PLUS 100 ML IV SCH (18:24)
[2019-12-13] MEDS: SODIUM CHLORIDE 0.9% INJ 10 ML SYR IV SCH (19:41)
[2019-12-13 22:00] VITALS: BP 119/59
[2019-12-14] MEDS: IPRATROPIUM 0.5MG/ALBUTEROL 2.5MG INH SOL UD 3ML (DUONEB)(J7620) NEB SCH ×4 (01:12→19:33)
[2019-12-14 05:53] VITALS: BP 118/62
[2019-12-14] MEDS: SODIUM CHLORIDE 0.9% INJ 10 ML SYR IV SCH ×2 (05:57→16:09)
[2019-12-14 06:12] LABS: HEMATOCRIT 30.3 % (42.0-52.0); HEMOGLOBIN 10.9 g/dl (13.5-17.5); MEAN CORPUSCULAR HEMOGLOBIN 29.8 pg (27.0-33.0); MEAN CORPUSCULAR VOLUME 82.8 fl (80.0-96.0); PLATELET COUNT, AUTOMATED 201 10^3/uL (150-450); RED BLOOD COUNT 3.66 10^6/uL (4.30-6.10); WHITE BLOOD COUNT 7.7 10^3/uL (4.0-10.0)
[2019-12-14 06:38] LABS: BLOOD UREA NITROGEN 28 MG/DL (7-18); CALCIUM LEVEL 7.9 MG/DL (8.8-10.2); CARBON DIOXIDE LEVEL 28 MEQ/L (21-32); CHLORIDE LEVEL 106 MEQ/L (98-107); CREATININE FOR GFR 1.14 MG/DL (0.70-1.30); GLOMERULAR FILTRATION RATE > 60.0 (>35); GLUCOSE, FASTING 109 MG/DL (70-100); POTASSIUM SERUM 4.3 MEQ/L (3.5-5.1); SODIUM LEVEL 142 MEQ/L (136-145)
[2019-12-14] MEDS: MULTIVITAMINS/MINERALS THERAP 1 TAB PO SCH (09:00)
[2019-12-14] MEDS: METOPROLOL TART 12.5 MG PER 1/2 TAB PO SCH ×2 (09:00→21:00)
[2019-12-14] MEDS: PANTOPRAZOLE 40MG VIAL (C9113 PER 1) IV SCH (09:02)
[2019-12-14] MEDS: MAGNESIUM GLUCONATE 500 MG TAB PO SCH (09:03)
[2019-12-14] MEDS: MEROPENEM INJ 1 GM in IV 1 EA IV SCH (09:03)
[2019-12-14] MEDS: SERTRALINE HCL 25 MG TABLET PO SCH (09:03)
[2019-12-14] MEDS: FOLIC ACID 1 MG TAB PO SCH (09:04)
--- NOTE | 2019-12-14 11:46 | DS.PDOC ---
Discharge Summary General Date of Admission Dec 01, 2019 at 04:20 Date of Discharge 12/14/19 Discharge Summary PROCEDURES PERFORMED DURING STAY: Liver drainage ADMITTING DIAGNOSES: 1. A.fib with RVR DISCHARGE DIAGNOSES: 1. A. fib with RVR, sepsis secondary to Klebsiella, ESBL, liver abscess and bacteremia, deconditioning COMPLICATIONS/CHIEF COMPLAINT: Afib W Rvr/Sepsis. HISTORY OF PRESENT ILLNESS/HOSPITAL COURSE: Pt is an 84yM with PMH of A. fib with RVR, DM 2 with diabetic retinopathy, PUD, COPD not dependent on oxygen, mild dementia, CK D stage III, AAA without rupture, history of pericardial effusion status post pericardial window, chronic diastolic heart failure, spinal stenosis with DJD, HT, presenting with encephalopathy secondary to Escherichia (E) coli and Clostridium bacteremia and PNA growing extended-spectrum beta lactamase (ESBL) klebsiella from his sputum. Repeat blood cultures were negative for any growth. CT imaging was performed and he was found to have liver abscess, s/p 10cc abscess drainage 12/10/19 POD#4. Ulcers grew Klebsiella pneumonia ESBL, and yeast-like organisms. His hospitalization, he obtained an echo on 12/01/2019 which was a limited study but reveals an EF of 40%, grade 2 diastolic dysfunction. Critical care and infectious disease were consult it during hospitalization. ID consulted with recommendations for IV Abx on discharge x6 weeks, PT eval for deconditioning with recommendations for rehabilitation. Patient will need to follow-up with IR in 6 weeks, PICC line was placed and will require 6 weeks of antibiotics. Follow-up with PCP in 1 week. All questions were answered. DISCHARGE MEDICATIONS: Please see below. ALLERGIES: Please see below. PHYSICAL EXAMINATION ON DISCHARGE: VITAL SIGNS: Please see below. GENERAL: No distress HEENT: Normocephalic, atraumatic, moist mucous membranes NECK: Supple CARDIOVASCULAR EXAMINATION: S1, S2 RESPIRATORY EXAMINATION: CTAB ABDOMINAL EXAMINATION: Soft, slight tenderness on RUQ, drainage of bilious fluid, nondistended, positive bowel sounds EXTREMITIES: trace edema SKIN: No rash NEUROLOGICAL EXAMINATION: Awake PSYCHIATRIC EXAMINATION: Calm and cooperative, flat affect LABORATORY DATA: Please see below. 32 minutes were spent and on discharge coordination. Vital Signs/I&Os Vital Signs Date Time Temp Pulse Resp B/P (MAP) Pulse Ox O2 Delivery O2 Flow Rate FiO2 12/14/19 09:00 59 120/79 12/14/19 05:53 97.5 18 93 Room Air 12/11/19 17:15 2 I&O- Last 24 Hours up to 6 AM 12/14/19 06:00 Intake Total 985 ml Output Total 1250 ml Balance -265 ml Laboratory Data Labs 24H Laboratory Tests 2 12/14/19 05:57: Nucleated Red Blood Cells % (auto) 0.0, Anion Gap 8, Glomerular Filtration Rate > 60.0, Calcium Level 7.9L CBC/BMP Laboratory Tests 12/14/19 05:57 Microbiology Microbiology 12/11/19 Gram Stain - Final, Complete 12/11/19 Abscess Culture - Final, Complete Klebsiella Pneumoniae Esbl Yeast Like Organism 12/09/19 Blood Culture - Preliminary, Resulted No Growth after 72 hours. All specime... 12/09/19 Blood Culture - Final, Complete NO GROWTH AFTER 5 DAYS 12/08/19 Gram Stain - Final, Complete 12/08/19 Sputum Culture - Final, Complete Klebsiella Pneumoniae Esbl 12/04/19 Gram Stain - Final, Complete 12/04/19 Body Fluid Culture - Final, Complete Discharge Medications Scheduled PRN Naproxen Sodium (Naproxen Sodium) 220 Mg Capsule, 220 MG PO BID PRN for PAIN, (Reported) Allergies Coded Allergies: Penicillins (Verified Allergy, Intermediate, RASH, 12/01/19) morphine (Verified Adverse Reaction, Mild, N/V, 12/01/19) AGATHA LARA MD December 14, 2019 11:46
[2019-12-14 12:00] VITALS: BP 125/79
[2019-12-14] MEDS ORDERED: SERT25TA21 PO (12:01)
[2019-12-14] MEDS ORDERED: MERO1VIA3 IV (12:01)
[2019-12-14] MEDS ORDERED: METO1TAB87 PO (12:01)
[2019-12-14] MEDS ORDERED: MYCA100I IV (12:01)
[2019-12-14] MEDS ORDERED: ERTAPENEM SODIUM 1 GM in NS MINI-BAG PLUS 50 ML IV SCH (16:00)
[2019-12-14] MEDS: MICAFUNGIN SODIUM 100 MG in D5W MINI-BAG PLUS 100 ML IV SCH (17:09)
[2019-12-14] MEDS: RIVAROXABAN 20 MG TAB (XARELTO) PO SCH (17:09)
[2019-12-14 17:32] LABS: C REACTIVE PROTEIN QUANTITATIV 3.86 MG/DL (0.00-0.30)
[2019-12-14 20:29] VITALS: BP 116/60
[2019-12-15] MEDS: IPRATROPIUM 0.5MG/ALBUTEROL 2.5MG INH SOL UD 3ML (DUONEB)(J7620) NEB SCH ×2 (01:35→07:18)
[2019-12-15] MEDS: SODIUM CHLORIDE 0.9% INJ 10 ML SYR IV SCH (05:13)
[2019-12-15 05:35] LABS: HEMOGLOBIN 11.1 g/dl (13.5-17.5); MEAN CORPUSCULAR HEMOGLOBIN 29.8 pg (27.0-33.0); MEAN CORPUSCULAR HGB CONC 35.8 g/dl (32.0-36.5); MEAN CORPUSCULAR VOLUME 83.3 fl (80.0-96.0); PLATELET COUNT, AUTOMATED 213 10^3/uL (150-450); RED BLOOD COUNT 3.72 10^6/uL (4.30-6.10); WHITE BLOOD COUNT 8.1 10^3/uL (4.0-10.0)
--- NOTE | 2019-12-15 06:21 | IPN ---
DATE: 12/14/2019 Mr. Tamayo is doing well. He has no new complaints. He is being transferred to the [facility] to [facility]. He continues with liver abscess drainage. He has no nausea, vomiting, or diarrhea. LABS: White count is 7.7, hemoglobin 10.9, hematocrit 30.3, platelets 201. Sodium 142, potassium 4.3, chloride 106, bicarbonate 28, BUN 28, creatinine 1.14, glucose 109, calcium 7.9. His last CRP was done on 12/03/2019, was 10.9. Blood cultures on 12/09/2019: Two sets were no growth after 5 days. Sputum culture on 12/08/2019 had Klebsiella extended-spectrum beta-lactamase (ESBL) pneumoniae, and culture from the abscess has Klebsiella pneumoniae ESBL and yeast-like organism that has not been identified yet but has been sent out. ESBL is susceptible to levofloxacin, meropenem, Zosyn, tigecycline, and ertapenem. ON PHYSICAL EXAM: Vital signs: Temperature is 97.4, pulse 75, respirations 20, blood pressure 125/79, oxygen saturation 99% on room air. Heart: Normal S1, S2. No murmurs. Abdomen: Obese, soft, nontender with a drain from the right upper quadrant with bilious drainage. Nondistended. Extremities: Trace edema. Skin: No rashes. IMPRESSION: 1. Liver abscess, status post drainage procedure. Drain remains in place with polymicrobial infection, including Klebsiella pneumoniae-ESBL, yeast-like organism, and original blood cultures were positive for Clostridium perfringens and Escherichia (E) coli, all probably from gastrointestinal (GI) origin. Patient doing well on intravenous (IV) meropenem and micafungin. Meropenem will be switched to ertapenem IV as it is easier to administer in the [facility] at 1 gram daily. Once yeast has been identified, if it is Amanda albicans, then micafungin could be switched to oral fluconazole. 2. Clostridium perfringens bacteremia. Concerning for possibility of GI malignancy. Patient has not had colonoscopy in many years. This needs to be offered to the patient. PLAN: Discontinue IV meropenem. Start IV ertapenem. Patient will need 6 weeks of IV antibiotics, until 01/20/2020. If he clinically improves, he may be switched to oral Levaquin skilled nursing through and may consider to switch from micafungin to fluconazole if yeast is Amanda albicans. Add C-reactive protein (CRP) level. Please, at the [facility], monitor labs including complete blood count (CBC), comprehensive metabolic panel (CMP), CRP, and sedimentation rate weekly. Call me to see him in 2 weeks at [place] Edited: gentry 12/15/2019 0633 MTDD
[2019-12-15 06:27] LABS: BLOOD UREA NITROGEN 28 MG/DL (7-18); CALCIUM LEVEL 7.5 MG/DL (8.8-10.2); CARBON DIOXIDE LEVEL 29 MEQ/L (21-32); CHLORIDE LEVEL 107 MEQ/L (98-107); CREATININE FOR GFR 1.13 MG/DL (0.70-1.30); GLOMERULAR FILTRATION RATE > 60.0 (>35); GLUCOSE, FASTING 120 MG/DL (70-100); POTASSIUM SERUM 4.2 MEQ/L (3.5-5.1); SODIUM LEVEL 142 MEQ/L (136-145)
[2019-12-15 09:00] VITALS: BP 118/81
[2019-12-15] MEDS: METOPROLOL TART 12.5 MG PER 1/2 TAB PO SCH (09:00)
[2019-12-15] MEDS: SERTRALINE HCL 25 MG TABLET PO SCH (09:00)
[2019-12-15] MEDS: ONDANSETRON 4MG/2ML VIAL IV PRN (09:11)
[2019-12-15] MEDS: PANTOPRAZOLE 40MG VIAL (C9113 PER 1) IV SCH (09:11)
[2019-12-15] MEDS: MAGNESIUM GLUCONATE 500 MG TAB PO SCH (09:12)
[2019-12-15] MEDS: FOLIC ACID 1 MG TAB PO SCH (09:15)
[2019-12-15] MEDS: MULTIVITAMINS/MINERALS THERAP 1 TAB PO SCH (09:15)
[2019-12-15] MEDS ORDERED: ERTA1INJ3 IJ (10:01)
== END 2019-12-15 11:20 | DRG 871 ==
LOC: M ED 02:02 → M ED INP 04:20 → EEVIPCON 04:20 → ENRESERV 04:29 → M RR INP 05:15 → M PCU 12-03 11:17 → M MS5PR 12-08 11:50
PROVIDERS: ADMIT Internal Medicine; ATTEND Family Medicine
PROC: 02HV33Z Insertion of Infusion Device into Superior Vena Cava, Percutaneous Approach (ICD-10-PCS; 2019-12-10)
PROC: 0F9030Z Drainage of Liver with Drainage Device, Percutaneous Approach (ICD-10-PCS; principal; 2019-12-11 16:00)
DX: A41.51 Sepsis due to Escherichia coli [E. coli] (principal); R65.21 Severe sepsis with septic shock; J96.01 Acute respiratory failure with hypoxia; I50.33 Acute on chronic diastolic (congestive) heart failure; K75.0 Abscess of liver; J15.0 Pneumonia due to Klebsiella pneumoniae; I13.0 Hypertensive heart and chronic kidney disease with heart failure and stage 1 through stage 4 chronic kidney disease, or unspecified chronic kidney disease; N17.9 Acute kidney failure, unspecified; I24.8 Other forms of acute ischemic heart disease; R18.8 Other ascites; N18.3 Chronic kidney disease, stage 3 (moderate); D69.6 Thrombocytopenia, unspecified; I48.91 Unspecified atrial fibrillation; K52.9 Noninfective gastroenteritis and colitis, unspecified; E11.319 Type 2 diabetes mellitus with unspecified diabetic retinopathy without macular edema; J44.9 Chronic obstructive pulmonary disease, unspecified; F03.90 Unspecified dementia, unspecified severity, without behavioral disturbance, psychotic disturbance, mood disturbance, and anxiety; I71.4 Abdominal aortic aneurysm, without rupture; Z88.0 Allergy status to penicillin; Z88.5 Allergy status to narcotic agent; Z91.19 Patient's noncompliance with other medical treatment and regimen; E83.42 Hypomagnesemia; E87.6 Hypokalemia; F17.200 Nicotine dependence, unspecified, uncomplicated; Z79.899 Other long term (current) drug therapy; K74.60 Unspecified cirrhosis of liver; K21.9 Gastro-esophageal reflux disease without esophagitis; Z91.14 Patient's other noncompliance with medication regimen; R13.10 Dysphagia, unspecified

== ENCOUNTER → 2019-12-19 | Outpatient (REF) ==
[~2019-12-19] MED LIST changes: +ACET-907 PO; +BISA10SU PR; +ENEMENE PR; +ERTA1INJ3 IJ; +INVA1SOL IV; +MERO1VIA3 IV; +METO1TAB87 PO; +MOM30SS2 PO; +MYCA100I IV; +NAPR220C PO; +OMEP1CAP73 PO; +SERT25TA21 PO; +TUMS500C PO; +XARE20TA PO; +ZOFR4TAB16 PO
== END ==
LOC: SKLAB2 07:00
PROVIDERS: ATTEND Internal Medicine
DX: Z03.818 Encounter for observation for suspected exposure to other biological agents ruled out (principal)

== ENCOUNTER → 2019-12-19 | Outpatient (REF) ==
[2019-12-19 08:59] LABS: HEMATOCRIT 32.9 % (42.0-52.0); HEMOGLOBIN 11.7 g/dl (13.5-17.5); MEAN CORPUSCULAR HEMOGLOBIN 30.8 pg (27.0-33.0); MEAN CORPUSCULAR HGB CONC 35.6 g/dl (32.0-36.5); MEAN CORPUSCULAR VOLUME 86.6 fl (80.0-96.0); PLATELET COUNT, AUTOMATED 220 10^3/uL (150-450); WHITE BLOOD COUNT 8.1 10^3/uL (4.0-10.0)
[2019-12-19 09:22] LABS: ERYTHROCYTE SEDIMENTATION RATE 25 mm/hr (0-20)
[2019-12-19 09:26] LABS: ALBUMIN 1.8 GM/DL (3.2-5.2); ALT/SGPT 23 U/L (12-78); BLOOD UREA NITROGEN 29 MG/DL (7-18); C REACTIVE PROTEIN QUANTITATIV 1.53 MG/DL (0.00-0.30); CARBON DIOXIDE LEVEL 26 MEQ/L (21-32); CHLORIDE LEVEL 110 MEQ/L (98-107); GLOMERULAR FILTRATION RATE > 60.0 (>35); GLUCOSE, FASTING 95 MG/DL (70-100); POTASSIUM SERUM 4.8 MEQ/L (3.5-5.1); SODIUM LEVEL 144 MEQ/L (136-145); TOTAL PROTEIN 6.4 GM/DL (6.4-8.2)
== END ==
LOC: SKLAB2 07:30
PROVIDERS: ATTEND Family Medicine
DX: A41.9 Sepsis, unspecified organism (principal)

== ENCOUNTER → 2019-12-20 | Outpatient (REF) ==
[2019-12-20 14:09] LABS: HEMATOCRIT 39.6 % (42.0-52.0); HEMOGLOBIN 13.2 g/dl (13.5-17.5); MEAN CORPUSCULAR HEMOGLOBIN 29.6 pg (27.0-33.0); MEAN CORPUSCULAR HGB CONC 33.3 g/dl (32.0-36.5); MEAN CORPUSCULAR VOLUME 88.8 fl (80.0-96.0); PLATELET COUNT, AUTOMATED 271 10^3/uL (150-450); RED BLOOD COUNT 4.46 10^6/uL (4.30-6.10); WHITE BLOOD COUNT 10.4 10^3/uL (4.0-10.0)
[2019-12-20 14:13] LABS: AMORPHOUS SEDIMENT SMALL (NEGATIVE); APPEARANCE, URINE HAZY (CLEAR); BACTERIA, URINE AUTO NEGATIVE (NEGATIVE); BILIRUBIN, URINE AUTO NEGATIVE (NEGATIVE); BLOOD, URINE BLOOD 2+ (NEGATIVE); GLUCOSE, URINE (UA) AUTO NEGATIVE (NEGATIVE); KETONE, URINE AUTO TRACE mg/dL (NEGATIVE); LEUKOCYTE ESTERASE, URINE AUTO NEGATIVE (NEGATIVE); MUCUS, URINE SMALL (NEGATIVE); NITRITE, URINE AUTO NEGATIVE (NEGATIVE); PROTEIN, URINE AUTO NEGATIVE (NEGATIVE); RBC, URINE AUTO 38 /HPF (0-3); SQUAMOUS EPITHELIAL CELL UR AU 0 /HPF (0-6); UROBILINOGEN, URINE AUTO 0.2 mg/dL (0.0-2.0); WBC, URINE AUTO 8 /HPF (0-3)
[2019-12-20 14:14] LABS: COLOR, URINE YELLOW (YELLOW)
[2019-12-20 14:54] LABS: ALBUMIN 2.2 GM/DL (3.2-5.2); BILIRUBIN,TOTAL 1.2 MG/DL (0.2-1.0); CALCIUM LEVEL 8.4 MG/DL (8.8-10.2); CREATININE FOR GFR 1.36 MG/DL (0.70-1.30); GLOMERULAR FILTRATION RATE 53.1 (>35); POTASSIUM SERUM 4.9 MEQ/L (3.5-5.1); TOTAL PROTEIN 7.9 GM/DL (6.4-8.2)
--- NOTE | 2019-12-20 16:29 | REP ---
PORTABLE CHEST: AP portable view of the chest is performed and compared to a prior study of 12/08/2019. There is persistent left lower lobe consolidation behind the heart which may be mildly increased compared to the prior study. There is a small left pleural effusion. Right lung appears clear with elevation of the right hemidiaphragm unchanged. The heart and mediastinum are unchanged. Right arm PICC line is noted with the tip in the superior vena cava. Electronically Signed by Kishan Torres MD 12/20/2019 04:34 P
--- NOTE | 2019-12-20 16:55 | REP ---
REASON: CHF. There is a curvilinear radiodensity in the abdomen. I have not been given history as to what this catheter-appearing density clinically represents. When compared to the latest prior abdominal series obtained on 05/28/2007, this finding represents a change. The intestinal gas pattern is nonspecific. There is no evidence of intestinal obstruction. There is no gross free air. There are chronic changes seen involving the imaged osseous structures. There are surgical clips in the gallbladder fossa from previous cholecystectomy. IMPRESSION: Findings as described above. Electronically Signed by Joe Velasquez DO 12/20/2019 08:31 P
== END ==
LOC: SKLAB2 11:52
PROVIDERS: ATTEND Family Medicine
DX: E86.0 Dehydration (principal); R11.10 Vomiting, unspecified

== ENCOUNTER → 2019-12-21 | Outpatient (REF) ==
[2019-12-21 09:38] LABS: ALBUMIN 2.1 GM/DL (3.2-5.2); CALCIUM LEVEL 8.2 MG/DL (8.8-10.2); CREATININE FOR GFR 1.48 MG/DL (0.70-1.30); GLOMERULAR FILTRATION RATE 48.2 (>35); PHOSPHORUS LEVEL 3.3 MG/DL (2.5-4.9)
== END ==
LOC: SKLAB2 07:04
PROVIDERS: ATTEND Family Medicine
DX: A41.9 Sepsis, unspecified organism (principal)

== ENCOUNTER 2020-01-04 11:38 | Inpatient (IN) | payer MEDICARE, OTHER ==
[~2020-01-04] VITALS: Ht 182.9 cm; Wt 93.8 kg
[~2020-01-04 11:38] MED LIST changes: +FLAG500T PO; +FURO20TA2 PO; +LEVO500T3 PO; +REGL10TA6 PO
[2020-01-04] MEDS ORDERED: LEVA1TAB2 PO (12:20)
[2020-01-04] MEDS ORDERED: FURO20TA2 PO (12:20)
[2020-01-04] MEDS ORDERED: METO10TA2 PO (12:20)
[2020-01-04] MEDS ORDERED: METR-265 PO (12:20)
[2020-01-04] MEDS ORDERED: MILKSUS3 PO (12:22)
[2020-01-04 13:28] LABS: BASO % 0.4 % (0.0-1.0); EOS # 0.1 10^3/uL (0.0-0.5); EOS % 0.8 % (0.0-3.0); HEMATOCRIT 29.2 % (42.0-52.0); HEMOGLOBIN 10.8 g/dl (13.5-17.5); LYMPH # 1.2 10^3/uL (1.5-5.0); MEAN CORPUSCULAR HEMOGLOBIN 30.6 pg (27.0-33.0); MEAN CORPUSCULAR VOLUME 82.7 fl (80.0-96.0); MONO # 0.6 10^3/uL (0.0-0.8); MONO % 8.8 % (0.0-5.0); NEUTROPHILS # 5.1 10^3/uL (1.5-8.5); NEUTROPHILS % 72.6 % (36.0-66.0); PLATELET COUNT, AUTOMATED 133 10^3/uL (150-450); RED BLOOD COUNT 3.53 10^6/uL (4.30-6.10); WHITE BLOOD COUNT 7.1 10^3/uL (4.0-10.0)
[2020-01-04 13:36] LABS: ALBUMIN 1.4 GM/DL (3.2-5.2); ALT/SGPT 15 U/L (12-78); BILIRUBIN,TOTAL 1.6 MG/DL (0.2-1.0); CK-MB VALUE MASS 2.7 NG/ML (<3.6); CPK CREATINE PHOSPHOKINASE 30 U/L (39-308); LIPASE 111 U/L (73-393); TOTAL PROTEIN 5.9 GM/DL (6.4-8.2); TROPONIN I < 0.02 NG/ML (< 0.10)
--- NOTE | 2020-01-04 16:57 | REP ---
CT ABDOMEN/PELVIS WITHOUT CONTRAST: CT abdomen/pelvis performed without oral or IV contrast. Sagittal and coronal reconstruction images are performed. Comparison made with prior study of 12/22/2019. Small amount of left pleural fluid is again noted, unchanged. There is adjacent consolidative opacity, which is also stable. There is moderate abdominal and pelvic ascites, which appears similar to the prior exam. A drainage catheter is seen in a liver abscess, in the left lobe of the liver. Spleen is normal in size with no intrinsic abnormality. The adrenal glands are unremarkable. Pancreas is grossly unremarkable. Kidneys are grossly unremarkable. Punctate calcification in the left renal pelvis is unchanged. Abdominal aortic aneurysm is unchanged. There is atherosclerotic calcification of the abdominal aorta. I see no adenopathy or free air. No gross bowel abnormality is seen. Urinary bladder is mildly distended and grossly unremarkable. There are degenerative changes of the spine. IMPRESSION: Moderate abdominal and pelvic ascites appears similar to the prior exam. Pigtail drainage catheter is seen in a known liver abscess. Stable left pleural fluid and adjacent parenchymal consolidation. No new findings. Electronically Signed by Kishan Torres MD 01/04/2020 05:08 P
[2020-01-04] MEDS ORDERED: NS 1,000 ML IV ONE (17:45)
[2020-01-04] MEDS ORDERED: RIVAROXABAN 20 MG TAB (XARELTO) PO SCH (18:00)
--- NOTE | 2020-01-04 18:07 | IPNPDOC ---
Date Seen The patient was seen on 01/04/20. Progress Note EMERGENCY CONTACT INFORMATION NOA [phone] NEPHEW, RICH [phone] VS, I&O, 24H, Herbert Vital Signs/I&O Vital Signs Date Time Temp Pulse Resp B/P (MAP) Pulse Ox O2 Delivery O2 Flow Rate FiO2 01/04/20 15:47 98.0 19 118/56 (76) 95 01/04/20 15:38 71 01/04/20 11:51 Room Air Laboratory Data 24H LABS Laboratory Tests 2 01/04/20 12:30: Immature Granulocyte % (Auto) 0.4, Neutrophils (%) (Auto) 72.6H, Lymphocytes (%) (Auto) 17.0L, Monocytes (%) (Auto) 8.8H, Eosinophils (%) (Auto) 0.8, Basophils (%) (Auto) 0.4, Neutrophils # (Auto) 5.1, Lymphocytes # (Auto) 1.2L, Monocytes # (Auto) 0.6, Eosinophils # (Auto) 0.1, Basophils # (Auto) 0.0, Nucleated Red Blood Cells % (auto) 0.0, Lactic Acid Level 1.0, Total Bilirubin 1.6#H, Direct Bilirubin 1.0H, Aspartate Amino Transf (AST/SGOT) 44H, Alanine Aminotransferase (ALT/SGPT) 15, Alkaline Phosphatase 321H, Total Creatine Kinase 30L, Creatine Kinase MB 2.7, Creatine Kinase MB Relative Index 9.00H, Troponin I < 0.02, Total Protein 5.9L, Albumin 1.4L, Albumin/Globulin Ratio 0.3, Lipase 111 01/04/20 12:38: POC Glucose (Misc Panel) 91, POC Sodium (Misc Panel) 141, POC Potassium (Misc Panel) 3.4L, POC Chloride (Misc Panel) 107, POC Total CO2 (Misc Panel) 20.0L, POC Blood Urea Nitrogen (Misc Panel 15, POC Ionized Calcium (Misc Panel) 4.6, POC Creatinine (Misc Panel) 1.7H, POC Hematocrit (Misc Panel) 32.0L CBC/BMP Laboratory Tests 01/04/20 12:30 Microbiology Microbiology 01/04/20 Blood Culture, Received Pending 01/04/20 Blood Culture, Received Pending GABRIELA FIGUEROA MD January 04, 2020 18:07
[2020-01-04 18:19] LABS: C REACTIVE PROTEIN QUANTITATIV 1.74 MG/DL (0.00-0.30)
[2020-01-04] MEDS ORDERED: BISACODYL 10 MG SUPP PR PRN (19:00)
[2020-01-04] MEDS ORDERED: CALCIUM CARBONATE 500 MG CHEW U/D PO PRN (19:00)
[2020-01-04] MEDS ORDERED: METOCLOPRAMIDE 10 MG TAB PO PRN (19:00)
[2020-01-04] MEDS ORDERED: ACETAMINOPHEN TAB 650MG DOSE (2X325MG) PO PRN (19:00)
[2020-01-04] MEDS ORDERED: MOM 30ML SUSPENSION UDC PO PRN (19:00)
[2020-01-04 19:39] LABS: ERYTHROCYTE SEDIMENTATION RATE 42 mm/hr (0-20)
--- NOTE | 2020-01-04 21:08 | ECGEPIP ---
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
[2020-01-04 22:24] VITALS: BP 108/54
[2020-01-04] MEDS: metroNIDAZOLE (FLAGYL) 500 MG TAB PO SCH (23:59)
[2020-01-05] VITALS: BP 128/76
--- NOTE | 2020-01-05 03:38 | HPE ---
DATE OF ADMISSION: 01/04/2020 CHIEF COMPLAINT: Sent from [facility] due to hypotension/low blood pressure. HISTORY OF PRESENT ILLNESS: Patient is a poor historian. He is an 84-year-old with mild dementia, chronic diastolic heart failure, hypertension, type 2 diabetes, chronic obstructive pulmonary disease (COPD), not on oxygen, chronic kidney disease (CKD) stage III, abdominal aortic aneurysm without rupture, cervical spinal stenosis, pericardial effusion with window. Had previous admission for atrial fibrillation with rapid ventricular response (RVR) and sepsis 12/01/2019, discharged 12/15/2019 after being treated for liver abscess status post liver drainage. Patient had pneumonia growing extended-spectrum beta-lactamase Klebsiella from his sputum, Escherichia (E) coli, and Clostridium bacteremia and liver abscess status post 10 mL abscess drainage on 12/10/2019 by interventional radiology with a drain left in place when he was discharged to [facility], but no workup was performed to figure out where the patient's E. coli had come from and ansley. Patient had received meropenem at that time, changed to ertapenem once daily until 01/20/2020 and potentially switching over to Levaquin [facility] through. Once yeast was identified, if it was [place] albicans, then micafungin could be switched to oral fluconazole or may consider switching from micafungin to fluconazole if the yeast is [place] albicans. Patient was found to have low blood pressure and was sent to the emergency room. Without any intervention, patient's blood pressure improved from 97/55 to 131/64. He had had no fever. Complains of abdominal discomfort that he rates at 3/10 and denies any chills. No shortness of breath, chest pain. No diarrhea. Repeat CT abdomen and pelvis shows the drain is in place. There is moderate abdominal and pelvic ascites, which is similar from prior exam, and stable left pleural fluid and adjacent parenchymal consolidation but with no new findings. Hospitalist was asked to admit for evaluation of hypotension, which resolved without intervention. When asked if the patient wants to continue with full treatment versus comfort measures and hospice, patient says, "I don't know." We had attempted to call his health care proxy, which is Sylvain Roni (phone number [phone]), but he was unavailable. The patient's nephew, Chivo ([phone]), said that Sylvain makes the decisions for his father. Patient is to be continued on his outpatient antibiotics per infectious disease recommendations. Liver abscess, unknown etiology. Patient says, "I don't know what to do" when asked whether he would like this to be looked at. It would mean colonoscopy to rule out perforation. While I am awaiting a call back from his son, Sylvain, to help with decision making at this time, for now he is continued on Levaquin. Blood cultures have been obtained. He remains afebrile. White count is normal. We will check C-reactive protein (CRP) and sedimentation rate. PAST MEDICAL HISTORY: 1. Liver abscess. 2. Pneumonia. 3. Spinal stenosis. 4. Chronic diastolic heart failure. 5. CKD III. 6. Atrial fibrillation with RVR. 7. Diabetes with retinopathy. 8. Peptic ulcer disease. 9. COPD, not oxygen dependent. 10. Dementia. 11. Pericardial effusion status post window. 12. Coffee ground emesis with gastrointestinal (GI) bleed in the past. PAST SURGICAL HISTORY: 1. Pericardial window with pericardiostomy and partial distal sternectomy with xiphoidectomy in 2013. 2. Partial gastric resection 1962 for peptic ulcer disease. 3. Hernia repair. 4. Open cholecystectomy. SOCIAL HISTORY: Previously smoked. Currently not smoking since he has been to the hospital and [facility]. Occasional alcohol use. No recreational drug use. Retired. Health care proxy is Sylvain Tamayo (phone number [phone]) and nephew ([phone]). FAMILY HISTORY: Noncontributory due to age. REVIEW OF SYSTEMS: Per history of present illness (HPI). 12-point system otherwise negative. PHYSICAL EXAMINATION: Temperature 98, pulse 72, respiratory rate 20, blood pressure 131/64, 94% on room air. Generally: Patient is in no respiratory distress. No jugular venous distention (JVD). No thyromegaly. Patient has no cervical lymphadenopathy. Dry mucous membranes with chapped lips and dry tongue. Patient has clear lungs. No wheezing, rales, or rhonchi. Heart: S1, S2, regularly irregular. Abdomen: Is soft. Slightly tender on deep palpation, but no rebound, guarding. Positive bowel sounds times four quadrants. Drain has bilious material. Extremities: Chronic edema to the sacrum, 3+. White count 7.1, hemoglobin 10.8, hematocrit 29.2, platelet count 133, 72% neutrophils. Sodium 141, potassium 3.4, chloride 107, bicarbonate 20, BUN 15, creatinine 1.7, glucose of 91, lactic acid of 1, total bilirubin 1.6, direct bilirubin 1, AST 44, ALT 15, alkaline phosphatase 321, total CK of 30, MB fraction 2.7, relative index 9.0, troponin less than 0.02, albumin of 1.4. ASSESSMENT AND PLAN: 1. 84-year-old male, DO NOT RESUSCITATE, DO NOT INTUBATE, with liver abscess, polymicrobial bacteremia with Escherichia coli and Clostridium, currently on Levaquin and Flagyl and drainage. Abscess was with Klebsiella, Pseudomonas, Enterococcus faecium, multibacterial. Infectious disease specialist has been consulted, Dr. Moisés Brown, who recommended continuation of antibiotics at this time. Per the CT abdomen and pelvis, drain remains in the correct place and appears to be draining well. He is afebrile with no white count. Patient has had no intervention with resumption of blood pressure, but we will continue to monitor. At this time, patient says, "I don't know" when asked whether he wants to continue on further evaluation with colonoscopy to rule out perforation that could have caused the liver abscess and multibacterial bacteremia. He is currently DO NOT RESUSCITATE, DO NOT INTUBATE. Patient has a health care proxy, Sylvain. Patient says, "I'm sick of being moved around; I just want to be in one place," but he says, "whatever you think." Patient is undecided whether he wants to continue with further evaluation and treatment versus hospice or comfort measures only. He closed his eyes and did not want to further discuss the issues. 2. Atrial fibrillation, currently rate controlled. Continued on Xarelto. 3. Dementia, mild. Unable to make decisions. We will defer to the patient's son for further decisions. 4. History of peptic ulcers. Hemoglobin is stable on proton pump inhibitor (PPI). CT abdomen and pelvis showed no perforation. 5. Moderate ascites with portal hypertension with ascites. Currently on antibiotics. May need to do a paracentesis to further evaluate for additional peritonitis. 6. Atrial fibrillation. Not on metoprolol due to episodes of bradycardia and hypotension. Currently on oral anticoagulation. 7. Diabetes, controlled. Will put on sliding scale. 8. History of systolic and diastolic heart failure, ejection fraction (EF) of 40% with a grade 2 diastolic dysfunction. Lasix was not resumed due to history of azotemia and current complaint of hypotension. 9. Palliative care. Encounter was done during the previous admission. Patient would truly benefit from a family discussion along with the son regarding hospice and comfort measures in light of his recurrent issues and poor cardiac status. NAFISA
[2020-01-05] MEDS: LevoFLOXacin 500 MG TABLET PO SCH (05:52)
[2020-01-05] MEDS: metroNIDAZOLE (FLAGYL) 500 MG TAB PO SCH ×3 (05:52→21:16)
[2020-01-05 06:00] VITALS: BP 109/55
[2020-01-05 07:45] LABS: BASO % 0.4 % (0.0-1.0); EOS # 0.1 10^3/uL (0.0-0.5); EOS % 0.8 % (0.0-3.0); HEMATOCRIT 28.8 % (42.0-52.0); HEMOGLOBIN 10.3 g/dl (13.5-17.5); LYMPH # 1.1 10^3/uL (1.5-5.0); LYMPH % 15.3 % (24.0-44.0); MEAN CORPUSCULAR HGB CONC 35.8 g/dl (32.0-36.5); MONO # 0.5 10^3/uL (0.0-0.8); MONO % 7.5 % (0.0-5.0); NEUTROPHILS # 5.4 10^3/uL (1.5-8.5); NEUTROPHILS % 75.6 % (36.0-66.0); PLATELET COUNT, AUTOMATED 131 10^3/uL (150-450); RED BLOOD COUNT 3.43 10^6/uL (4.30-6.10); WHITE BLOOD COUNT 7.2 10^3/uL (4.0-10.0)
[2020-01-05] MEDS: OMEPRAZOLE 20 MG CAP PO SCH (08:22)
[2020-01-05] MEDS: SERTRALINE HCL 25 MG TABLET PO SCH (08:22)
[2020-01-05 08:31] LABS: ALBUMIN 1.3 GM/DL (3.2-5.2); BILIRUBIN,TOTAL 2.6 MG/DL (0.2-1.0); CALCIUM LEVEL 7.9 MG/DL (8.8-10.2); CREATININE FOR GFR 1.62 MG/DL (0.70-1.30); GLOMERULAR FILTRATION RATE 43.4 (>35); POTASSIUM SERUM 3.5 MEQ/L (3.5-5.1); TOTAL PROTEIN 5.6 GM/DL (6.4-8.2)
[2020-01-05] MEDS ORDERED: FUROSEMIDE 20 MG TAB PO SCH (09:00)
[2020-01-05 10:00] VITALS: BP 104/54
[2020-01-05 14:00] VITALS: BP 108/83
[2020-01-05 20:00] VITALS: BP 109/63
[2020-01-06] MEDS: metroNIDAZOLE (FLAGYL) 500 MG TAB PO SCH ×3 (05:29→21:19)
[2020-01-06] MEDS: LevoFLOXacin 500 MG TABLET PO SCH (05:29)
[2020-01-06 07:05] VITALS: BP 112/65
[2020-01-06 07:42] LABS: BASO % 0.4 % (0.0-1.0); EOS # 0.1 10^3/uL (0.0-0.5); HEMATOCRIT 27.7 % (42.0-52.0); HEMOGLOBIN 10.2 g/dl (13.5-17.5); LYMPH % 14.4 % (24.0-44.0); MEAN CORPUSCULAR HEMOGLOBIN 30.5 pg (27.0-33.0); MEAN CORPUSCULAR VOLUME 82.9 fl (80.0-96.0); MONO # 0.6 10^3/uL (0.0-0.8); MONO % 9.1 % (0.0-5.0); NEUTROPHILS # 5.2 10^3/uL (1.5-8.5); NEUTROPHILS % 74.7 % (36.0-66.0); PLATELET COUNT, AUTOMATED 144 10^3/uL (150-450); RED BLOOD COUNT 3.34 10^6/uL (4.30-6.10); WHITE BLOOD COUNT 6.9 10^3/uL (4.0-10.0)
[2020-01-06 07:54] LABS: MEAN CORPUSCULAR HGB CONC 36.8 g/dl (32.0-36.5)
[2020-01-06 07:59] LABS: CALCIUM LEVEL 7.9 MG/DL (8.8-10.2); CREATININE FOR GFR 2.07 MG/DL (0.70-1.30); GLOMERULAR FILTRATION RATE 32.7 (>35); POTASSIUM SERUM 3.4 MEQ/L (3.5-5.1)
[2020-01-06] MEDS: OMEPRAZOLE 20 MG CAP PO SCH (08:23)
[2020-01-06] MEDS: SERTRALINE HCL 25 MG TABLET PO SCH (08:23)
[2020-01-06 10:00] VITALS: BP 108/53
[2020-01-06] MEDS: NS 1,000 ML IV SCH ×2 (12:07→21:23)
[2020-01-06] MEDS ORDERED: POTASSIUM CHLORIDE 10 MEQ SR TABLET PO ONE (13:00)
[2020-01-06 14:00] VITALS: BP 80/40
--- NOTE | 2020-01-06 14:10 | IPNPDOC ---
Date Seen The patient was seen on 01/06/20. Progress Note Denies fever, chills, n/v/d. c/o slight discomfort but not pain in ruq. drain with bilious drainage. no other issues per RN. PHYSICAL EXAMINATION: VS: see below Generally: eating his hamburger and latvian fries sitting on a chair at the bedside. Patient is in no respiratory distress. No jugular venous distention (JVD). No thyromegaly. Patient has no cervical lymphadenopathy. Dry mucous membranes. Patient has clear lungs. No wheezing, rales, or rhonchi. Heart: S1, S2, regularly irregular. Abdomen: Is soft. Slightly tender on deep palpation, but no rebound, guarding. Positive bowel sounds times four quadrants. Drain has bilious material. Extremities: Chronic edema to the sacrum, 3+. LABORATORY DATA, IMAGING STUDIES, MICROBIOLOGY: pls see below ASSESSMENT AND PLAN: 84-year-old male, DO NOT RESUSCITATE, DO NOT INTUBATE, with liver abscess, polymicrobial bacteremia with Escherichia coli and Clostridium, currently on Levaquin and Flagyl and drainage.Infectious disease specialist has been consulted, Dr. Moisés Brown, who recommended continuation of antibiotics and further evaluation for the source of the bacteremia. Both the patient and his son Sylvain, agree with proceeding with colonoscopy. Dr. Villanueva GI consulted to schedule a nonemergent colonoscopy. Will discuss with IR on Wednesday if drain can be evaluated as it is draining bile. Atrial fibrillation, currently rate controlled. held xarelto in light of plans for colonoscopy with biopsy. no prior h/o cva. History of peptic ulcers. Hemoglobin is stable on proton pump inhibitor (PPI). CT abdomen and pelvis showed no perforation. Moderate ascites with portal hypertension with ascites. Currently on antibiotics. paracentesis ordered for Wednesday to for diagnostic purposes. Pt's son said pt used to be a binge ETOH drinker. Diabetes, controlled. consistent carbs diet with fingersticks qachs and insulin sliding scale with coverage. History of systolic and diastolic heart failure, ejection fraction (EF) of 40% with a grade 2 diastolic dysfunction. Lasix was not resumed due to history of azotemia . monitor i/o. VS, I&O, 24H, Fishbone Vital Signs/I&O Vital Signs Date Time Temp Pulse Resp B/P (MAP) Pulse Ox O2 Delivery O2 Flow Rate FiO2 5/30/20 10:00 96.6 72 18 108/53 (71) 95 Room Air I&O- Last 24 Hours up to 6 AM 01/06/20 06:00 Intake Total 620 ml Output Total 120 ml Balance 500 ml Laboratory Data 24H LABS Laboratory Tests 2 01/06/20 07:00: Immature Granulocyte % (Auto) 0.4, Neutrophils (%) (Auto) 74.7H, Lymphocytes (%) (Auto) 14.4L, Monocytes (%) (Auto) 9.1H, Eosinophils (%) (Auto) 1.0, Basophils (%) (Auto) 0.4, Neutrophils # (Auto) 5.2, Lymphocytes # (Auto) 1.0L, Monocytes # (Auto) 0.6, Eosinophils # (Auto) 0.1, Basophils # (Auto) 0.0, Nucleated Red Blood Cells % (auto) 0.0, Anion Gap 10, Glomerular Filtration Rate 32.7L, Calcium Level 7.9L CBC/BMP Laboratory Tests 01/06/20 07:00 Microbiology Microbiology 01/04/20 Blood Culture - Preliminary, Resulted No Growth after 48 hours. All Specime... 01/04/20 Blood Culture - Preliminary, Resulted No Growth after 48 hours. All Specime... GABRIELA FIGUEROA MD January 06, 2020 14:07
[2020-01-06 14:25] VITALS: BP 90/62
--- NOTE | 2020-01-06 14:36 | IPN ---
DATE: 01/05/2020 He remained afebrile overnight. Blood pressure was well maintained at 104-138 systolic. Patient has no new complaints aside from slight abdominal discomfort at the drain site. CT abdomen and pelvis showed hepatic drain in the correct position. There is no additional abscess noted. He has a moderate amount of abdominal and pelvic ascites similar to prior exam with stable left pleural fluid and adjacent parenchymal consolidation without any new findings. Patient is in a better mood this morning and is permitting us to proceed with colonoscopy to further find the etiology of the patient's bacteremia with Clostridium perfringens and Escherichia (E) coli. Dr. Villanueva has been consulted from gastroenterology to schedule a colonoscopy. Patient otherwise denies any nausea or vomiting, shortness of breath, chest pain, pressure, or tightness. Tolerating his diet well. No fevers or chills. Temperature 97.3, pulse 74, respiratory rate 20, blood pressure 104/54, 94% on room air. GENERAL: Patient is awake, alert, oriented to himself, place, and slightly disoriented to date. He is answering questions appropriately. He has no respiratory distress or use of respiratory accessory muscles. LUNGS: Clear to auscultation. No wheezes, rales, or rhonchi. HEART: S1, S2. Sinus rhythm. No murmurs, rubs, or gallops. ABDOMEN: Soft. Drain noted with bilious material in the right. Abdomen is otherwise soft, slightly tender in right upper quadrant. No rebound or guarding. Positive bowel sounds. EXTREMITIES: Chronic pitting edema, 3+. LABORATORY DATA: White count 7.3, hemoglobin 10, hematocrit 28, platelet count 131. Sodium 144, potassium 3.5, chloride 111, bicarbonate 21, BUN 18, creatinine 1.62, glucose of 78. CT abdomen and pelvis: As dictated above. ASSESSMENT AND PLAN: This is an 84-year-old male, DO NOT RESUSCITATE/DO NOT INTUBATE, who was previously admitted in December 2019 due to worsening shortness of breath, dry cough for 2 weeks. Was found to have a left lower lobe pneumonia complicated by atrial fibrillation with rapid ventricular response (RVR), rate of 140-150. He was found to have a white count of 13,000. At that time CT abdomen and pelvis showed right colonic colitis. He was treated with vancomycin and meropenem due to penicillin allergy. COVID testing was negative. He was initially resuscitated with 2 liters of intravenous (IV) fluids and was put on Levophed drip in the emergency room (ER). He then improved and was titrated off Levophed drip. Developed acute hypoxic respiratory failure and fluid overload and was started on IV Lasix for congestive heart failure and was found to have systolic dysfunction. On 12/01/2019, echo with ejection fraction (EF) of 40%-45%, mild tricuspid regurgitation, and mild pulmonary hypertension. Trace mitral regurgitation (MR). Blood cultures grew out Clostridium perfringens and Escherichia (E) coli. Repeat CT abdomen and pelvis showed a liver abscess. Patient was found to have Amanda albicans. Abscess culture with pseudomonas, Enterococcus faecium, and Klebsiella pneumoniae. Hepatic drain was placed by interventional radiology. Patient defervesced and was discharged to complete antibiotics at the longterm at [facility], where he was taking Levaquin and Flagyl. Patient was then brought into the emergency room yesterday due to findings of low blood pressure, which was documented as 103/76. Without intervention, patient went up to 121/61. Patient is admitted for further evaluation of the liver abscess and received 1 liter of IV fluids from the emergency room with subsequent improvement to 128/76. Overnight he has had no fevers, no chills, no white count. Sedimentation rate was 42 and C-reactive protein (CRP) of 1.74. Per infectious disease specialist, Dr. Brown, patient is to be continued on the same antibiotics, Levaquin and Flagyl. He is currently being evaluated for potential source of the liver abscess from the bacteremia with Amanda, Clostridium, and E. coli for a colonoscopy. CURRENT ISSUES: 1. Hepatic abscess. Possible source would be bacteremia secondary to a perforated colon. He did have colitis on CT abdomen and pelvis when he was initially admitted in November, for which he was also treated for a left lower lobe pneumonia, septic shock. GI has been consulted for colonoscopy. He is continued on Levaquin and Flagyl and remains afebrile with normal white count and sedimentation rate and CRP decreasing from a month ago. ID has been consulted. 2. Congestive heart failure. Patient did receive IV fluids on arrival yesterday. His Lasix has been withheld due to hypotension. He currently appears to be euvolemic. No complaints of shortness of breath. Will continue on strict intake and output and daily weights, fluid restriction of 2 liters. 3. Depression, on chronic Zoloft. 4. Reflex, on Prilosec. 5. History of atrial fibrillation with RVR. Patient is currently rate controlled. Not on any rate-control medications. Heart rate is ranging between 74-78 this morning. He is continued on Xarelto, which we will hold due to plans for colonoscopy and possible biopsy. 6. Deep vein thrombosis (DVT) prophylaxis. Currently wears compression stockings. AYANAD
[2020-01-06 18:41] LABS: CALCIUM LEVEL 7.7 MG/DL (8.8-10.2); CREATININE FOR GFR 2.31 MG/DL (0.70-1.30); GLOMERULAR FILTRATION RATE 28.8 (>35); POTASSIUM SERUM 3.4 MEQ/L (3.5-5.1)
[2020-01-06 19:51] VITALS: BP 114/73
[2020-01-07 02:00] VITALS: BP 116/60
[2020-01-07 06:00] VITALS: BP 111/63
[2020-01-07] MEDS: metroNIDAZOLE (FLAGYL) 500 MG TAB PO SCH ×3 (06:10→22:03)
[2020-01-07] MEDS: LevoFLOXacin 500 MG TABLET PO SCH (06:10)
[2020-01-07 06:59] LABS: BASO % 0.6 % (0.0-1.0); EOS # 0.1 10^3/uL (0.0-0.5); EOS % 1.2 % (0.0-3.0); HEMATOCRIT 27.4 % (42.0-52.0); LYMPH # 0.8 10^3/uL (1.5-5.0); LYMPH % 12.2 % (24.0-44.0); MEAN CORPUSCULAR HEMOGLOBIN 30.1 pg (27.0-33.0); MEAN CORPUSCULAR HGB CONC 36.5 g/dl (32.0-36.5); MEAN CORPUSCULAR VOLUME 82.5 fl (80.0-96.0); MONO # 0.5 10^3/uL (0.0-0.8); MONO % 7.8 % (0.0-5.0); NEUTROPHILS # 5.3 10^3/uL (1.5-8.5); NEUTROPHILS % 77.6 % (36.0-66.0); PLATELET COUNT, AUTOMATED 142 10^3/uL (150-450); RED BLOOD COUNT 3.32 10^6/uL (4.30-6.10); WHITE BLOOD COUNT 6.9 10^3/uL (4.0-10.0)
[2020-01-07 07:28] LABS: CALCIUM LEVEL 7.7 MG/DL (8.8-10.2); CREATININE FOR GFR 2.44 MG/DL (0.70-1.30); GLOMERULAR FILTRATION RATE 27.1 (>35); POTASSIUM SERUM 3.5 MEQ/L (3.5-5.1)
[2020-01-07] MEDS: SERTRALINE HCL 25 MG TABLET PO SCH (07:55)
[2020-01-07] MEDS: OMEPRAZOLE 20 MG CAP PO SCH (07:56)
[2020-01-07] MEDS ORDERED: FUROSEMIDE 20MG/2ML VIAL (J1940) IV ONE (09:00)
[2020-01-07 10:15] VITALS: BP 118/66
--- NOTE | 2020-01-07 10:34 | IPNPDOC ---
Date Seen The patient was seen on 01/07/20. Progress Note "I don't feel good today." no nausea. increased abd distention. increased LE edema . urinated o n himself x 2, "they couldn't help me fast enough." creatinine worsened, with increased LE edema, with pain 4/10. no fever or chills.decreased appetite. PHYSICAL EXAMINATION: VS: see below Generally:in bed. No thyromegaly. Patient has no cervical lymphadenopathy. Dry mucous membranes. lungs: crackles b/l diminished Heart: S1, S2, regularly irregular. Abdomen: Is soft. distended (+) fluid wave.on deep palpation, but no rebound, guarding. Positive bowel sounds times four quadrants. Drain has bilious material. Extremities: Chronic edema to the sacrum, 3+. LABORATORY DATA, IMAGING STUDIES, MICROBIOLOGY: pls see below ASSESSMENT AND PLAN: 84-year-old male, DO NOT RESUSCITATE, DO NOT INTUBATE, with liver abscess, polymicrobial bacteremia with Escherichia coli and Clostridium, c onLevaquin and Flagyl and drainage IR consulted ot check position of drain GI consulted for colonoscopy Atrial fibrillation, currently rate controlled. - held xarelto in light of plans for colonoscopy with biopsy. no prior h/o cva. Acute on CKD3 -fluid overloaded with anasarca -dc'ed ivfluids due to worsening edema and ascites -consulted nephrology for fluid mgt -check renal us -strict i/o, daily weights,renal us. -check bladder us, pvr, solorio vs intermittent cath -trial of flomax History of peptic ulcers. Hemoglobin is stable on proton pump inhibitor (PPI). CT abdomen and pelvis showed no perforation. Moderate ascites with portal hypertension with ascites. - paracentesis ordered for Wednesday to for diagnostic purposes. Pt's son said pt used to be a binge ETOH drinker. Diabetes, controlled. consistent carbs diet with fingersticks qachs and insulin sliding scale with coverage. History of systolic and diastolic heart failure, ejection fraction (EF) of 40% with a grade 2 diastolic dysfunction,decompensated -worsening renal function, -nephrology consulted forfluid management. -check cxr. VS, I&O, 24H, Fishbone Vital Signs/I&O Vital Signs Date Time Temp Pulse Resp B/P (MAP) Pulse Ox O2 Delivery O2 Flow Rate FiO2 01/07/20 06:00 96.2 85 18 111/63 (79) 95 Room Air I&O- Last 24 Hours up to 6 AM 01/07/20 06:00 Intake Total 1560 ml Output Total 150 ml Balance 1410 ml Laboratory Data 24H LABS Laboratory Tests 2 01/06/20 18:05: Anion Gap 8, Glomerular Filtration Rate 28.8L, Lactic Acid Level 1.6, Calcium Level 7.7L 01/07/20 06:39: Anion Gap 9, Glomerular Filtration Rate 27.1L, Calcium Level 7.7L, Immature Granulocyte % (Auto) 0.6, Neutrophils (%) (Auto) 77.6H, Lymphocytes (%) (Auto) 12.2L, Monocytes (%) (Auto) 7.8H, Eosinophils (%) (Auto) 1.2, Basophils (%) (Auto) 0.6, Neutrophils # (Auto) 5.3, Lymphocytes # (Auto) 0.8L, Monocytes # (Auto) 0.5, Eosinophils # (Auto) 0.1, Basophils # (Auto) 0.0, Nucleated Red Blood Cells % (auto) 0.0 CBC/BMP Laboratory Tests 01/06/20 18:05 01/07/20 06:39 Microbiology Microbiology 01/04/20 Blood Culture - Preliminary, Resulted No Growth after 48 hours. All Specime... 01/04/20 Blood Culture - Preliminary, Resulted No Growth after 48 hours. All Specime... GABRIELA FIGUEROA MD January 07, 2020 10:03
--- NOTE | 2020-01-07 11:45 | REP ---
CHEST, TWO VIEWS: Two views of the chest are performed and compared to prior studies, most recently 12/22/2019. Left basilar pleural and parenchymal opacity remains stable. No new infiltrate is seen bilaterally. The heart is not enlarged. There are degenerative changes of the spine. IMPRESSION: Stable left basilar pleural and parenchymal opacities. Electronically Signed by Kishan Torres MD 01/07/2020 12:28 P
[2020-01-07 14:11] VITALS: BP 125/73
--- NOTE | 2020-01-07 15:24 | REP ---
RENAL ULTRASOUND: Real-time sonographic evaluation of kidneys performed. Kidneys are normal in size and echotexture, right kidney measuring 12.3 x 6.1 x 4.9 cm and left kidney 11.1 x 5.3 x 5.0 cm. There is no hydronephrosis or renal mass seen bilaterally. Incidental note is made of moderate ascites. Ureteral jets are seen in the urinary bladder bilaterally with Doppler color evaluation. IMPRESSION: No hydronephrosis bilaterally. Electronically Signed by Kishan Torres MD 01/07/2020 03:34 P
[2020-01-07 19:38] VITALS: BP 109/56
[2020-01-08 02:00] VITALS: BP 110/60
[2020-01-08 05:25] VITALS: BP 107/62
[2020-01-08] MEDS: metroNIDAZOLE (FLAGYL) 500 MG TAB PO SCH ×3 (05:45→21:33)
[2020-01-08] MEDS: LevoFLOXacin 250 MG TABLET PO SCH (05:45)
[2020-01-08 07:17] LABS: BASO % 0.5 % (0.0-1.0); EOS # 0.1 10^3/uL (0.0-0.5); EOS % 1.6 % (0.0-3.0); HEMATOCRIT 26.5 % (42.0-52.0); HEMOGLOBIN 9.6 g/dl (13.5-17.5); LYMPH # 0.8 10^3/uL (1.5-5.0); MEAN CORPUSCULAR HEMOGLOBIN 30.1 pg (27.0-33.0); MEAN CORPUSCULAR HGB CONC 36.2 g/dl (32.0-36.5); MEAN CORPUSCULAR VOLUME 83.1 fl (80.0-96.0); MONO # 0.5 10^3/uL (0.0-0.8); MONO % 7.9 % (0.0-5.0); NEUTROPHILS # 4.9 10^3/uL (1.5-8.5); NEUTROPHILS % 77.2 % (36.0-66.0); PLATELET COUNT, AUTOMATED 124 10^3/uL (150-450); RED BLOOD COUNT 3.19 10^6/uL (4.30-6.10); WHITE BLOOD COUNT 6.3 10^3/uL (4.0-10.0)
[2020-01-08 07:37] LABS: CALCIUM LEVEL 7.8 MG/DL (8.8-10.2); CREATININE FOR GFR 2.67 MG/DL (0.70-1.30); GLOMERULAR FILTRATION RATE 24.4 (>35); POTASSIUM SERUM 3.6 MEQ/L (3.5-5.1)
[2020-01-08 07:42] LABS: ALBUMIN 1.5 GM/DL (3.2-5.2); TOTAL PROTEIN 5.5 GM/DL (6.4-8.2)
[2020-01-08] MEDS: FUROSEMIDE 20 MG TAB PO SCH (08:42)
[2020-01-08] MEDS: OMEPRAZOLE 20 MG CAP PO SCH (08:42)
[2020-01-08] MEDS: SERTRALINE HCL 25 MG TABLET PO SCH (08:42)
--- NOTE | 2020-01-08 09:00 | CR ---
DATE OF CONSULTATION: 01/05/2020 I was asked to consult by Dr. Vasquez for followup on intra-abdominal abscess. HISTORY OF PRESENT ILLNESS: Mr. Tamayo is an 84-year-old gentleman known to me from previous admissions. The patient was initially hospitalized from 12/01/2019 and discharged on 12/15/2019 with intra-abdominal abscess of the liver status post drainage. He initially had blood cultures that were positive for E-coli and Clostridium perfringens and sputum culture had ESBL Klebsiella. Eventually, he was noted to have a right upper quadrant abscess that was drained by Dr. Kline on 12/11/2019 and culture of that abscess had Klebsiella with positive ESBL. The patient had the drain left in place and was treated with initially meropenem on 12/01/2019 to 12/05/2019 and then ceftriaxone. Once the abdominal abscess was found to be a Klebsiella and ESBL, he was switched to meropenem again and discharged to the residential on 12/15/2019 on Invanz. The patient was on Invanz (ertapenem) from 12/14/2019 to 12/25/2019. came back to [facility] on the with worsening weakness and he had some cultures drawn from the drain that was placed 10 days prior. The cultures from that drain had Klebsiella pneumoniae, but now had carbapenems resistant Enterobacteriaceae, Pseudomonas and Enterococcus faecium. I did not believe these cultures were real, but more colonization of the drainage tube. He was treated with Avycaz for 5 days from 12/29/2019 to 01/03/2020 cover for CRE. The patient improved with hydration and was discharged on 01/03/2020 to rehab at a [facility]. The next day, he was found to have mild hypotension. The patient really did not have any symptoms. He was brought back from the residential. His bilirubin was slightly elevated at 1.5 with an increase in alkaline phosphatase and therefore there was concern that there was some blockage in the drain and he was again admitted. When asked why he was admitted, the patient states, "I am not sure, I was eating breakfast and they decided to transfer me back here". He has had no fever or chills. No nausea, vomiting, diarrhea or abdominal pain. The drainage from the liver abscess is mostly green bile. There is no purulence in it over foul smelling. PAST MEDICAL HISTORY: Significant for COPD not oxygen or steroid dependent, chronic kidney disease stage III, abdominal aortic aneurysm, cervical spinal stenosis, pericardial effusion with a window, chronic diastolic heart failure, mild dementia, hypertension, type 2 diabetes, liver abscess workup has not been done to find the source, GI bleed with peptic ulcer disease. PAST SURGICAL HISTORY: Pericardiotomy, sternotomy with xiphoidectomy in 2013, partial gastric resection in 1963, hernia repair, and cholecystectomy. SOCIAL HISTORY: Quit smoking recently. He drank at least two to three beers a day before he was put at the residential a month ago. His healthcare proxy is Sylvain Tamayo, his son, [phone]. He has been a since 2005. FAMILY HISTORY: Not revealing. REVIEW OF SYSTEMS: He complains of some weakness. No nausea, vomiting or diarrhea. No abdominal pain. He has mild shortness of breath with exertion. No chest pain. PHYSICAL EXAMINATION: Temperature is 98, pulse 72, respirations 20, blood pressure 131/64, O2 sat 94% on room air. General Appearance: Elderly gentleman in no acute distress. HEENT: Neck is supple. Dry mucous membranes. Chapped lips. No adenopathy. No jugular venous distention (JVD). No carotid bruits. Heart: Normal S1, S4. Irregular. No murmurs appreciated. Lungs: Clear. Diminished. No wheezes, rales or rhonchi. Abdomen: Soft, nontender. No visceromegaly. There is a drain in the right upper quadrant with bilious greenish material. No purulence. Soft. Nontender. No rebound. Extremities: +2 pitting edema bilaterally. Neurologic: Exam normal. Motor strength. normal. Alert and oriented x3. LABORATORY DATA: Labs for 01/05/2020, white count 7.2, hemoglobin 10.3, hematocrit 28.8, platelets 131, 75% neutrophils, 15% lymphocytes, and 7% monocytes. Sodium 144, potassium 3.5, chloride 111, bicarb 21, BUN 18, creatinine 1.62, glucose 78, calcium 7.9, bilirubin 2.6, AST 68, ALT 18, alkaline phosphatase 508, total protein 5.6, albumin 1.3. Blood cultures two sets are no growth after 24 hours IMAGING STUDIES: Abdominal pelvic CT was reviewed with Dr. Godfrey. Moderate abdominal and pelvic ascites appears similar to previous exam. Drainage catheter in known liver abscess, that abscess has decreased in size from 4.5 to 3.[address] Godfrey. There is a stable left pleural effusion with adjacent consolidation. No new findings. This report was read by Dr. Torres and reviewed with Dr. Godfrey. ALLERGIES: - PENICILLIN - MORPHINE MEDICATIONS: - Omeprazole 20 mg by mouth daily - Zoloft 25 mg by mouth daily - levofloxacin 500 mg daily - metronidazole 500 mg by mouth every 8 hours - Tylenol as needed - calcium carbonate as needed - milk of magnesia as needed - metoclopramide as needed 10 mg before meals and at bedtime IMPRESSION: This is an 84-year-old gentleman who was admitted for mild hypotension from the residential. He had a chronic liver abscess with polymicrobial marianela, initially bacteremia with E-coli and Clostridium perfringens on 12/01/2019, then an abdominal abscess drained on 12/11/2019 with Klebsiella, ESBL and Amanda albicans. Then on 12/23/2019, another culture was sent from the drain that was not sterile and had Klebsiella, carbapenems resistant, Pseudomonas and Enterococcus faecium. Per review of CT, the abdominal abscess has decreased in size. His drainage is functioning. His LFTs have increased with a slight increase in bilirubin. His ascites persists and the patient complains of some bloating. He was slightly hypotensive, probably related to dehydration. I do not think the problem is the abscess at this point, but possibly liver cirrhosis with decompensation ascites. My other concern is whether this drain is still draining an abscess or if there is some biliary fistula. PLAN: This case was discussed at length with Dr. Vasquez and Dr. Villanueva. I recommended that the patient has a workup of his ascites, whether it is related to liver cirrhosis or metastatic. He had a paracentesis done last hospitalization, but cytology was not sent . Due to moderate ascites and the fact that he is bloated, I would suggest doing another paracentesis for cytology. I suggest obtaining a colonoscopy to rule out malignancy that caused this initial Clostridium and polymicrobial bacteremia. Depending on finding, will treat him accordingly. Reconsult Dr. Kline regarding drain to make sure that it is at the abscess cavity and when it should be changed or removed. Continue with by mouth levofloxacin and Flagyl, that should cover most of the pathogens he has except for the ESBL/CRE Klebsiella, but he has received enough carbapenems including a total of 19 days.
[2020-01-08 10:00] VITALS: BP 112/64
--- NOTE | 2020-01-08 10:54 | IPNPDOC ---
Date Seen The patient was seen on 01/08/20. Progress Note Renal function continue to worsen overnight with creatinine 2.67, but [id number], with c/o increasing abdominal distention, but no sob, chest pain, pressure, tightness, n/v/abd pain. "I just don't feel good." urine output 1.2 yesterday. pt denies any fever, chills. c/o generalized weakness. no PND, orthopnea. has not gotten out of bed yet. PHYSICAL EXAMINATION: VS: see below I/O: see below Generally:in bed. No thyromegaly. Patient has no cervical lymphadenopathy. Dry mucous membranes. no respiratory distress or use of respiratory accessory muscles. no conversational dyspnea, tracheal deviation, or stridor. lungs: crackles b/l diminished Heart: S1, S2, regularly irregular. Abdomen: Is soft. distended (+) fluid wave.on deep palpation, but no rebound, guarding. Positive bowel sounds times four quadrants. Drain has bilious material. nontender Extremities: Chronic edema to the sacrum, 3+. LABORATORY DATA, IMAGING STUDIES, MICROBIOLOGY: pls see below ASSESSMENT AND PLAN: 84-year-old male, DO NOT RESUSCITATE, DO NOT INTUBATE, with liver abscess, polymicrobial bacteremia onLevaquin and Flagyl and drainage IR consulted to check position of drain GI consulted for colonoscopy etiology unknown ? perforated viscus. ID consulted Atrial fibrillation, currently rate controlled. - held xarelto in light of plans for colonoscopy with biopsy. - no prior h/o cva. Acute on CKD3 -fluid overloaded with anasarca -dc'ed ivfluids due to worsening edema and ascites -consulted nephrology for fluid mgt - renal us reviewed -strict i/o, daily weights, - bladder scan by RN, pvr, solorio vs intermittent cath -trial of flomax History of peptic ulcers. Hemoglobin is stable on proton pump inhibitor (PPI). CT abdomen and pelvis showed no perforation. Moderate ascites with portal hypertension with ascites. - paracentesis ordered today for diagnostic purposes. -Pt's son said pt used to be a binge ETOH drinker. Diabetes, controlled. consistent carbs diet with fingersticks qachs and insulin sliding scale with coverage. History of systolic and diastolic heart failure, ejection fraction (EF) of 40% with a grade 2 diastolic dysfunction,decompensated -worsening renal function, -nephrology consulted forfluid management. code status: DNR/DNI VS, I&O, 24H, Fishbone Vital Signs/I&O Vital Signs Date Time Temp Pulse Resp B/P (MAP) Pulse Ox O2 Delivery O2 Flow Rate FiO2 01/08/20 05:25 96.9 75 17 107/62 (77) 97 Room Air I&O- Last 24 Hours up to 6 AM 01/08/20 06:00 Intake Total 2990 ml Output Total 1410 ml Balance 1580 ml Laboratory Data 24H LABS Laboratory Tests 2 01/08/20 06:34: Immature Granulocyte % (Auto) 0.8, Neutrophils (%) (Auto) 77.2H, Lymphocytes (%) (Auto) 12.0L, Monocytes (%) (Auto) 7.9H, Eosinophils (%) (Auto) 1.6, Basophils (%) (Auto) 0.5, Neutrophils # (Auto) 4.9, Lymphocytes # (Auto) 0.8L, Monocytes # (Auto) 0.5, Eosinophils # (Auto) 0.1, Basophils # (Auto) 0.0, Nucleated Red Blood Cells % (auto) 0.0, Anion Gap 8, Glomerular Filtration Rate 24.4L, Calcium Level 7.8L, Lactate Dehydrogenase 203, Total Protein 5.5L, Albumin 1.5L CBC/BMP Laboratory Tests 01/08/20 06:34 Microbiology Microbiology 01/04/20 Blood Culture - Preliminary, Resulted No Growth after 72 hours. All specime... 01/04/20 Blood Culture - Preliminary, Resulted No Growth after 72 hours. All specime... GABRIELA FIGUEROA MD Jan 08, 2020 10:54
--- NOTE | 2020-01-08 14:28 | CR ---
DATE OF CONSULTATION: 01/07/2020 CONSULTATION FOR: Cheryle Vasquez MD REASON FOR CONSULTATION: Acute renal failure superimposed on chronic kidney disease. HISTORY OF PRESENT ILLNESS: Mr. Tamayo is an 84-year-old gentleman, who is in residential resident with multiple chronic medical problems, including diabetes, hypertension, congestive heart failure, chronic obstructive pulmonary disease (COPD) and chronic kidney disease. He was recently admitted to [facility] with liver abscess and had a drain placed. He has been on antibiotics and was discharged back to residential. He was hypotensive due to which he was sent to [facility] Emergency Room again on 01/04/2020. He is being treated with Levaquin and metronidazole. His kidney function have worsened over last few days due to which a renal consult was requested today and patient is seen this evening on his bedside. The patient has known dementia and he is not able to provide much useful information. PAST MEDICAL AND SURGICAL HISTORY (significant for): 1. History of type 2 diabetes. 2. Chronic diastolic congestive heart failure. 3. Chronic kidney disease, stage III. 4. History of atrial fibrillation. 5. History of peptic ulcer disease. 6. History of COPD. 7. Dementia. 8. Prior history of pericardial effusion, status post window. 9. History of gastrointestinal (GI) bleed. 10. History of pneumonia. 11. History of liver abscess, status post drainage. 12. History of spinal stenosis. Past surgical history is significant for a pericardial window, partial gastric resection for peptic ulcer disease in remote past, history of hernia repair, and history of cholecystectomy. PERSONAL AND SOCIAL HISTORY: Patient is currently in residential. He is . He is a former smoker and has no history of alcohol use. FAMILY HISTORY: Noncontributory. REVIEW OF SYSTEMS: The patient is a poor historian. He did not have any fever or chills. He was admitted due to hypotension and is being treated for a liver abscess. He is also noticed to have ascites on the CAT scan and abdominal aortic aneurysm was also noticed. Patient has history of pneumonia recently and COPD. He denies any hemoptysis or pleuritic type of chest pain. GI system is significant for abdominal distension, poor appetite and history of liver abscess requiring drainage. Genitourinary () system is significant for chronic kidney disease. Patient denies any difficulty voiding. Musculoskeletal system is significant for lower extremity edema, spinal stenosis and arthritis. Psychosocial system is significant for dementia. Neurological system negative for seizures or stroke known. Hematological system is significant for chronic anemia. He is not on any anticoagulation. MEDICATIONS: His current medications in the hospital include: - Tylenol 650 mg as needed pain and fever - Dulcolax suppository 10 mg per rectum as needed constipation - calcium carbonate 500 mg as needed indigestion - levofloxacin 500 mg daily - metoclopramide 10 mg before meals and at bedtime - metronidazole 500 mg every 8 hours - Milk of Magnesia 10 mL daily as needed constipation - omeprazole 20 mg daily - Zoloft 25 mg daily ALLERGIES: Patient has allergy to PENICILLIN and MORPHINE. PHYSICAL EXAMINATION: Elderly gentleman lying in the bed without any acute distress. Temperature 96.9 degrees Fahrenheit, heart rate 70 per minute and respiratory rate 18 per minute. Blood pressure 109/56 mmHg and oxygen saturation 95% on room air. Head is atraumatic. Neck: Supple and jugular venous distention (JVD) not seem to be abnormally elevated. Ears, nose, and throat are unremarkable. There is no oral thrush or ulcers. Heart sounds are regular, and lungs with slightly diminished breath sounds at bases and poor inspiratory effort. I did not hear any wheezing or rales. Abdomen is distended with ascites. A right upper quadrant drain is draining bile in the bag. Ascites is present. Extremities have no cyanosis or clubbing. Lower extremity edema is 3+ bilaterally. Neurologically, he is awake, confused and not very well oriented. LABORATORY DATA: Today's labs show WBC count 6.9, hemoglobin 10.0 and hematocrit 27.4. On admission, hemoglobin was 10.8 and hematocrit 29.2. Platelets today 142. Sodium is 145, potassium 3.5, CO2 23, BUN 25 and creatinine 2.44. Glucose 150 and calcium 7.7. On admission, his BUN was 18 and creatinine 1.62. During his previous admission his creatinine was in the range of 1.4-1.5, however, prior to this his creatinine has been 1.1-1.2 range. Abdominal CAT scan during this admission was done, which showed no hydronephrosis. He does have abdominal aortic aneurysm without any rupture. He does have ascites and drain in the liver. PROBLEMS: 1. Acute renal failure superimposed on chronic kidney disease most likely related to abscess in his liver and antibiotics. His glomerular filtration rate (GFR) today is down to 27. I would recommend to cut down Levaquin dose to 250 mg every 24 hours. He denies any difficulty voiding but bladder should be scanned to rule out any possibility of a high postvoid residual. He does not seem to be dehydrated and in fact has significant peripheral edema and ascites which will probably require mild diuresis. 2. Hypotension with liver abscess. Most likely his hypotension is related to infection. He is not dehydrated and IV fluid has already been stopped, which is appropriate. I would recommend to drain his ascites also to rule out any possibility of infection. Metronidazole and Levaquin can continue with renal adjusted dose. 3. Anemia. At present, his anemia is stable and does not need any urgent intervention. Thank you for involving me in the care of Mr. Tamayo. I will follow him along with you.
[2020-01-08 15:09] LABS: BILIRUBIN,DIRECT 2.1 MG/DL (0.0-0.2)
[2020-01-08 15:44] LABS: APPEARANCE, BODY FLUID HAZY (CLEAR); ASCITES FL COLOR YELLOW (COLORLESS); SOURCE, BODY FLUID ASCITES; SPEC. GRAVITY BODY FLUIDS 1.011 (NOT ESTABLISHED)
[2020-01-08 16:11] LABS: SOURCE, BODY FLUID ALBUMIN ASCITES; SOURCE, BODY FLUID GLUCOSE ASCITES; SOURCE, BODY FLUID TOT PROTEIN ASCITES; TOTAL PROTEIN, BODY FLUID 1.1 G/DL (NOT ESTABLISHED)
--- NOTE | 2020-01-08 16:46 | IPN ---
DATE OF SERVICE: 01/08/2020 Mr. Tamayo was seen and examined this morning during bedside rounds. He was sitting up comfortably in a chair eating his breakfast. He really has no complaints today, and he states that his name was Sidney this morning not Mr. Tamayo. He states, he is feeling much better. He has no complaints and he is tolerating his breakfast with no problems. Overnight no events were reported. He was afebrile with a regular heart rate and has been tolerating his antibiotics very well. The patient denies any fevers, chills, night sweats, abdominal discomfort, nausea, vomiting, diarrhea. He continues to have the pigtail catheter in his right upper quadrant that has bilious greenish discharge but no purulence noted on it. PHYSICAL EXAMINATION: VITAL SIGNS: Temperature 96.9, pulse 75 and regular, respirations 17, blood pressure 107/62 (77), pulse oximetry 97% on room air. Intake total 2940 mL, output total 1240 mL with a balance of positive 1700 mL. No bowel movements. No weight was reported this morning. GENERAL: This is a very pleasant 84-year-old male who looks stated age, very elderly, alert and oriented times three, in no acute distress. HEENT: Atraumatic, normocephalic. Dry mucous membranes. No jugular venous distention (JVD) noted. HEART: Irregularly irregular but rate controlled. LUNGS: Clear to auscultate. Diminished breath sounds but no audible wheezing or rhonchi. ABDOMEN: Soft, nontender. Does have a percutaneous drainage on the right upper quadrant that is bilious and green in color but no purulence. Nontender to touch. No nd. EXTREMITIES: 1-2+ pitting edema bilaterally, nothing too significant NEUROLOGIC: Alert and oriented times three. No focal deficits noted. LABORATORY DATA: WBC 6.3, hemoglobin 9.6, hematocrit 26.5, platelets 124. Chemistry: Sodium 144, potassium 3.6, chloride 113, carbon dioxide 23, anion gap 8, BUN 29, creatinine 2.67, fasting glucose 122, albumin 1.5. ASSESSMENT AND PLAN: 1. Acute kidney injury. His BUN and creatinine initially on admission was 18/1.62, respectively. This morning his BUN and creatinine is 29/2.67, respectively. It is slightly worse and we have adjusted his Levaquin dose from 500 mg daily to 250 mg daily. He is being diuresed gently with 20 mg oral daily and he is not on any nephrotoxic drugs. At this current time, we will continue to monitor. He is tolerating a good oral intake and we are currently awaiting for the urinalysis that we put in yesterday and will followup to see if he is building any protein. At this current time, he does have some urine output so will continue to monitor. No dialysis or intervention needed at current time. Will continue to monitor. Renal ultrasound done on 01/07/2020 shows negative exam. 2. Liver abscess. He is currently getting treated for a liver abscess and being followed by Dr. Brown outpatient. He has a percutaneous drainage on the right upper quadrant, is tolerating his lower dose Levaquin as well as the Flagyl. 4. Atrial fibrillation. Currently rate controlled. His anticoagulation is on hold for possible colonoscopy to rule a GI malignancy. 5. Moderate ascites with portal hypertension ascites. Status post paracentesis. Currently awaiting workup. Will continue to monitor. Will followup results.
--- NOTE | 2020-01-08 17:15 | REP ---
Ultrasound-guided paracentesis The procedure was performed under the direct supervision of Dr. Torres. The risks and benefits of the procedure were explained to the patient and informed consent was obtained. The largest pocket of fluid was localized in the left lower quadrant using ultrasound guidance. The skin was prepped and draped in a sterile fashion. 1% lidocaine was used as a local anesthetic. An 8-Sudanese multi side-hole catheter was inserted using trocar technique. 4600 ml of yellow fluid was withdrawn with a sample sent to the lab for analysis. The patient tolerated the procedure well and there were no immediate complications. After the appropriate amount of monitored convalescence the patient was discharged from the department. Electronically Signed by ELIOT Le 01/08/2020 04:21 P Electronically Signed by Kishan Torres MD 01/08/2020 05:04 P
[2020-01-08 18:30] LABS: ALBUMIN 1.5 GM/DL (3.2-5.2); ALT/SGPT 20 U/L (12-78); BILIRUBIN,DIRECT 2.3 MG/DL (0.0-0.2); BILIRUBIN,TOTAL 3.3 MG/DL (0.2-1.0); FERRITIN 615 NG/ML (26-388); IRON (FE) 73 UG/DL (65-175); PERCENT SATURATION 114.1 % (19.7-50.0); TOTAL IRON BINDING CAPACITY 64 UG/DL (250-450); TOTAL PROTEIN 5.7 GM/DL (6.4-8.2)
[2020-01-08 18:35] LABS: MONO REFLEX EBV VCA IgM NEGATIVE (NEGATIVE)
[2020-01-08 20:02] VITALS: BP 107/63
[2020-01-09] VITALS (10 sets, daily range): BP systolic 96–123; BP diastolic 42–72
[2020-01-09] MEDS: LevoFLOXacin 250 MG TABLET PO SCH (06:04)
[2020-01-09] MEDS: metroNIDAZOLE (FLAGYL) 500 MG TAB PO SCH ×3 (06:04→21:17)
[2020-01-09 06:30] LABS: INR 1.3; PROTHROMBIN TIME 15.9 SECONDS (11.8-14.0)
[2020-01-09 06:31] LABS: PARTIAL THROMBOPLASTIN TIME 37.5 SECONDS (25.0-38.4)
[2020-01-09 06:40] LABS: BASO % 0.5 % (0.0-1.0); EOS # 0.1 10^3/uL (0.0-0.5); EOS % 1.9 % (0.0-3.0); HEMATOCRIT 26.7 % (42.0-52.0); HEMOGLOBIN 9.7 g/dl (13.5-17.5); LYMPH # 0.8 10^3/uL (1.5-5.0); MEAN CORPUSCULAR HEMOGLOBIN 29.8 pg (27.0-33.0); MEAN CORPUSCULAR HGB CONC 36.3 g/dl (32.0-36.5); MEAN CORPUSCULAR VOLUME 82.2 fl (80.0-96.0); MONO # 0.4 10^3/uL (0.0-0.8); MONO % 7.5 % (0.0-5.0); NEUTROPHILS # 4.4 10^3/uL (1.5-8.5); NEUTROPHILS % 76.1 % (36.0-66.0); PLATELET COUNT, AUTOMATED 111 10^3/uL (150-450); RED BLOOD COUNT 3.25 10^6/uL (4.30-6.10); WHITE BLOOD COUNT 5.8 10^3/uL (4.0-10.0)
[2020-01-09 06:41] LABS: CALCIUM LEVEL 7.8 MG/DL (8.8-10.2); CREATININE FOR GFR 2.88 MG/DL (0.70-1.30); GLOMERULAR FILTRATION RATE 22.4 (>35); POTASSIUM SERUM 3.5 MEQ/L (3.5-5.1)
[2020-01-09] MEDS ORDERED: POTASSIUM CHLORIDE 10 MEQ SR TABLET PO ONE (08:00)
[2020-01-09] MEDS: SERTRALINE HCL 25 MG TABLET PO SCH (09:21)
[2020-01-09] MEDS: FUROSEMIDE 20 MG TAB PO SCH (09:21)
[2020-01-09] MEDS: OMEPRAZOLE 20 MG CAP PO SCH (09:21)
--- NOTE | 2020-01-09 10:02 | IPN ---
DATE: 01/08/2020 Mr. Hendricks is doing well. He had paracentesis today without any complications. He has no nausea or vomiting or abdominal pain. He states he had a good bowel movement this morning. MEDICATIONS: Levofloxacin 250 mg daily, metronidazole 500 mg by mouth every 8 hours, omeprazole 20 mg daily. LABORATORIES: White count 6.3, hemoglobin 9.6, hematocrit 26.5, platelets 124, neutrophils 77%, [id number]%, monocytes 7.9%. Sodium 144, potassium 3.6, chloride 113, bicarb 23, BUN 29, creatinine 2.67, glucose 122, calcium 7.8, bilirubin 3.0, AST 57, ALT 18, alk phos 537, albumin 1.5. PHYSICAL EXAM: Temperature is 96.9, pulse 68, respirations 22, blood pressure 112/64, O2 sat 97% on room air. Heart: Normal S1-S2 with no murmurs appreciated. Lungs: Clear. No wheezes, rales, or rhonchi. Abdomen: Ascites has markedly decreased after paracentesis that was done from left lower quadrant. Extremities: +3 pitting edema on the left side. +2 pitting edema on the right side. No calf tenderness. IMPRESSION: 1. Liver cirrhosis with ascites, status post paracentesis today. He has worsening liver failure with increased bilirubin. He has a drain in the right upper quadrant which needs to be addressed by Dr. Kline, it is only draining bile. 2. Liver abscess with polymicrobial marianela including E-coli and Clostridium bacteremia initially on November 30 followed by Klebsiella pneumoniae ESBL and Amanda and the liver abscess drainage. Currently on Levaquin and Flagyl. PLAN: Reconsult Dr. Kline regarding liver drain. Continue levofloxacin and Flagyl. Patient needs endoscopy and colonoscopy for further workup of the liver cirrhosis and source of bowel perforation and bacteremia with Clostridium and E-coli. Dr. Villanueva has been consulted last week.
--- NOTE | 2020-01-09 11:34 | REP ---
ULTRASOUND ABDOMEN WITH DUPLEX DOPPLER EVALUATION OF PORTAL VASCULATURE: Real-time sonographic evaluation of the abdomen performed. The patient is status post cholecystectomy. There is intrahepatic and extrahepatic biliary dilatation, common bile duct measuring 12 mm. The liver demonstrates a cirrhotic appearance with no evidence of a mass. Pancreas could not be seen due to overlying bowel gas. Spleen is normal in size with a length of 10.4 cm. Kidneys are normal in size and echotexture, right kidney measuring 11.5 x 6.0 x 4.8 cm and left kidney 11.3 x 6.3 x 6.2 cm. There is no hydronephrosis or renal mass seen. The abdominal aorta could not be visualized. Moderate ascites is noted. Real-time ultrasound evaluation and duplex Doppler interrogation of the portal vasculature is performed. 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 It measures 11 mm in diameter. No portal flow is seen in the right portal vein with arterial waveforms noted. Left lobe is not well evaluated due to shadowing from cirrhotic changes. There may be a small portion of the main portal vein which is patient in the annamaria hepatitis. There is loss of phasicity in the hepatic veins, which are patent. Superior mesenteric vein could not be visualized. Main hepatic artery is enlarged likely compensatory due to obstructed main portal vein. There is patent flow in the splenic vein at the splenic hilum but the central aspect of the splenic vein is not visualized. The peak systolic velocity of the hepatic artery is 78.5 cm/s with resistive index 0.76. IMPRESSION: Status post cholecystectomy. Mild biliary dilatation. Cirrhotic liver. Moderate abdominal ascites. There appears to be high grade occlusion of the main portal vein with possibly trace flow in the region of the annamaria hepatis. 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 Hepatic veins are patent with loss of phasicity. Electronically Signed by Kishan Torres MD 01/09/2020 05:08 P
--- NOTE | 2020-01-09 13:16 | IPN ---
DATE OF SERVICE: 01/09/2020 ATTENDING PHYSICIAN: Anderson Valencia MD Mr. Tamayo was seen and examined this morning during bedside rounds. He was resting comfortably in his bed and states he has no complaints today. He had his paracentesis yesterday and had about 4.6 liters removed from his belly that was straw-like in color. He denies any abdominal discomfort, any fevers or chills, or night sweats. There were no overnight events reported. Dr. Perdomo evaluated the patient and recommended liver Doppler flow and a complete abdominal ultrasound, which he will have later this morning. PHYSICAL EXAMINATION: VITAL SIGNS: Temperature 97.4, pulse 70, blood pressure 90/71 (67), respiration 17, pulse oximetry 95% on room air. Intake and output (I and O): Intake total 950 mL, output total 5100 mL with a balance of negative 4150 mL. Paracentesis 460 mL. His weight this morning is 93.8 kg. GENERAL: This is a very pleasant 84-year-old gentleman who appears older than stated age. HEENT: Atraumatic, normocephalic. LUNGS: Clear to auscultate bilaterally. ABDOMEN: Abdominal ascites improved, status post paracentesis yesterday. No tenderness to palpation insertion site in the left lower quadrant. EXTREMITIES: 2-3+ pitting edema bilaterally, left worse than right. No calf tenderness. No skin changes noted. LABORATORY DATA: Hematology: WBC 5.8, hemoglobin 9.7, hematocrit 26.7, platelets 111. Chemistry: Sodium 141, potassium 3.5, chloride 112, carbon dioxide 23, anion gap 6, BUN 31, creatinine 2.88, fasting glucose 115, calcium 7.8. Paracentesis fluid: WBC 375, polymorphonuclear neutrophil (PMN) 69.1. Antinuclear antibody (ESTEBAN), antimitochondrial, and antismooth antibodies currently pending. Blood cultures times two negative for growth at 72 hours. A gram stain anaerobe and acid fast fungal stain for the paracentesis currently pending. ASSESSMENT AND PLAN: 1. Acute renal failure superimposed on chronic kidney disease, most likely secondary to his abscess and antibiotics. Continue with his Levaquin 250 mg every 24 hours, as well as the regular dose of Flagyl 500 mg for his underlying infection. His BUN and creatinine at this point in time is 31/2.88. As he has currently plateaued, it has not significantly worsened. He does have significant amount of fluid overload and will need diuresing with Lasix 20 mg by mouth daily. Will continue as such and monitor. 2. Hypotension with the setting of liver abscess. He is currently on antibiotics for his liver abscess. Will continue as such. Even though his blood pressure is slightly low this morning, he did have a paracentesis yesterday. So, do recommend albumin repletion for he did have about 5 liters removed. His hypotension is asymptomatic. So, I would recommend monitoring as such and to give the diuretics to help with his fluid overload state. 3. History of chronic diastolic congestive heart failure. The patient does appear slightly fluid overloaded with lower extremity edema 2-3 pitting edema bilaterally lower extremities. We are diuresing him gently with Lasix 20 mg by mouth daily. Will not do aggressive diuresing on the fact of problem #1. So, will monitor his fluid intake and give him a fluid restriction. Once he is placed on a diet, such as like 2 liters, but he is currently nothing by mouth for he has procedures later today. 4. Anemia. Currently stable. At this current time, does not need further intervention. Possibly secondary to his hypervolemia state. So, will monitor. His iron study does show that he has anemia of chronic disease, as well as an underlying infection. That is why there is a low in the elevated iron study levels. So, at this current time, will recommend no further intervention and to monitor his hemoglobin and hematocrit with daily laboratories and to treat the underlying infection.
--- NOTE | 2020-01-09 14:48 | IPNPDOC ---
Text Note Date of Service The patient was seen on 01/09/20. NOTE Subjective: Patient is an 84-year-old male with a PMHx Mild dementia, HTN, Chronic Diastolic CHF, A. fib, COPD, CKD3, AAA, Cervical spinal stenosis, Recent history of liver abscess with ESBL Klebsiella / E.coli, s/p drainage (12/14) and Clostridium perfrinogens bacteremia who presented to the ER because of low blood pressure. Patient was at [facility] and is transferred to [facility] for further evaluation of his hypertension. He was admitted to the hospitalist service for further evaluation and treatment. Patient has undergone paracentesis on 01/07 with removal of greater than 4000 mL of fluid Patient was seen and examined at the bedside. Currently, he denies any chest pain, shortness breath, palpitations. Denies any significant abdominal pain. Denies nausea, vomiting, diarrhea, or urinary discomfort. Objective: Vitals (See below) General: Lying in bed, appears comfortable, Awake / Alert HEENT: NC, AT CVS: +S1S2 Lungs: Fair air entry b/l, no appreciable wheezing, rhonchi or rales Abdomen: Soft, ND, NT, + drain in place Extremities: 2+ pitting edema bilaterally, - Calf tenderness Assessment and plan: Liver abscess with Cirrhosis, Decompensated Cirrhosis with Ascites - Physical with evidence of fluid overload at lower extremities - Hemodynamically stable and afebrile - No leukocytosis and lactic acidosis - Blood cultures 01/03, no growth at 5 days - Peritoneal fluid cultures pending 01/07: - Duplex US Liver 01/08: Status post cholecystectomy. Mild biliary dilatation. Cirrhotic liver. Moderate abdominal ascites. There appears to be high grade occlusion of the main portal vein with possibly trace flow in the region of the nanamaria hepatis. 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 Hepatic veins are patent with loss of phasicity. - c/w Levaquin and Metronidazole - Interventional radiology has evaluated patient and currently drain is in appropriate position; will discuss findings of Doppler flow of liver - Discussed case with gastroenterology will get MRCP to evaluate for any biliary obstruction Ascites - CT abdomen / pelvis 01/03: Moderate abdominal and pelvic ascites appears similar to the prior exam. Pigtail drainage catheter is seen in a known liver abscess. Stable left pleural fluid and adjacent parenchymal consolidation. No new findings. - s/p Paracentesis 01/07: - Patient has had fluid removal of greater than 4600 mL - Fluid not sent for cytology; no samples available - c/w Furosemide - Will need to add Spironolactone as kidney function improves Mild dementia HTN - BP well controlled - c/w Furosemide Fluid overload - possibly 2/2 decompensated cirrhosis and component of acute decompensated Systolic and Diastolic CHF (EF 40%) - Physical with evidence of gross fluid accumulation at lower extremities - c/w Furosemide - Will add Albumin to help with diuresis - Nephrology on consultation Migue solo - Currently not on rate / rhythm control - Not on full anticoagulation; Xarelto on hold COPD - no evidence of exacerbation GRACIELA on CKD3 - Cr has continued to trend up - Will give Albumin infusion; re: increased colloid fluids - Will c/w Diuretics as ordered given fluid overload - likely 2/2 cirrhosis AAA - Will have outpatient follow up for surveillance imaging Cervical spinal stenosis - c/w Tylenol PRN Recent history of liver abscess with ESBL Klebsiella / E.coli - s/p drainage (12/14) GERD / Hx of Peptic ulcers - c/w Omeprazole DVT prophylaxis - c/w TEDs/Sequentials - Xarelto on hold Code Status: - DNR / DNI VS,Fishbone, I+O VS, Fishbone, I+O Laboratory Tests 01/09/20 05:53 Vital Signs Date Time Temp Pulse Resp B/P (MAP) Pulse Ox O2 Delivery O2 Flow Rate FiO2 01/09/20 13:04 62 16 100/52 94 Room Air 01/09/20 10:00 98.3 I&O- Last 24 Hours up to 6 AM 01/09/20 06:00 Intake Total 600 ml Output Total 4830 ml Balance -4230 ml TALIA VIDAL MD Jan 09, 2020 14:48
--- NOTE | 2020-01-09 18:01 | REP ---
MRCP: MRCP exam is accomplished utilizing multiple heavily T2-weighted sequences in the axial and coronal planes with MIP reconstruction images. There is moderate abdominal ascites. The study is limited due to the ascites and patient motion. Moderate intrahepatic biliary dilatation is seen diffusely. There is moderate dilatation of the common bile duct. Maximum diameter is 10 mm. There is no definite evidence of choledocholithiasis. The patient has had a prior cholecystectomy. I cannot exclude a stricture or lesion at the ampulla. The pancreatic duct appears moderately dilated, maximum diameter in the region of the tail of the pancreas is 10 mm. In the region of the head of the pancreas, maximum diameter is 6 mm. Pancreatic duct appears to directly empty into the descending duodenum, which would be compatible with pancreas divisum. No other gross abnormalities are seen. IMPRESSION: Moderate intrahepatic and extrahepatic biliary dilatation, common bile duct measuring 10 mm maximally. Pancreatic duct is also moderately dilated up to 10 mm. No evidence of choledocholithiasis. I suspect the pancreatic duct empties directly into the descending duodenum which would be compatible with pancreas divisum. I cannot exclude a lesion at the ampulla of Vater. Moderate ascites limits evaluation. Electronically Signed by Kishan Torres MD 01/10/2020 12:38 P
--- NOTE | 2020-01-09 23:45 | CR ---
DATE OF CONSULTATION: 01/09/2020 STATUS OF PATIENT: Inpatient. REQUESTING PHYSICIAN: Hospitalist service. REASON FOR CONSULTATION: Clostridium perfringens bacteremia, rule out colonic malignancy. HISTORY OF PRESENT ILLNESS: Mr. Tamayo is an 84-year-old gentleman with dementia, diabetes, chronic obstructive pulmonary disease (COPD), chronic renal disease who presented to the hospital on 01/04/2020 with hypotension. He was found to have Clostridium perfringens bacteremia. He was diagnosed with a liver abscess which was drained by interventional radiology, with drain remaining in place, this is now producing bile c/w a biliary fistula. Consultation was initially placed to address the Clostridium perfringens bacteremia to rule out malignancy in his colon. Past medical history: liver abscess, pneumonia, spinal stenosis, congestive heart failure (CHF), atrial fibrillation, diabetes, peptic ulcer disease, dementia, pericardial effusion. Past surgical history : gastric resection for bleeding ulcer disease (Billroth II or Lindsey-en-Y as per our CT) anastomosis in late 1959 or early 's, cholecystectomy, liver abscess drain, pericardial window. SOCIAL HISTORY: Positive for former heavy alcohol use. PHYSICAL EXAMINATION: Temperature 97.3, pulse 63, respiratory rate 18, blood pressure 123/70, pulse oximetry 94% on room air. He is awake, alert and oriented times three, complaining of memory lapses. He is tremulous. Head, eyes, ears, nose and throat: Is notable for mild icterus. Neck is negative for lymphadenopathy, thyromegaly. Chest is coarse, distant breath sounds. No rhonchi or crackles. Abdomen: Reveals a drain in place in the epigastric area draining yellow clear bile. Ascites is present. No masses are palpable. Extremities: Positive for 2+ edema. LABORATORY DATA: Hemoglobin 9.7, platelet count is 111, WBCs 5.8, BUN 31, creatinine 2.88, total bilirubin 3.3, direct bilirubin 2.3, AST 54, ALT 20, alkaline phosphatase 537, albumin 1.5. CT A/P dated 12/09/2019 reveals hepatic abscess involving the left hepatic lobe, perihepatic and moderate ascites noted along with inflammatory stranding throughout the upper abdomen. Evidence of prior gastroenteric surgery, specifically surgery including what appears to be a gastric bypass, prior Lindsey-en-Y procedure. Ultrasound right upper quadrant dated 01/09/2020: Status post cholecystectomy, mild biliary dilation, cirrhotic liver, moderate abdominal ascites. There appears to be a high-grade occlusion in the main portal vein and with possibly trace flow in the region of the annamaria hepatis. 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 Hepatic vein are patent with loss of phasicity. Magnetic resonance cholangiopancreatography(MRCP) dated 01/09/2020: Moderate intra and extrahepatic biliary dilatation. Common bile duct measuring 10 mm maximally. Pancreatic duct is also moderately dilated up to 10 mm. There is no evidence of choledocholithiasis. I suspect the pancreatic duct empties directly into the descending duodenum, which would be compatible with pancreas divisum. I cannot exclude a lesion at ampulla of Vater. There is moderate ascites. IMPRESSION: 1. History of Clostridium perfrigens bacteremia. 2. Liver abscess. This was drained 3. Bile leak/fistula from drained liver abscess cavity 4. Cirrhosis with portal hypertension and ascites. 5. Portal vein thrombosis, chronic 6. Dilated common bile duct and intrahepatic ducts with increasing bilirubin.- cannot r/o ampullary lesion 7. Patient with gastric surgery; Lindsey-en-Y or Billroth type (out of reach for ERCP). 8. Increasing creatinine. Likely multifactorial/prerenal, however may be related to hepatorenal syndrome. Discussion: This is a quite complex patient with numerous active hepatic and GI diagnoses. At this time, the big question is if his renal function is deteriorating due to hepatorenal syndrome. Recommendation: 1) I would recommend that we stop his diuretics and volume expand him in the hope to see an improvement in his creatinine. I would recommend albumin of approximately 75 grams albumin today and repeat the same tomorrow following his renal function closely. 2. Provided his renal function improves, we can continue with checking a HIDA scan to assess patency of his bile duct. 3. Further recommendations to follow; however, at this time, colonoscopy is definitely on hold while we are addressing more pressing issues. AYANAD
[2020-01-10 01:36] VITALS: BP 109/54
[2020-01-10 02:00] VITALS: BP 109/54
[2020-01-10 03:46] VITALS: BP 109/54
[2020-01-10 03:47] VITALS: BP 109/54
[2020-01-10 05:39] VITALS: BP 106/54
[2020-01-10] MEDS: metroNIDAZOLE (FLAGYL) 500 MG TAB PO SCH ×3 (06:41→22:00)
[2020-01-10] MEDS: LevoFLOXacin 250 MG TABLET PO SCH (06:41)
[2020-01-10 06:46] LABS: BASO % 0.4 % (0.0-1.0); EOS # 0.1 10^3/uL (0.0-0.5); EOS % 1.1 % (0.0-3.0); HEMATOCRIT 28.2 % (42.0-52.0); HEMOGLOBIN 10.3 g/dl (13.5-17.5); LYMPH # 1.1 10^3/uL (1.5-5.0); LYMPH % 14.8 % (24.0-44.0); MEAN CORPUSCULAR HGB CONC 36.5 g/dl (32.0-36.5); MEAN CORPUSCULAR VOLUME 82.2 fl (80.0-96.0); MONO # 0.5 10^3/uL (0.0-0.8); MONO % 7.2 % (0.0-5.0); NEUTROPHILS # 5.7 10^3/uL (1.5-8.5); NEUTROPHILS % 75.8 % (36.0-66.0); PLATELET COUNT, AUTOMATED 123 10^3/uL (150-450); RED BLOOD COUNT 3.43 10^6/uL (4.30-6.10); WHITE BLOOD COUNT 7.5 10^3/uL (4.0-10.0)
[2020-01-10 07:13] LABS: CALCIUM LEVEL 8.1 MG/DL (8.8-10.2); CREATININE FOR GFR 2.84 MG/DL (0.70-1.30); GLOMERULAR FILTRATION RATE 22.7 (>35); POTASSIUM SERUM 3.7 MEQ/L (3.5-5.1)
[2020-01-10] MEDS: SERTRALINE HCL 25 MG TABLET PO SCH (08:13)
[2020-01-10] MEDS: OMEPRAZOLE 20 MG CAP PO SCH (08:13)
[2020-01-10] MEDS ORDERED: SPIRONOLACTONE 50 MG TAB PO SCH (09:00)
--- NOTE | 2020-01-10 12:43 | IPNPDOC ---
Text Note Date of Service The patient was seen on 01/10/20. NOTE Subjective: Patient is an 84-year-old male with a PMHx Mild dementia, HTN, Chronic Diastolic CHF, A. fib, COPD, CKD3, AAA, Cervical spinal stenosis, Recent history of liver abscess with ESBL Klebsiella / E.coli, s/p drainage (12/14) and Clostridium perfrinogens bacteremia who presented to the ER because of low blood pressure. Patient was at [facility] and is transferred to [facility] for further evaluation of his hypertension. He was admitted to the hospitalist service for further evaluation and treatment. Patient has undergone paracentesis on 01/07 with removal of greater than 4000 mL of fluid Patient was seen and examined at the bedside. Discussed with patient and family, Chivo Hendricks, about goals of care and poor prognosis. Patient will be adjusted to comfort measures at this time. Discussed with him plan of returning to [facility] under hospice care. Patient is agreeable and MOLST form has been updated to reflect this change. Objective: Vitals (See below) General: Lying in bed, appears comfortable, Awake / Alert / Oriented x3 HEENT: NC, AT CVS: +S1S2 Lungs: Fair air entry b/l, no appreciable wheezing, rhonchi or rales Abdomen: Soft, ND, mild distention, + drain in place Extremities: 2+ pitting edema bilaterally persists, - Calf tenderness Assessment: Liver abscess with Cirrhosis Biliary leak Decompensated Cirrhosis with Ascites Portal vein thrombosis Mild dementia HTN Fluid overload A. 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
[2020-01-10] MEDS ORDERED: SCOPOLAMINE 1MG TRANSDERMAL PATCH TOP PRN (12:45)
[2020-01-10] MEDS ORDERED: LORazepam 1 MG TAB PO PRN (12:45)
[2020-01-11] MEDS: metroNIDAZOLE (FLAGYL) 500 MG TAB PO SCH ×3 (05:29→20:49)
[2020-01-11] MEDS: LevoFLOXacin 250 MG TABLET PO SCH (05:29)
[2020-01-11] MEDS: SERTRALINE HCL 25 MG TABLET PO SCH (07:37)
[2020-01-11] MEDS: OMEPRAZOLE 20 MG CAP PO SCH (07:37)
[2020-01-11] MEDS: MORPHINE 10MG/0.5ML ORAL CONCENTRATE SOLUTION U/D SL PRN ×2 (07:38→15:19)
[2020-01-11 14:08] LABS: ANTI-MITOCHONDRIAL ANTIBODY <20.0 Units (0.0-20.0); ANTI-SMOOTH MUSCLE ANTIBODY 21 Units (0-19); ANTINUCLEAR ANTIBODIES DIRECT Negative (Negative); CERULOPLASMIN 20.2 mg/dL (16.0-31.0); EBV VIRAL CAPSID AG IgM <36.0 U/mL (0.0-35.9)
[2020-01-11] MEDS ORDERED: propofoL 200 MG/20 ML VIAL As Ordered ONE (14:43)
[2020-01-11] MEDS ORDERED: LIDOCAINE 2% 100MG/5ML SDV (FOR ANES.) As Ordered ONE (14:43)
[2020-01-12] MEDS: metroNIDAZOLE (FLAGYL) 500 MG TAB PO SCH (05:22)
[2020-01-12] MEDS: LevoFLOXacin 250 MG TABLET PO SCH (05:22)
[2020-01-12 07:06] LABS: BASO % 0.5 % (0.0-1.0); EOS # 0.1 10^3/uL (0.0-0.5); EOS % 1.8 % (0.0-3.0); HEMATOCRIT 25.2 % (42.0-52.0); HEMOGLOBIN 9.2 g/dl (13.5-17.5); LYMPH % 16.1 % (24.0-44.0); MEAN CORPUSCULAR HEMOGLOBIN 29.8 pg (27.0-33.0); MEAN CORPUSCULAR HGB CONC 36.5 g/dl (32.0-36.5); MEAN CORPUSCULAR VOLUME 81.6 fl (80.0-96.0); MONO # 0.5 10^3/uL (0.0-0.8); MONO % 8.3 % (0.0-5.0); NEUTROPHILS # 4.5 10^3/uL (1.5-8.5); NEUTROPHILS % 72.5 % (36.0-66.0); RED BLOOD COUNT 3.09 10^6/uL (4.30-6.10); WHITE BLOOD COUNT 6.1 10^3/uL (4.0-10.0)
[2020-01-12 07:23] LABS: PLATELET COUNT, AUTOMATED 99 10^3/uL (150-450)
[2020-01-12 07:34] LABS: CALCIUM LEVEL 7.9 MG/DL (8.8-10.2); CREATININE FOR GFR 2.9 MG/DL (0.70-1.30); GLOMERULAR FILTRATION RATE 22.2 (>35); POTASSIUM SERUM 3.5 MEQ/L (3.5-5.1)
[2020-01-12] MEDS ORDERED: ATIV1TAB10 PO (07:53)
[2020-01-12] MEDS ORDERED: FLAG500T PO (07:53)
[2020-01-12] MEDS ORDERED: LEVO250T12 PO (07:53)
[2020-01-12] MEDS ORDERED: HYOS125TA PO (07:54)
[2020-01-12] MEDS ORDERED: MORP20SO3 PO (07:54)
[2020-01-12] MEDS: OMEPRAZOLE 20 MG CAP PO SCH (08:18)
[2020-01-12] MEDS: SERTRALINE HCL 25 MG TABLET PO SCH (08:18)
--- NOTE | 2020-01-12 11:20 | DS.PDOC ---
Discharge Summary General Date of Admission January 04, 2020 at 17:57 Date of Discharge 01/12/2020 Discharge Summary ADMITTING DIAGNOSES / DISCHARGE DIAGNOSES: Liver abscess with Cirrhosis Biliary leak Decompensated Cirrhosis with Ascites Portal vein thrombosis Mild dementia HTN Fluid overload A. fib COPD GRACIELA on CKD3; possibly 2/2 hepatorenal syndrome AAA Cervical spinal stenosis Recent history of liver abscess with ESBL Klebsiella / E.coli GERD / Hx of Peptic ulcers DVT prophylaxis COMPLICATIONS/CHIEF COMPLAINT: Liver Abscess. HISTORY OF PRESENT ILLNESS / HOSPITAL COURSE: Patient is an 84-year-old male with a PMHx Mild dementia, HTN, Chronic Diastolic CHF, A. fib, COPD, CKD3, AAA, Cervical spinal stenosis, Recent history of liver abscess with ESBL Klebsiella / E.coli, s/p drainage (12/14) and Clostridium perfrinogens bacteremia who presented to the ER because of low blood pressure. Patient was at [facility] and is transferred to [facility] for further evaluation of his hypertension. He was admitted to the hospitalist service for further evaluation and treatment. Patient has undergone paracentesis on 01/07 with removal of greater than 4000 mL of fluid. Patient developed hepatorenal syndrome, throughout hospitalization. Was found to have portal vein thrombosis and decompensated cirrhosis. After discussion with patient and family, Chivo Hendricks, about goals of care and poor prognosis, patient will be adjusted to comfort measures. Discussed with him plan of returning to [facility] under hospice care. Patient is agreeable and MOLST form has been updated to reflect this change. essential medications were discontinued and medications for pain control and anxiety were instituted. Patient had COVID testing completed per protocol and after results were negative, was transitioned back to [facility] under [facility] status on 01/12/2020. DISCHARGE MEDICATIONS: Please see below. ALLERGIES: Please see below. PHYSICAL EXAMINATION ON DISCHARGE: VITAL SIGNS: Please see below. GENERAL: Appears comfortable, sitting up eating breakfast, no distress, oriented to person / place / time Full exam not completed LABORATORY DATA: Please see below. ACTIVITY: [As tolerated]. DISCHARGE PLAN: [facility] under comfort measures Follow-up with primary care provider if pain is not controlled DISPOSITION: [facility]. TIME SPENT ON DISCHARGE: 20 minutes. Vital Signs/I&Os Vital Signs Date Time Temp Pulse Resp B/P (MAP) Pulse Ox O2 Delivery O2 Flow Rate FiO2 01/11/20 15:49 18 Room Air 01/10/20 05:39 97.0 69 106/54 95 I&O- Last 24 Hours up to 6 AM 01/12/20 06:00 Intake Total 480 ml Output Total 330 ml Balance 150 ml Laboratory Data Labs 24H Laboratory Tests 2 01/12/20 06:24: Immature Granulocyte % (Auto) 0.8, Neutrophils (%) (Auto) 72.5H, Lymphocytes (%) (Auto) 16.1L, Monocytes (%) (Auto) 8.3H, Eosinophils (%) (Auto) 1.8, Basophils (%) (Auto) 0.5, Neutrophils # (Auto) 4.5, Lymphocytes # (Auto) 1.0L, Monocytes # (Auto) 0.5, Eosinophils # (Auto) 0.1, Basophils # (Auto) 0.0, Nucleated Red Blood Cells % (auto) 0.0, Immature Platelet Fraction 2.6, Anion Gap 10, Glomerular Filtration Rate 22.2L, Calcium Level 7.9L CBC/BMP Laboratory Tests 01/12/20 06:24 Microbiology Microbiology 01/10/20 Coronavirus COVID-19 PCR (COLE) - Final, Complete 01/08/20 Acid Fast Stain, Received Pending 01/08/20 Mycobacterial Culture, Received Pending 01/08/20 Fungal Smear, Received Pending 01/08/20 Fungal Culture, Received Pending 01/08/20 Gram Stain - Final, Complete 01/08/20 Body Fluid Culture - Final, Complete 01/08/20 Anaerobic Culture - Final, Complete 01/04/20 Blood Culture - Final, Complete NO GROWTH AFTER 5 DAYS 01/04/20 Blood Culture - Final, Complete NO GROWTH AFTER 5 DAYS Discharge Medications Scheduled Levofloxacin (Levofloxacin) 250 Mg Tablet, 250 MG PO DAILY@0600 Metronidazole (Flagyl) 500 Mg Tablet, 500 MG PO Q8H Omeprazole (Omeprazole) 20 Mg Capsule.dr, 20 MG PO DAILY, (Reported) Sertraline HCl (Sertraline HCl) 25 Mg Tablet, 25 MG PO DAILY, (Reported) Scheduled PRN Acetaminophen (Tylenol) 325 Mg Tablet, 650 MG PO Q4H PRN for PAIN / FEVER, (Reported) Bisacodyl (Bisacodyl) 10 Mg Supp.rect, 10 MG [place] DAILY PRN for CONSTIPATION, (Reported) Calcium Carbonate (Tums) 200 Mg Tab.chew, 500 MG PO Q4H PRN for INDIGESTION, (Reported) Hyoscyamine Sulfate (Hyoscyamine Sulfate) 0.125 Mg Tab.subl, 0.125 MG PO Q4HP PRN for TERMINAL SECRETIONS Use sublingually if unable to swallow Lorazepam (Ativan) 0.5 Mg Tablet, 0.5 MG PO Q4HP PRN for ANXIETY/AGITATION Use sublingually if unable to swallow Magnesium Hydroxide (Milk of Magnesia) 400 Mg/5 Ml Oral.susp, 10 ML PO DAILY PRN for CONSTIPATION, (Reported) Morphine Sulfate (Morphine Sulfate) 100 Mg/5 Ml Solution, 0.25-1 ML PO Q2H PRN for PAIN OR DYSPNEA Use sublingually if unable to swallow Allergies Coded Allergies: Penicillins (Verified Allergy, Intermediate, RASH, 12/01/19) morphine (Verified Adverse Reaction, Mild, N/V, 12/01/19) TALIA VIDAL MD Jan 12, 2020 11:20
== END 2020-01-12 10:10 | DRG 441 ==
LOC: M ED 11:38 → EDBD 11:38 → M ED INP 17:57 → ENRESERV 19:45 → M MS5PR 22:01
PROVIDERS: ADMIT General Practice; ATTEND Internal Medicine
PROC: 0W9G3ZZ Drainage of Peritoneal Cavity, Percutaneous Approach (ICD-10-PCS; principal; 2020-01-04)
DX: K75.0 Abscess of liver (principal); I50.43 Acute on chronic combined systolic (congestive) and diastolic (congestive) heart failure; K76.7 Hepatorenal syndrome; I81 Portal vein thrombosis; R18.8 Other ascites; K76.6 Portal hypertension; N17.9 Acute kidney failure, unspecified; K83.3 Fistula of bile duct; Q45.3 Other congenital malformations of pancreas and pancreatic duct; E11.319 Type 2 diabetes mellitus with unspecified diabetic retinopathy without macular edema; N18.3 Chronic kidney disease, stage 3 (moderate); J44.9 Chronic obstructive pulmonary disease, unspecified; F03.90 Unspecified dementia, unspecified severity, without behavioral disturbance, psychotic disturbance, mood disturbance, and anxiety; K74.60 Unspecified cirrhosis of liver; I48.91 Unspecified atrial fibrillation; I11.0 Hypertensive heart disease with heart failure; K21.9 Gastro-esophageal reflux disease without esophagitis; I71.4 Abdominal aortic aneurysm, without rupture; Z88.0 Allergy status to penicillin; Z88.5 Allergy status to narcotic agent; Z79.899 Other long term (current) drug therapy; Z66 Do not resuscitate; F32.9 Major depressive disorder, single episode, unspecified; I95.9 Hypotension, unspecified